=== PATIENT | male | born 1940 | race Caucasian/White ===

== ENCOUNTER 2017-10-27 19:10 | Inpatient (IN) ==
--- NOTE | 2017-10-27 19:26 | Emergency Department Note ---
Disposition Clinical Impression: Disc disorder of cervical region Disposition: Admitted As Inpatient Condition: Good Forms: ED Satisfaction Letter Time of Disposition: 20:21 General Adult HPI - General Chief complaint: ED Weakness Stated complaint: Weakness / Trouble Using Hands Time Seen by Provider: 10/27/17 19:16 Nursing Notes Reviewed: Yes Vital Signs Reviewed: Yes - History of Present Illness HPI Narrative: Several month history of productive cough. Recently had a bronchoscopy. No fevers. Complaining today of a weakness in his upper extremities earlier today. This is since resolved. Had a CT of his C-spine at the [facility] which showed some severe stenosis. No history of trauma. This relieved on its own with no medication. - Related Data Home Medications Medication Instructions Recorded Confirmed Acetaminophen [Tylenol] 650 mg PO BID 10/27/17 10/27/17 Albuterol Sulfate [Albuterol 2 puff IH Q4HR 10/27/17 10/27/17 Inhaler] Aspirin Enteric Coated [Aspirin EC] 81 mg PO DAILY 10/27/17 10/27/17 Atorvastatin [Lipitor] 40 mg PO HS 10/27/17 10/27/17 Cholecalciferol (D-3) [Vitamin D] 4,000 unit PO DAILY 10/27/17 10/27/17 DULoxetine [Cymbalta] 30 mg PO BID 10/27/17 10/27/17 Gabapentin [Neurontin] 600 mg PO TID 10/27/17 10/27/17 Lisinopril [Zestril] 5 mg PO DAILY 10/27/17 10/27/17 Loratadine [Allergy Relief] 10 mg PO DAILY 10/27/17 10/27/17 Multivitamin [One Daily Essential] 1 tab PO DAILY 10/27/17 10/27/17 Oxybutynin [Ditropan] 5 mg PO BID 10/27/17 10/27/17 Polyvinyl Alcohol [Artificial 1 drop OP QID PRN 10/27/17 10/27/17 Tears] Sildenafil Citrate [Viagra] 50 mg PO DAILY PRN 10/27/17 10/27/17 Tramadol HCl [Ultram] 50 mg PO BID PRN 10/27/17 10/27/17 glipiZIDE [Glucotrol] 5 mg PO BIDWM 10/27/17 10/27/17 Allergies Allergy/AdvReac Type Severity Reaction Status Date / Time Cyclobenzaprine Allergy See Verified 10/27/17 20:05 Comments methocarbamol Allergy See Verified 10/27/17 20:05 Comments All systems ED: reviewed and negative except as stated. Constitutional: Denies: fever, chills ENT ED: Denies: congestion Cardiovascular: Denies: chest pain, palpitations, syncope Respiratory: Reports: cough, dyspnea, hemoptysis (Since yesterday). Denies: wheezes Gastrointestinal: Denies: abdominal pain, nausea, vomiting, diarrhea, hematemesis, melena, hematochezia Genitourinary: Denies: urgency, dysuria, frequency Musculoskeletal: Denies: back pain, neck pain Neurological: Reports: weakness (Upper extremities bilaterally. Not at this time. Worse in the morning). Denies: headache Past Medical History - Past Medical History Attestation: Yes The following information was validated with the patient. Source: patient Physical Exam - General Limitations: no limitations General appearance: alert, in no apparent distress - Head Head exam: atraumatic, normocephalic, normal inspection - Eye Eye exam: Present: normal appearance, PERRL, EOMI - ENT ENT exam: normal exam, normal oropharynx, mucous membranes moist - Neck Neck exam: Present: normal inspection, full ROM, trachea midline - Chest Chest inspection: Present: normal inspection, symmetric chest wall rise. Absent : tenderness - Respiratory Respiratory exam: Present: respiratory distress (Patient is coughing frequently. ), other (Diminished lower lobes bilaterally) - Cardiovascular Cardiovascular exam: Present: regular rate, normal rhythm, normal heart sounds - Abdominal Exam Abdominal exam: Present: soft, Non-Tender. Absent: tenderness, distention, rigidity, organomegaly - Extremities Exam Extremities exam: Present: normal inspection, full ROM, normal capillary refill. Absent: tenderness, pedal edema, calf tenderness - Back Exam Back exam: Present: normal inspection, full ROM. Absent: tenderness - Neurological Exam Neurological exam: Present: alert, oriented X3, other (Patient has good shift production associate strengths bilaterally. Strong radial pulses bilaterally. 5 out of 5 strength in upper extremities at all joints. He is mentating appropriately.) - Psychiatric Psychiatric exam: Present: normal affect, normal mood - Skin Skin exam: Present: warm, dry, intact, normal color. Absent: rash, cyanosis, diaphoresis Course Course Narrative: Male patient presenting to the emergency department after being transferred from the [facility]. He had a workup there that was inclusive of a CT of his neck. This showed foraminal is stenosis. He is complaining of generalized weakness in both of his upper extremities. States it is worse in the morning. Denies any trauma. States that this is resolved at this time. 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 He is neurologically intact at this time. Denies any numbness or tingling in his extremities. He does report occasional shortness of breath. He states that he has been having shortness of breath for greater than 2 months. Does have a productive sputum for this time as well. Did try outpatient doxycycline with no relief of this. Possibly yesterday at the [facility] in [place]. He is had hemoptysis times. Not major. Just occasional. Denies any chest pain at this time. Does not wear oxygen at home and requiring 2 L of oxygen to maintain an oxygen saturation in the mid 90s. He drops to 86% on room air. His of overt edema to his extremities. Lung sounds are decreased in the bases. Abdomen is soft and nontender. Patient was given 10 mg of Decadron as well as albuterol treatment. He does have a productive cough while here. He is having a COPD exacerbation at this time. He also has a bumped troponin I 0.05. We will provide him with aspirin while here and admitted to the hospital for further evaluation of his spinal stenosis, elevated troponin and COPD. - Consultations Consultation #1: Dr Torres accepted Pt in stable condition. Time: 19:42 Vital Signs Temperature 98.2 F 10/27/17 19:18 Pulse Rate 87 10/27/17 19:18 Respiratory Rate 16 10/27/17 19:18 Blood Pressure 139/108 10/27/17 19:18 O2 Sat by Pulse Oximetry 96 10/27/17 19:18 Temperature 98.2 F 10/27/17 19:18 Pulse Rate 87 10/27/17 19:18 Respiratory Rate 16 10/27/17 19:18 Blood Pressure 139/108 10/27/17 19:18 O2 Sat by Pulse Oximetry 96 10/27/17 19:18 Oxygen Delivery Oxygen Delivery Room Air Medical Decision Making - Medical Records Medical records reviewed: Yes I reviewed the patient's medical records. - Lab Data Lab results reviewed: Yes I reviewed the patient's lab results. - Radiology Data Radiology results reviewed: Yes I reviewed the patient's radiology results.
[2017-10-27] MEDS ORDERED: Levofloxacin 750 MG/150 ML 750 MG/150 ML BAG IVPB ONE (19:41)
[2017-10-27] MEDS ORDERED: Aspirin 81 MG TAB.CHEW PO ONE (20:14)
--- NOTE | 2017-10-27 20:33 | Emergency Department Note ---
Disposition Clinical Impression: Disc disorder of cervical region Disposition: Admitted As Inpatient Condition: Good General Adult HPI - General Chief complaint: ED Neck Pain/Injury Stated complaint: Weakness / Trouble Using Hands Time Seen by Provider: 10/27/17 19:16 Source: EMS Limitations: no limitations - History of Present Illness Pain Scale: 4 - Related Data Home Medications Medication Instructions Recorded Confirmed Acetaminophen [Tylenol] 650 mg PO BID 10/27/17 10/27/17 Albuterol Sulfate [Albuterol 2 puff IH Q4HR 10/27/17 10/27/17 Inhaler] Aspirin Enteric Coated [Aspirin EC] 81 mg PO DAILY 10/27/17 10/27/17 Atorvastatin [Lipitor] 40 mg PO HS 10/27/17 10/27/17 Cholecalciferol (D-3) [Vitamin D] 4,000 unit PO DAILY 10/27/17 10/27/17 DULoxetine [Cymbalta] 30 mg PO BID 10/27/17 10/27/17 Gabapentin [Neurontin] 600 mg PO TID 10/27/17 10/27/17 Lisinopril [Zestril] 5 mg PO DAILY 10/27/17 10/27/17 Loratadine [Allergy Relief] 10 mg PO DAILY 10/27/17 10/27/17 Multivitamin [One Daily Essential] 1 tab PO DAILY 10/27/17 10/27/17 Oxybutynin [Ditropan] 5 mg PO BID 10/27/17 10/27/17 Polyvinyl Alcohol [Artificial 1 drop OP QID PRN 10/27/17 10/27/17 Tears] Sildenafil Citrate [Viagra] 50 mg PO DAILY PRN 10/27/17 10/27/17 Tramadol HCl [Ultram] 50 mg PO BID PRN 10/27/17 10/27/17 glipiZIDE [Glucotrol] 5 mg PO BIDWM 10/27/17 10/27/17 Allergies Allergy/AdvReac Type Severity Reaction Status Date / Time Cyclobenzaprine Allergy See Verified 10/27/17 20:05 Comments methocarbamol Allergy See Verified 10/27/17 20:05 Comments Constitutional: Denies: fever, chills ENT ED: Denies: congestion Cardiovascular: Denies: chest pain, palpitations, syncope Respiratory: Reports: cough, dyspnea, hemoptysis (Since yesterday). Denies: wheezes Gastrointestinal: Denies: abdominal pain, nausea, vomiting, diarrhea, hematemesis, melena, hematochezia Genitourinary: Denies: urgency, dysuria, frequency Musculoskeletal: Denies: back pain, neck pain Neurological: Reports: weakness (Upper extremities bilaterally. Not at this time. Worse in the morning). Denies: headache Past Medical History - Past Medical History Medical history: Reports: diabetes, hyperlipidemia, hypertension Psychiatric history: Reports: no psych history - Social History Smoking Status: Never smoker Smokeless Tobacco Status: No Alcohol use: Reports: none Drug use: Reports: none Physical Exam - General Limitations: no limitations General appearance: alert, in no apparent distress Course Vital Signs Temperature 98.2 F 10/27/17 19:18 Pulse Rate 87 10/27/17 19:18 Respiratory Rate 16 10/27/17 19:18 Blood Pressure 139/108 10/27/17 19:18 O2 Sat by Pulse Oximetry 96 10/27/17 19:18 Temperature 98.2 F 10/27/17 19:18 Pulse Rate 95 10/27/17 20:17 Respiratory Rate 18 10/27/17 20:17 Blood Pressure 150/85 10/27/17 20:17 O2 Sat by Pulse Oximetry 94 10/27/17 20:17 Oxygen Delivery Oxygen Delivery Nasal Cannula Attestation Statement - Attestation Attestation: I examined this patient and my medical decision-making was reviewed with the BANKING OFFICER/PA/Advanced Practice Nurse/Resident Physician. I agree with the documented findings, disposition and treatment plan as described except to the extent set forth below. Patient was sent from the [facility] for admission because of neck pain and the patient does have a CT showing significant changes however the patient also has several other problems including altered consciousness which has been occurring since he had a bronchoscopy yesterday and hypoxemia. He is supposed to be using oxygen at home but does not. His room air oxygen saturation was 86%. The patient does know the day of the week, month and year and they were the hospital. He is here with his who helps with the history. The patient will be admitted for further evaluation. 2032 Patient did use one Ultram this morning but no other pain medicine since that time. He did have a head CT at the [facility] which was negative. No head trauma. 2035
[2017-10-27] MEDS ORDERED: traMADol 50 MG TABLET PO PRN (21:03)
[2017-10-27] MEDS ORDERED: Ipratropium/Albuterol Neb 3 ML IH PRN (21:04)
[2017-10-27] MEDS ORDERED: Naloxone 0.4 MG/ML INJ IVP PRN (21:06)
[2017-10-27] MEDS ORDERED: D5% in Water 1,000 ML IVC PRN (21:09)
[2017-10-27] MEDS ORDERED: Dextrose Gel 15 GM/37.5 ML TUBE PO PRN ×2 (21:09)
[2017-10-27] MEDS ORDERED: *HR* Dextrose 50 % in Water (Syg) 50 ML SYRINGE IVP PRN (21:09)
--- NOTE | 2017-10-27 21:12 | Internal Med History&Physical ---
Date of Encounter: 10/27/17 Time of Encounter: 21:10 Internal Medicine - H&P: HPI Chief complaint: muscle weakness, productive cough for several months History of present illness: Mr. Carter is a 77 year old male with a history of diabetes, chronic pain, CKD, COPD, spinal stenosis who presents from the [facility] for chief complaint of bilateral upper extremity weakness and bilateral lower extremity proximal weakness since bronchoscopy yesterday. At baseline patient usually uses a crutch to ambulate due to balance issue and has been relying on crutches for the last 5 years. He also has a neurogenic bladder and straight catheters himself since 2012. He is a previous smoker and quit in 1996 - please smoking a couple packs a day for many years. He uses no oxygen baseline. He also has a history of spinal stenosis status post 3 back surgeries along his lumbar spine in 2002, 2010 and 2011. [facility] and [facility]. During procedure his neck was placed at an uncomfortable position. He was uncomfortable throughout procedure but did not voice this to his doctor. He was subsequently discharged home. On returning home he noted bilateral proximal lower extremity weakness and was unable to get out of the car without help. Associated with this lower extremity weakness, he also exhibited bilateral upper extremity weakness that made it difficult for him to raise both arms above the level of the elbows without mild tremor. Given these symptoms he was advised by the [facility] [facility] [place]. After a summary evaluation at [facility], he was referred to [facility] for admission. On review of symptoms with patience and , it appears that his bilateral upper extremity weakness has been slowly improving with time since the procedure. In the ER patient was found to desaturate on room air to 86%. On review he has noted productive cough for the last several months and failed outpatient doxycycline and prednisone 2 weeks ago. His oxygenation improved on 2 L nasal cannula. He is previous smoker and is no longer smoking. He uses no oxygen at baseline. Review of systems noted nonspecific occipital headache. CT [facility] CT comprising of head CT and C- spine CT which demonstrated no acute cranial findings but noted significant spinal stenosis on C-spine imaging. Past Med Surg Social Fam HX - Past Medical History Medical history: diabetes, hyperlipidemia, hypertension Psychiatric history: no psych history - Social History Smoking Status: Never smoker Smokeless Tobacco Status: No Alcohol use: none Drug use: none Internal Medicine - H&P: Meds Acetaminophen [Tylenol] 650 mg PO BID 10/27/17 [History] Albuterol Sulfate [Albuterol Inhaler] 2 puff IH Q4HR 10/27/17 [History] Aspirin Enteric Coated [Aspirin EC] 81 mg PO DAILY 10/27/17 [History] Atorvastatin [Lipitor] 40 mg PO HS 10/27/17 [History] Cholecalciferol (D-3) [Vitamin D] 4,000 unit PO DAILY 10/27/17 [History] DULoxetine [Cymbalta] 30 mg PO BID 10/27/17 [History] Gabapentin [Neurontin] 600 mg PO TID 10/27/17 [History] Lisinopril [Zestril] 5 mg PO DAILY 10/27/17 [History] Loratadine [Allergy Relief] 10 mg PO DAILY 10/27/17 [History] Multivitamin [One Daily Essential] 1 tab PO DAILY 10/27/17 [History] Oxybutynin [Ditropan] 5 mg PO BID 10/27/17 [History] Polyvinyl Alcohol [Artificial Tears] 1 drop OP QID PRN 10/27/17 [History] Sildenafil Citrate [Viagra] 50 mg PO DAILY PRN 10/27/17 [History] Tramadol HCl [Ultram] 50 mg PO BID PRN 10/27/17 [History] glipiZIDE [Glucotrol] 5 mg PO BIDWM 10/27/17 [History] 3 Allergy/AdvReac Type Severity Reaction Status Date / Time Cyclobenzaprine Allergy See Verified 10/27/17 20:05 Comments methocarbamol Allergy See Verified 10/27/17 20:05 Comments All Systems PM: A 10-system review of systems was performed and is negative for pertinent findings except as documented above in the HPI. Review of systems: ROS 14 point review of systems reviewed as best as possible given presentation. Pertinent positive or negative as per HPI or otherwise reviewed as negative - Constitutional Vitals: Temp Pulse Resp BP Pulse Ox 98.2 F 95 18 150/85 94 10/27/17 19:18 10/27/17 20:17 10/27/17 20:17 10/27/17 20:17 10/27/17 20:17 Exam: General - AAO x 3 Psych - Appropriate affect/speech. No agitation Eyes - MARQUISE. Eye lids intact. No scleral icterus Neuro - bilateral upper extremity weakness 4 minus out of 5, unable to lift both arms of both shoulders with notable weakness appreciated. No overt sensory deficits. Gait not tested but power measured as 4+ out of 5 bilateral lower extremity. Otherwise no central neuro deficits on inspection Heart - Sinus. RRR. S1 and S2 present. No added HS/murmurs appreciated. No elevated JVD appreciated. Lung - Adequate air entry b/l, No crackles, scant wheezes appreciated GI - Soft, non-tender. No hepatosplenomegaly/ascites. BS+ - No CVA/suprapubic tenderness or palpable bladder distension Skin - Intact. No rash/petechiae/ecchymosis. Warm extremities MSK - Joints with normal ROM. 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 This is likely related to position while undergoing bronchoscopy procedure now symptoms are slowly improving will consult PT/OT for further therapy and monitor closely for improvement (2) Acute bronchitis Current Visit: Yes Status: Acute Assessment and plan: IV steroids, IV azithro, duonebs - if improve a.m, would wean off send RVP Qualifiers: Bronchitis organism: unspecified organism Qualified Code(s): J20.9 - Acute bronchitis, unspecified (3) DMII (diabetes mellitus, type 2) Current Visit: Yes Status: Acute Assessment and plan: hold oral med ISS while inpatient Qualifiers: Chronic kidney disease stage: stage 3 (moderate) Qualified Code(s): E11.22 - Type 2 diabetes mellitus with diabetic chronic kidney disease; N18.3 - Chronic kidney disease, stage 3 (moderate) (4) CKD (chronic kidney disease) Current Visit: Yes Status: Acute Assessment and plan: CKD renal diet Qualifiers: Chronic kidney disease stage: stage 3 (moderate) Qualified Code(s): N18.3 - Chronic kidney disease, stage 3 (moderate) (5) Hyperkalemia Current Visit: Yes Status: Acute Assessment and plan: Mild hyperK - 5.0 from labs performed at the [place] repeat BMP in a.m renal diet hold home Lisinopril (6) Neurogenic bladder Current Visit: Yes Status: Acute Assessment and plan: straight caths intermittently - chronic - Time Spent With Patient Total time spent is greater than 50% in coordination of care (as documented) at patient's floor/unit and/or counseling patient:
[2017-10-27] MEDS ORDERED: Insulin LISPRO 300 UNITS/3 ML VIAL SQ SCH ×2 (21:15→21:45)
[2017-10-27] MEDS ORDERED: Dexamethasone 10 MG/ML VIAL IVP SCH (21:45)
[2017-10-27] MEDS: Insulin LISPRO 300 UNITS/3 ML VIAL SQ SCH (21:55)
[2017-10-27] MEDS: Ipratropium/Albuterol Neb 3 ML IH SCH (22:08)
[2017-10-27] MEDS: Acetaminophen 325 MG TABLET PO SCH (22:13)
[2017-10-28] MEDS: Ipratropium/Albuterol Neb 3 ML IH SCH ×3 (04:15→15:39)
[2017-10-28] MEDS ORDERED: *HR* Heparin 5,000 UNIT/ML VIAL SQ SCH (06:00)
[2017-10-28 06:06] LABS: Basophils % 0.4 %; Hematocrit 35.3 % (37.5-50.1); Hemoglobin 11.1 g/dL (12.9-16.9); Immature Granulocytes % 0.4 % (0-4); Lymphocytes # 0.7 K/mcL (0.6-4.6); Lymphocytes % 13.2 %; Mean Corpuscular HGB Conc 31.4 g/dL (31.6-35.5); Mean Corpuscular Hemoglobin 30.9 pg (28.0-33.3); Mean Corpuscular Volume 98.3 fL (83.0-100.0); Monocytes # 0.3 K/mcL (0.0-1.3); Monocytes % 5.5 %; Neutrophils # 4.5 K/mcL (1.6-8.9); Platelet Count 117 K/mcL (140-400); Red Blood Count 3.59 M/mcL (4.19-5.50); Red Cell Distribution Width 12.8 % (11.5-14.5); Segmented Neutrophils % 80.5 %
[2017-10-28 06:22] LABS: Calcium 8.5 mg/dL (8.6-10.3); Magnesium 2.1 mg/dL (1.6-2.6); Potassium 5.7 mEq/L (3.5-5.1)
[2017-10-28] MEDS ORDERED: Insulin LISPRO 300 UNITS/3 ML VIAL SQ SCH (07:30)
[2017-10-28 08:38] LABS: Adenovirus Not Detected (Not Detect); Bordetella Pertussis Not Detected (Not Detect); Coronavirus 229E Not Detected (Not Detect); Coronavirus HKU1 Not Detected (Not Detect); Coronavirus NL63 Not Detected (Not Detect); Coronavirus OC43 Not Detected (Not Detect); Human Metapneumovirus Not Detected (Not Detect); Human Rhinovirus/Enterovirus Not Detected (Not Detect); Influenza A Subtype 2009 H1 Not Detected (Not Detect); Influenza A Untypeable Not Detected (Not Detect); Influenza B Not Detected (Not Detect); Parainfluenza Virus 1 Not Detected (Not Detect); Parainfluenza Virus 2 Not Detected (Not Detect); Parainfluenza Virus 3 Not Detected (Not Detect); Parainfluenza Virus 4 Not Detected (Not Detect); Respiratory Syncytial Virus Not Detected (Not Detect)
[2017-10-28 08:39] LABS: Chlamydophila pneumoniae Not Detected (Not Detect); Mycoplasma pneumoniae Not Detected (Not Detect)
[2017-10-28] MEDS: Insulin LISPRO 300 UNITS/3 ML VIAL SQ SCH ×2 (08:41→12:08)
[2017-10-28] MEDS ORDERED: Gabapentin 300 MG CAPSULE PO SCH (09:00)
[2017-10-28] MEDS ORDERED: Azithromycin 500 MG in D5% in Water 250 ML IVPB SCH (09:00)
[2017-10-28] MEDS ORDERED: MethylPREDNISolone 40 MG/ML VIAL IVP SCH (09:00)
[2017-10-28] MEDS ORDERED: Cholecalciferol (D-3) 1,000 UNIT TABLET PO SCH (09:00)
[2017-10-28] MEDS ORDERED: Aspirin Enteric Coated 81 MG Tablet PO SCH (09:00)
[2017-10-28] MEDS: Acetaminophen 325 MG TABLET PO SCH (09:21)
[2017-10-28] MEDS ORDERED: 0.9 % Sodium Chloride 1,000 ML IVC ONE (10:39)
--- NOTE | 2017-10-28 15:07 | Discharge Summary ---
Orders not resulted at time of discharge: Pending orders 10/28/17 14:37 BMP [Basic Metabolic Panel] Stat Date of Encounter: 10/28/17 Time of Encounter: 15:04 - Discharge Diagnosis (1) Disc disorder of cervical region Priority: Primary Status: Acute (2) DMII (diabetes mellitus, type 2) Priority: Primary Status: Acute Qualifiers: Chronic kidney disease stage: stage 3 (moderate) Qualified Code(s): E11.22 - Type 2 diabetes mellitus with diabetic chronic kidney disease; N18.3 - Chronic kidney disease, stage 3 (moderate) (3) Acute bronchitis Priority: Primary Status: Acute Qualifiers: Bronchitis organism: unspecified organism Qualified Code(s): J20.9 - Acute bronchitis, unspecified (4) CKD (chronic kidney disease) Priority: Primary Status: Acute Qualifiers: Chronic kidney disease stage: stage 3 (moderate) Qualified Code(s): N18.3 - Chronic kidney disease, stage 3 (moderate) (5) Hyperkalemia Priority: Primary Status: Acute (6) Neurogenic bladder Priority: Primary Status: Acute Hospital course: Mr. Carter is a 77 year old male Mr. Carter is a 77 year old male with a history of diabetes, chronic pain, CKD, COPD, spinal stenosis who presented to [facility] of bilateral upper extremity weakness and bilateral lower extremity proximal weakness since bronchoscopy at [facility] the day prior. He was admitted for further workup and treatment. Bilateral upper and lower extreme weakness resolved without intervention; patient thinks this is secondary to residual anesthesia. He does have known cervical stenosis however denies radiculopathy, no pain. He was found to be hyperkalemic with K of 5.7. Home lisinopril stopped and he received IV fluids with improvement in potassium to 4.9. He was started on low-dose amlodipine for blood pressure. He is also found to have COPD exacerbation and was discharged home on Z-Galen, steroid burst. Regarding his cervical stenosis he is asymptomatic and follows with neurosurgery and [place]. He does not wish to pursue treatment for this at this time. 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 Acute symptoms resolved and requested discharge home. He was advised to continue holding lisinopril, encourage adequate hydration. Advised to establish care with PCP at the [facility]. patient and verbalize understanding. Discharge discussed with: patient - Time Spent with Patient Total time spent providing and/or coordinating discharge services: - Discharge Medications Prescriptions: amLODIPine [Norvasc] 5 mg PO DAILY #30 tablet Azithromycin [Azithromycin 6-Tab Pack] 250 mg PO PER PKG DI #6 tab predniSONE [PredniSONE] 40 mg PO DAILY 5 Days #10 tablet Home Medications: Acetaminophen [Tylenol] 650 mg PO BID 10/27/17 [History] Albuterol Sulfate [Albuterol Inhaler] 2 puff IH Q4HR 10/27/17 [History] Aspirin Enteric Coated [Aspirin EC] 81 mg PO DAILY 10/27/17 [History] Atorvastatin [Lipitor] 40 mg PO HS 10/27/17 [History] Cholecalciferol (D-3) [Vitamin D] 4,000 unit PO DAILY 10/27/17 [History] DULoxetine [Cymbalta] 30 mg PO BID 10/27/17 [History] Gabapentin [Neurontin] 600 mg PO TID 10/27/17 [History] Loratadine [Allergy Relief] 10 mg PO DAILY 10/27/17 [History] Multivitamin [One Daily Essential] 1 tab PO DAILY 10/27/17 [History] Oxybutynin [Ditropan] 5 mg PO BID 10/27/17 [History] Polyvinyl Alcohol [Artificial Tears] 1 drop OP QID PRN 10/27/17 [History] Sildenafil Citrate [Viagra] 50 mg PO DAILY PRN 10/27/17 [History] Tramadol HCl [Ultram] 50 mg PO BID PRN 10/27/17 [History] glipiZIDE [Glucotrol] 5 mg PO BIDWM 10/27/17 [History] Azithromycin [Azithromycin 6-Tab Pack] 250 mg PO PER PKG DI #6 tab 10/28/17 [Rx] amLODIPine [Norvasc] 5 mg PO DAILY #30 tablet 10/28/17 [Rx] predniSONE [PredniSONE] 40 mg PO DAILY 5 Days #10 tablet 10/28/17 [Rx] Allergies/Adverse Reactions: 3 Allergy/AdvReac Type Severity Reaction Status Date / Time Cyclobenzaprine Allergy See Verified 10/27/17 20:05 Comments methocarbamol Allergy See Verified 10/27/17 20:05 Comments Date of admission: 10/27/17 19:57 Primary care physician: PCP NONE Consults: 10/27/17 21:08 Consult to Physical Therapy [CONS] Routine Comment: Evaluate, develop and implement POC Reason for Consult: ambulate assess for placement need Does patient have active BEDREST order?: Yes Is patient medically & hemodynamically stable?: Yes Patient assessed for mobility or mobilized this visit?: Yes Discharging clinician: Ana Rosa Almazan Anticipated date of discharge: 10/28/17 - Constitutional Vitals: Temp Pulse Resp BP Pulse Ox 97.8 F 76 16 141/71 90 10/28/17 11:15 10/28/17 11:15 10/28/17 11:15 10/28/17 14:31 10/28/17 11:15 General appearance: Present: A&O X 3, no acute distress - Head Head exam: Present: atraumatic, normocephalic - Eye Eye exam: Present: PERRL, conjuntiva pink, sclera anicteric Pupils: Present: PERRL - Neck Neck exam general surgery: Present: supple, trachea midline. Absent: lymphadenopathy - Respiratory Respiratory exam: Present: CTAB. Absent: accessory muscle use, rales, rhonchi, wheezes - Cardiovascular Cardiovascular exam: Present: RRR, +S1, +S2. Absent: diastolic murmur, gallop, rubs, systolic murmur - GI/Abdominal GI/Abdominal exam: Present: normal bowel sounds, soft, no peritoneal signs. Absent: distended, tenderness - Extremities Exam Extremities exam: Present: warm, radial pulses palpable and symmetrical. Absent : calf tenderness, cyanotic, pedal edema - Neurological Exam Neurological exam: Present: CN II-XII intact, oriented X3, no focal deficits. Absent: pronater drift, facial droop, speech deficit - Skin Skin exam: Present: dry, intact - Patient Status Disposition: Home, Self-Care Condition: Good Functional capacity at discharge: uses cane/walker Overall status at discharge: patient is back to baseline - Discharge Instructions Instructions: Azithromycin (By mouth), Prednisone (By mouth), Amlodipine (By mouth), Hyperkalemia (DC) Follow Up With: Kwadwo Trejo [Family Provider] - NONE,PCP [Primary Care Provider] - (Please establish care with a primary care physician through the [facility]. It is recommended that you have a repeat basic metabolic panel within one week) - Diet and Activity Activity: increase activity as tolerated Diet: advance to your usual diet, other
[2017-10-28 15:09] VITALS: BP 147/71
[2017-10-28 15:20] LABS: Calcium 8.5 mg/dL (8.6-10.3); Potassium 4.9 mEq/L (3.5-5.1)
== END 2017-10-28 16:50 | disposition home or self-care (01) | DRG 202 ==
LOC: EMEROO 19:10 → 3BNU 19:57
PROVIDERS: ADMIT Nurse Practitioner Family; ATTEND Nurse Practitioner Family

== ENCOUNTER 2018-06-17 14:34 | Inpatient (IN) ==
[2018-06-17] MEDS ORDERED: Isovue-370 500 ML BOTTLE IVP ONE (15:29)
--- NOTE | 2018-06-17 15:39 | Emergency Department Note ---
Disposition Clinical Impression: TEE (acute kidney injury) Community acquired pneumonia Qualifiers: Laterality: unspecified laterality Qualified Code(s): J18.9 - Pneumonia, unspecified organism Lung cancer Qualifiers: Laterality: unspecified laterality Lung location: unspecified part of lung Qualified Code(s): C34.90 - Malignant neoplasm of unspecified part of uns pecified bronchus or lung UTI (urinary tract infection) Qualifiers: Urinary tract infection type: site unspecified Hematuria presence: without hematuria Qualified Code(s): N39.0 - Urinary tract infection, site not specified Disposition: Admitted As Inpatient [facility]Primary Care Provider[facility] - Forms: ED Satisfaction Letter Time of Disposition: 18:07 General Adult HPI - General Chief complaint: ED Shortness of Breath/Dyspnea Stated complaint: DANIEL Time Seen by Provider: 06/17/18 14:48 Source: patient, family Limitations: no limitations - History of Present Illness HPI Narrative: Patient is 78-year-old male with history of squamous cell lung carcinoma, diabetes who presents to the ED due to 1 week of shortness of breath, cough, elevated blood glucose levels over 400. Patient had cough and shortness of breath that has been constant. nothing to make it better. Patient also admits to having fevers and chills. Patient says he has increased urinary incontinence over the past week. He has increased fatigue, weakness, decreased appetite over the past. Patient has lost 8 pounds in the past month. Patient also has some bowel incontinence however this is not new in the past week. Patient denies dysuria, denies chest pain. Patient has a port. Pain Scale: 0 - Related Data Home Medications Medication Instructions Recorded Confirmed Acetaminophen [Tylenol] 650 mg PO BID 10/27/17 06/09/18 Aspirin Enteric Coated [Aspirin EC] 81 mg PO DAILY 10/27/17 06/09/18 Atorvastatin [Lipitor] 40 mg PO HS 10/27/17 06/09/18 Cholecalciferol (D-3) [Vitamin D] 4,000 unit PO DAILY 10/27/17 06/09/18 DULoxetine [Cymbalta] 30 mg PO BID 10/27/17 06/09/18 Gabapentin [Neurontin] 600 mg PO QID 10/27/17 06/09/18 Multivitamin [One Daily Essential] 1 tab PO DAILY 10/27/17 06/09/18 Tramadol HCl [Ultram] 50 mg PO BID PRN 10/27/17 06/09/18 glipiZIDE [Glucotrol] 10 mg PO QPM 10/27/17 06/09/18 Cyanocobalamin (Vitamin B-12) 1,000 mcg PO QTUTHSA 12/21/17 06/09/18 [Vitamin B-12] amLODIPine [Norvasc] 5 mg PO DAILY PRN 04/14/18 06/09/18 Previous Rx's Medication Instructions Recorded Lidocaine/Prilocaine [Emla] 1 appl TP DAILY #30 gm 01/02/18 Promethazine [Phenergan] 25 mg PO Q6HR PRN #30 tablet 01/02/18 OxyCODONE Oral Soln [OxyCODONE 5 mg PO Q4-6H PRN 7 Days #210 mls 02/13/18 ORAL SOLN] Magic Mouthwash [Magic Mouthwash 5 ml PO Q2H PRN #480 ml 03/17/18 BLM] Bisacodyl [Dulcolax] 5 mg PO DAILY PRN #30 tablet 04/28/18 GuaiFENesin/Dextromethorphan 5 ml PO Q6HR PRN #240 ml 04/28/18 [Robitussin/Dm] Sucralfate [Carafate] 1 gm PO QIDAC #1 oral.susp 04/28/18 Budesonide/Formoterol 160/4.5 2 puff IH BID #1 hfa.aer.ad 06/09/18 [Symbicort 160/4.5] Cetirizine HCl [Zyrtec] 10 mg PO DAILY #90 capsule 06/09/18 Allergies Allergy/AdvReac Type Severity Reaction Status Date / Time Cyclobenzaprine Allergy See Verified 06/09/18 14:16 Comments methocarbamol Allergy See Verified 06/09/18 14:16 Comments Review of Systems: Patient is pleasant Constitutional: Reports: as per HPI Eyes: Denies: vision change ENT ED: Reports: as per HPI Cardiovascular: Reports: as per HPI Respiratory: Reports: as per HPI Gastrointestinal: Denies: abdominal pain, nausea, vomiting, diarrhea Genitourinary: Reports: as per HPI Musculoskeletal: Denies: arthralgia, myalgia Integumentary: Denies: rash Neurological: Reports: headache. Denies: weakness Endocrine: Reports: as per HPI Hematological/Lymphatic: Denies: lymphadenopathy Past Medical History - Past Medical History Medical history: Reports: cancer, diabetes, hyperlipidemia, hypertension Psychiatric history: Reports: no psych history - Social History Smoking Status: Former smoker Smokeless Tobacco Status: No Alcohol use: Reports: none Drug use: Reports: none Physical Exam - General Limitations: no limitations General appearance: alert, in no apparent distress - Head Head exam: atraumatic, normocephalic, normal inspection - Eye Eye exam: Present: normal appearance, PERRL, EOMI - Neck Neck exam: Present: normal inspection, full ROM, trachea midline - Chest Chest inspection: Present: normal inspection, symmetric chest wall rise, other (Patient has a port right chest. No warmth or erythema Over port) - Respiratory Respiratory exam: Present: other (Babasilar crackles) - Cardiovascular Cardiovascular exam: Present: regular rate, normal rhythm, normal heart sounds, +S1, +S2. Absent: bradycardia, tachycardia, systolic murmur, diastolic murmur - Abdominal Exam Abdominal exam: Present: soft, Non-Tender - Extremities Exam Extremities exam: Present: normal inspection, full ROM. Absent: tenderness, pedal edema, calf tenderness - Psychiatric Psychiatric exam: Present: normal affect, normal mood - Skin Skin exam: Present: warm, dry, intact Course Vital Signs Temperature 98.5 F 06/17/18 14:37 Pulse Rate 92 06/17/18 14:37 Respiratory Rate 24 06/17/18 14:37 Blood Pressure 149/67 06/17/18 14:37 O2 Sat by Pulse Oximetry 81 06/17/18 14:37 Temperature 98.5 F 06/17/18 14:37 Pulse Rate 95 06/17/18 17:06 Respiratory Rate 22 06/17/18 17:06 Blood Pressure 160/80 06/17/18 17:06 O2 Sat by Pulse Oximetry 92 06/17/18 17:06 Oxygen Delivery Oxygen Delivery Nasal Cannula Medical Decision Making - [facility] Narrative Medical decision making narrative: Patient is tachycardic. 81 pulse ox on room air when he came to the ED. Improved to 95% on 1 L nasal cannula. Concern for infection with recent chemotherapy. CTA because of History of lung cancer. UA ordered. Labs lactic acid blood cultures also sent off. elevated white count. Patient also has UTI per urinalysis. CT chest is still pending. UA is elevated. Patient also has TEE have elevated creatinine and decreased GFR. PAtient has a multifocal pneumonia. Start broad spectrum antibiotics. Dr. Henderson accepts - Lab Data Result diagrams: 06/17/18 16:00 06/17/18 16:00 Lab Results 06/17/18 06/17/18 06/17/18 Range/Units 15:52 16:00 16:00 WBC 14.7 H (4.3-11.1) K/mcL RBC 3.41 L (4.19-5.50) M/mcL Hgb 10.7 L (12.9-16.9) g/dL Hct 33.3 L (37.5-50.1) % MCV 97.7 (83.0-100.0) fL MCH 31.4 (28.0-33.3) pg MCHC 32.1 (31.6-35.5) g/dL RDW 12.4 (11.5-14.5) % Plt Count 193 (140-400) K/mcL MPV 9.6 (9.4-12.4) fL Immature Gran % 0.7 (0-4) % Seg Neutrophils % 89.5 % Lymphocytes % 4.0 % Monocytes % 5.6 % Eosinophils % 0.1 % Basophils % 0.1 % Neutrophils # 13.2 H (1.6-8.9) K/mcL Lymphocytes # 0.6 (0.6-4.6) K/mcL Monocytes # 0.8 (0.0-1.3) K/mcL Eosinophils # 0.0 (0.0-0.6) K/mcL Basophils # 0.0 (0.0-0.2) K/mcL Sodium (136-145) mEq/L Potassium (3.5-5.1) mEq/L Chloride (98-107) mEq/L Carbon Dioxide (23-29) mEq/L BUN (8-23) mg/dL Creatinine (0.70-1.30) mg/dL Est GFR ( Amer) (> 60) Est GFR (Non-Af Amer) (> 60) BUN/Creatinine Ratio (6-26) Glucose (70-105) mg/dL Calculated Osmolality (280-300) Lactic Acid 1.1 (0.5-2.2) mmol/L Calcium (8.6-10.3) mg/dL B-Natriuretic Peptide (Less than 100) pg/mL Urine Color Yellow (Yellow) Urine Clarity Turbid A (Clear) Urine pH 5.0 (5.0-8.0) pH Units Ur Specific [place] 1.022 (1.010-1.025) Urine Protein 100 H (Neg-Trace) mg/dL Urine Glucose (UA) 250 H (Normal) mg/dL Urine Ketones Negative (Negative) mg/dL Urine Blood Moderate H (Negative) Urine Nitrite Negative (Negative) Urine Bilirubin Negative (Negative) Urine Urobilinogen Normal (Normal) mg/dL Ur Leukocyte Esterase Large H (Negative) Urine Microscopic RBC 0-3 (0-3) per hpf Urine Microscopic WBC TNTC H (0-3) per hpf Ur Squamous Epith Cells Many H (None-Few) per lpf Urine Bacteria Many H (None-Few) per hpf Hyaline Casts None Seen (None-Few) per lpf Ur Culture Indicated? NO. A (NO) 06/17/18 06/17/18 Range/Units 16:00 16:00 WBC (4.3-11.1) K/mcL RBC (4.19-5.50) M/mcL Hgb (12.9-16.9) g/dL Hct (37.5-50.1) % MCV (83.0-100.0) fL MCH (28.0-33.3) pg MCHC (31.6-35.5) g/dL RDW (11.5-14.5) % Plt Count (140-400) K/mcL MPV (9.4-12.4) fL Immature Gran % (0-4) % Seg Neutrophils % % Lymphocytes % % Monocytes % % Eosinophils % % Basophils % % Neutrophils # (1.6-8.9) K/mcL Lymphocytes # (0.6-4.6) K/mcL Monocytes # (0.0-1.3) K/mcL Eosinophils # (0.0-0.6) K/mcL Basophils # (0.0-0.2) K/mcL Sodium 132 L (136-145) mEq/L Potassium 4.8 (3.5-5.1) mEq/L Chloride 96 L (98-107) mEq/L Carbon Dioxide 25 (23-29) mEq/L BUN 48 H (8-23) mg/dL Creatinine 2.10 H (0.70-1.30) mg/dL Est GFR ( Amer) 37 L (> 60) Est GFR (Non-Af Amer) 31 L (> 60) BUN/Creatinine Ratio 23 (6-26) Glucose 376 H (70-105) mg/dL Calculated Osmolality 302 H (280-300) Lactic Acid (0.5-2.2) mmol/L Calcium 8.8 (8.6-10.3) mg/dL B-Natriuretic Peptide 223 H (Less than 100) pg/mL Urine Color (Yellow) Urine Clarity (Clear) Urine pH (5.0-8.0) pH Units Ur Specific [place] (1.010-1.025) Urine Protein (Neg-Trace) mg/dL Urine Glucose (UA) (Normal) mg/dL Urine Ketones (Negative) mg/dL Urine Blood (Negative) Urine Nitrite (Negative) Urine Bilirubin (Negative) Urine Urobilinogen (Normal) mg/dL Ur Leukocyte Esterase (Negative) Urine Microscopic RBC (0-3) per hpf Urine Microscopic WBC (0-3) per hpf Ur Squamous Epith Cells (None-Few) per lpf Urine Bacteria (None-Few) per hpf Hyaline Casts (None-Few) per lpf Ur Culture Indicated? (NO)
[2018-06-17 16:12] LABS: Basophils % 0.1 %; Eosinophils % 0.1 %; Hematocrit 33.3 % (37.5-50.1); Hemoglobin 10.7 g/dL (12.9-16.9); Immature Granulocytes % 0.7 % (0-4); Lymphocytes # 0.6 K/mcL (0.6-4.6); Mean Corpuscular HGB Conc 32.1 g/dL (31.6-35.5); Mean Corpuscular Hemoglobin 31.4 pg (28.0-33.3); Mean Corpuscular Volume 97.7 fL (83.0-100.0); Mean Platelet Volume 9.6 fL (9.4-12.4); Monocytes # 0.8 K/mcL (0.0-1.3); Monocytes % 5.6 %; Neutrophils # 13.2 K/mcL (1.6-8.9); Platelet Count 193 K/mcL (140-400); Red Blood Count 3.41 M/mcL (4.19-5.50); Red Cell Distribution Width 12.4 % (11.5-14.5); Segmented Neutrophils % 89.5 %
[2018-06-17 16:20] LABS: Bilirubin,Urine Negative (Negative); Blood,Urine Moderate (Negative); Clarity,Urine Turbid (Clear); Color,Urine Yellow (Yellow); Glucose,Urine (UA) 250 mg/dL (Normal); Ketones,Urine Negative (Negative); Leukocyte Esterase,Urine Large (Negative); Nitrite,Urine Negative (Negative); Protein,Urine 100 mg/dL (Neg-Trace); Specific Gravity,Urine 1.022 (1.010-1.025); Urobilinogen,Urine Normal (Normal)
[2018-06-17 16:22] LABS: Bacteria,Urine Many per hpf (None-Few); RBC,Urine 0-3 per hpf (0-3); Squamous Epithelial Cell,Urine Many per lpf (None-Few); WBC,Urine TNTC per hpf (0-3)
[2018-06-17 16:29] LABS: Calcium 8.8 mg/dL (8.6-10.3); Potassium 4.8 mEq/L (3.5-5.1)
[2018-06-17 16:57] LABS: Hyaline Casts,Urine None Seen per lpf (None-Few)
[2018-06-17] MEDS ORDERED: 0.9 % Sodium Chloride 500 ML IVC ONE (17:09)
[2018-06-17] MEDS ORDERED: Ipratropium/Albuterol Neb 3 ML IH ONE (18:09)
[2018-06-17] MEDS ORDERED: methylPREDNISolone 125 MG/2 ML VIAL IVP ONE (18:09)
--- NOTE | 2018-06-17 18:13 | Emergency Department Note ---
Disposition Clinical Impression: TEE (acute kidney injury) Community acquired pneumonia Qualifiers: Laterality: unspecified laterality Qualified Code(s): J18.9 - Pneumonia, unspecified organism Lung cancer Qualifiers: Laterality: unspecified laterality Lung location: unspecified part of lung Qualified Code(s): C34.90 - Malignant neoplasm of unspecified part of uns pecified bronchus or lung UTI (urinary tract infection) Qualifiers: Urinary tract infection type: site unspecified Hematuria presence: without hematuria Qualified Code(s): N39.0 - Urinary tract infection, site not specified Disposition: Admitted As Inpatient General Adult HPI - General Chief complaint: ED Shortness of Breath/Dyspnea Stated complaint: JADYN Time Seen by Provider: 06/17/18 14:48 Source: patient, family Limitations: no limitations - History of Present Illness Pain Scale: 0 - Related Data Home Medications Medication Instructions Recorded Confirmed Acetaminophen [Tylenol] 650 mg PO BID 10/27/17 06/09/18 Aspirin Enteric Coated [Aspirin EC] 81 mg PO DAILY 10/27/17 06/09/18 Atorvastatin [Lipitor] 40 mg PO HS 10/27/17 06/09/18 Cholecalciferol (D-3) [Vitamin D] 4,000 unit PO DAILY 10/27/17 06/09/18 DULoxetine [Cymbalta] 30 mg PO BID 10/27/17 06/09/18 Gabapentin [Neurontin] 600 mg PO QID 10/27/17 06/09/18 Multivitamin [One Daily Essential] 1 tab PO DAILY 10/27/17 06/09/18 Tramadol HCl [Ultram] 50 mg PO BID PRN 10/27/17 06/09/18 glipiZIDE [Glucotrol] 10 mg PO QPM 10/27/17 06/09/18 Cyanocobalamin (Vitamin B-12) 1,000 mcg PO QTUTHSA 12/21/17 06/09/18 [Vitamin B-12] amLODIPine [Norvasc] 5 mg PO DAILY PRN 04/14/18 06/09/18 Previous Rx's Medication Instructions Recorded Lidocaine/Prilocaine [Emla] 1 appl TP DAILY #30 gm 01/02/18 Promethazine [Phenergan] 25 mg PO Q6HR PRN #30 tablet 01/02/18 OxyCODONE Oral Soln [OxyCODONE 5 mg PO Q4-6H PRN 7 Days #210 mls 02/13/18 ORAL SOLN] Magic Mouthwash [Magic Mouthwash 5 ml PO Q2H PRN #480 ml 03/17/18 BLM] Bisacodyl [Dulcolax] 5 mg PO DAILY PRN #30 tablet 04/28/18 GuaiFENesin/Dextromethorphan 5 ml PO Q6HR PRN #240 ml 04/28/18 [Robitussin/Dm] Sucralfate [Carafate] 1 gm PO QIDAC #1 oral.susp 04/28/18 Budesonide/Formoterol 160/4.5 2 puff IH BID #1 hfa.aer.ad 06/09/18 [Symbicort 160/4.5] Cetirizine HCl [Zyrtec] 10 mg PO DAILY #90 capsule 06/09/18 Allergies Allergy/AdvReac Type Severity Reaction Status Date / Time Cyclobenzaprine Allergy See Verified 06/09/18 14:16 Comments methocarbamol Allergy See Verified 06/09/18 14:16 Comments Constitutional: Reports: as per HPI Eyes: Denies: vision change ENT ED: Reports: as per HPI Cardiovascular: Reports: as per HPI Respiratory: Reports: as per HPI Gastrointestinal: Denies: abdominal pain, nausea, vomiting, diarrhea Genitourinary: Reports: as per HPI Musculoskeletal: Denies: arthralgia, myalgia Integumentary: Denies: rash Neurological: Reports: headache. Denies: weakness Endocrine: Reports: as per HPI Hematological/Lymphatic: Denies: lymphadenopathy Past Medical History - Past Medical History Medical history: Reports: cancer, diabetes, hyperlipidemia, hypertension Psychiatric history: Reports: no psych history - Social History Smoking Status: Former smoker Smokeless Tobacco Status: No Alcohol use: Reports: none Drug use: Reports: none Physical Exam - General Limitations: no limitations General appearance: alert, in no apparent distress Course Vital Signs Temperature 98.5 F 06/17/18 14:37 Pulse Rate 92 06/17/18 14:37 Respiratory Rate 24 06/17/18 14:37 Blood Pressure 149/67 06/17/18 14:37 O2 Sat by Pulse Oximetry 81 06/17/18 14:37 Temperature 98.5 F 06/17/18 14:37 Pulse Rate 95 06/17/18 17:06 Respiratory Rate 22 06/17/18 17:06 Blood Pressure 160/80 06/17/18 17:06 O2 Sat by Pulse Oximetry 92 06/17/18 17:06 Oxygen Delivery Oxygen Delivery Nasal Cannula Medical Decision Making - Lab Data Result diagrams: 06/17/18 16:00 06/17/18 16:00 Lab Results 06/17/18 06/17/18 06/17/18 Range/Units 15:52 16:00 16:00 WBC 14.7 H (4.3-11.1) K/mcL RBC 3.41 L (4.19-5.50) M/mcL Hgb 10.7 L (12.9-16.9) g/dL Hct 33.3 L (37.5-50.1) % MCV 97.7 (83.0-100.0) fL MCH 31.4 (28.0-33.3) pg MCHC 32.1 (31.6-35.5) g/dL RDW 12.4 (11.5-14.5) % Plt Count 193 (140-400) K/mcL MPV 9.6 (9.4-12.4) fL Immature Gran % 0.7 (0-4) % Seg Neutrophils % 89.5 % Lymphocytes % 4.0 % Monocytes % 5.6 % Eosinophils % 0.1 % Basophils % 0.1 % Neutrophils # 13.2 H (1.6-8.9) K/mcL Lymphocytes # 0.6 (0.6-4.6) K/mcL Monocytes # 0.8 (0.0-1.3) K/mcL Eosinophils # 0.0 (0.0-0.6) K/mcL Basophils # 0.0 (0.0-0.2) K/mcL Sodium (136-145) mEq/L Potassium (3.5-5.1) mEq/L Chloride (98-107) mEq/L Carbon Dioxide (23-29) mEq/L BUN (8-23) mg/dL Creatinine (0.70-1.30) mg/dL Est GFR ( Amer) (> 60) Est GFR (Non-Af Amer) (> 60) BUN/Creatinine Ratio (6-26) Glucose (70-105) mg/dL Calculated Osmolality (280-300) Lactic Acid 1.1 (0.5-2.2) mmol/L Calcium (8.6-10.3) mg/dL B-Natriuretic Peptide (Less than 100) pg/mL Urine Color Yellow (Yellow) Urine Clarity Turbid A (Clear) Urine pH 5.0 (5.0-8.0) pH Units Ur Specific [place] 1.022 (1.010-1.025) Urine Protein 100 H (Neg-Trace) mg/dL Urine Glucose (UA) 250 H (Normal) mg/dL Urine Ketones Negative (Negative) mg/dL Urine Blood Moderate H (Negative) Urine Nitrite Negative (Negative) Urine Bilirubin Negative (Negative) Urine Urobilinogen Normal (Normal) mg/dL Ur Leukocyte Esterase Large H (Negative) Urine Microscopic RBC 0-3 (0-3) per hpf Urine Microscopic WBC TNTC H (0-3) per hpf Ur Squamous Epith Cells Many H (None-Few) per lpf Urine Bacteria Many H (None-Few) per hpf Hyaline Casts None Seen (None-Few) per lpf Ur Culture Indicated? NO. A (NO) 06/17/18 06/17/18 Range/Units 16:00 16:00 WBC (4.3-11.1) K/mcL RBC (4.19-5.50) M/mcL Hgb (12.9-16.9) g/dL Hct (37.5-50.1) % MCV (83.0-100.0) fL MCH (28.0-33.3) pg MCHC (31.6-35.5) g/dL RDW (11.5-14.5) % Plt Count (140-400) K/mcL MPV (9.4-12.4) fL Immature Gran % (0-4) % Seg Neutrophils % % Lymphocytes % % Monocytes % % Eosinophils % % Basophils % % Neutrophils # (1.6-8.9) K/mcL Lymphocytes # (0.6-4.6) K/mcL Monocytes # (0.0-1.3) K/mcL Eosinophils # (0.0-0.6) K/mcL Basophils # (0.0-0.2) K/mcL Sodium 132 L (136-145) mEq/L Potassium 4.8 (3.5-5.1) mEq/L Chloride 96 L (98-107) mEq/L Carbon Dioxide 25 (23-29) mEq/L BUN 48 H (8-23) mg/dL Creatinine 2.10 H (0.70-1.30) mg/dL Est GFR ( Amer) 37 L (> 60) Est GFR (Non-Af Amer) 31 L (> 60) BUN/Creatinine Ratio 23 (6-26) Glucose 376 H (70-105) mg/dL Calculated Osmolality 302 H (280-300) Lactic Acid (0.5-2.2) mmol/L Calcium 8.8 (8.6-10.3) mg/dL B-Natriuretic Peptide 223 H (Less than 100) pg/mL Urine Color (Yellow) Urine Clarity (Clear) Urine pH (5.0-8.0) pH Units Ur Specific [place] (1.010-1.025) Urine Protein (Neg-Trace) mg/dL Urine Glucose (UA) (Normal) mg/dL Urine Ketones (Negative) mg/dL Urine Blood (Negative) Urine Nitrite (Negative) Urine Bilirubin (Negative) Urine Urobilinogen (Normal) mg/dL Ur Leukocyte Esterase (Negative) Urine Microscopic RBC (0-3) per hpf Urine Microscopic WBC (0-3) per hpf Ur Squamous Epith Cells (None-Few) per lpf Urine Bacteria (None-Few) per hpf Hyaline Casts (None-Few) per lpf Ur Culture Indicated? (NO) Attestation Statement - Attestation Attestation: I examined this patient and my medical decision-making was reviewed with the Resident Physician. I agree with the documented findings, disposition and keren atment plan as described except to the extent set forth below. 78 year old male presents to the ED with complaints of cough and Jadyn and initial hypoxia of 81% on RA and does not use supplemental oxygen therapy. Patinet states appaers to have mulifocal pnuemonia and UTI. He has a history of lung cancer and no longer is tachycardiac. There may be a consideration for PE, howveer he cannot recieve a CTA chest and unlikely that this is a massive or submassive PE. We will recommedn VQ scan once admited to medicine for further evlaution and continued management.
--- NOTE | 2018-06-17 18:15 | Internal Med History&Physical ---
Date of Encounter: 06/17/18 Time of Encounter: 18:10 Internal Medicine - H&P: HPI Chief complaint: SOB Admitted From: Home Plans for Post Hospital Care: Home History of present illness: Mr. Carter is a 78 year old male who has history of COPD, lung cancer, hypertension hyperlipidemia, ,DM 2, diabetic neuropathy presenting emergency room for shortness of breath and the productive cough for 1 wk. 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 Her last chemotherapy 1 week ago. He started to feel shortness of breath a week ago, progressively gotten worse, and he also has productive cough with yellow isputum, he had a fever chills over last 2 days. He denies chest pain nausea vomiting. No diarrhea or constipation. In the emergency room, WBC 14.7, he had CT angio which showed bilateral multifocal pneumonia, patient is going to be admitted for pneumonia, last admission was 03/2018 for pneumonia. Past Med Surg Social Fam HX - Past Medical History Medical history: cancer, diabetes, hyperlipidemia, hypertension Additional medical history: lung CA Psychiatric history: no psych history - Past Surgical History Additional surgical history: back sx - Social History Smoking Status: Former smoker Smokeless Tobacco Status: No Alcohol use: none Drug use: none - Family History Mother Hx Family Neuromuscular Disorders: Yes (Parkinsons) Internal Medicine - H&P: Meds Acetaminophen [Tylenol] 650 mg PO BID 10/27/17 [History] Aspirin Enteric Coated [Aspirin EC] 81 mg PO DAILY 10/27/17 [History] Atorvastatin [Lipitor] 40 mg PO HS 10/27/17 [History] Cholecalciferol (D-3) [Vitamin D] 4,000 unit PO DAILY 10/27/17 [History] DULoxetine [Cymbalta] 30 mg PO BID 10/27/17 [History] Gabapentin [Neurontin] 600 mg PO QID 10/27/17 [History] Multivitamin [One Daily Essential] 1 tab PO DAILY 10/27/17 [History] Tramadol HCl [Ultram] 50 mg PO BID PRN 10/27/17 [History] glipiZIDE [Glucotrol] 10 mg PO QPM 10/27/17 [History] Cyanocobalamin (Vitamin B-12) [Vitamin B-12] 1,000 mcg PO QTUTHSA 12/21/17 [History] Lidocaine/Prilocaine [Emla] 1 appl TP DAILY #30 gm 01/02/18 [Rx] Promethazine [Phenergan] 25 mg PO Q6HR PRN #30 tablet 01/02/18 [Rx] OxyCODONE Oral Soln [OxyCODONE ORAL SOLN] 5 mg PO Q4-6H PRN 7 Days #210 mls 02/13/18 [Rx] Magic Mouthwash [Magic Mouthwash BLM] 5 ml PO Q2H PRN #480 ml 03/17/18 [Rx] amLODIPine [Norvasc] 5 mg PO DAILY PRN 04/14/18 [History] Bisacodyl [Dulcolax] 5 mg PO DAILY PRN #30 tablet 04/28/18 [Rx] GuaiFENesin/Dextromethorphan [Robitussin/Dm] 5 ml PO Q6HR PRN #240 ml 04/28/18 [Rx] Sucralfate [Carafate] 1 gm PO QIDAC #1 oral.susp 04/28/18 [Rx] Budesonide/Formoterol 160/4.5 [Symbicort 160/4.5] 2 puff IH BID #1 hfa.aer.ad 06/09/18 [Rx] Cetirizine HCl [Zyrtec] 10 mg PO DAILY #90 capsule 06/09/18 [Rx] Allergy/AdvReac Type Severity Reaction Status Date / Time Cyclobenzaprine Allergy See Verified 06/09/18 14:16 Comments methocarbamol Allergy See Verified 06/09/18 14:16 Comments All Systems PM: A 10-system review of systems was performed and is negative for pertinent findings except as documented above in the HPI. - Constitutional Vitals: Temp Pulse Resp BP Pulse Ox 98.5 F 95 22 160/80 92 06/17/18 14:37 06/17/18 17:06 06/17/18 17:06 06/17/18 17:06 06/17/18 17:06 General appearance: Present: A&O X 3, pleasant Exam: CONSTITUTIONAL: Patient appears as an age appropriate male well developed, in no acute distress. EYES Clear sclerae, bilateral pupils are equal, reactive to light and accommodation. Extraocular movements are intact RESPIRATORY: No accessory muscle use, bilateral reduced breath sounds, bilateral crackles/rales. CARDIOVASCULAR: Regular heart rate, normal S1 and S2, no murmurs GASTROINTESTINAL: bowel sounds present, soft, no tenderness. No hepatosplenomegaly. No bilateral CVA tenderness MUSCULOSKELETAL: Joints in normal range of motion, no clubbing, no edema, no cyanosis. Bilateral peripheral pulses 2+ LYMPHATIC no lymphadenopathy in neck, groin and axilla bilaterally, no thyromegaly. NEUROLOGIC: CN II to XII are grossly intact, no focal neurological deficit. Deep tendon reflexes 2+ bilaterally. Normal light touch sensation to upper and lower extremity PSYCHIATRIC: Oriented x3, with good insight, mood is euthymic. No hallucinations or delusions. SKIN: Skin warm and dry, no rashes, no open wound. Internal Med - H&P Results - Labs CBC & Chem 7: 06/17/18 16:00 06/17/18 16:00 Labs: Short CBC 06/17/18 Range/Units 16:00 WBC 14.7 H (4.3-11.1) K/mcL Hgb 10.7 L (12.9-16.9) g/dL Hct 33.3 L (37.5-50.1) % Plt Count 193 (140-400) K/mcL Neutrophils # 13.2 H (1.6-8.9) K/mcL BMP 06/17/18 16:00 Sodium 132 L Potassium 4.8 Chloride 96 L Carbon Dioxide 25 BUN 48 H Creatinine 2.10 H Glucose 376 H Calcium 8.8 Urine 06/17/18 Range/Units 16:00 Urine Color Yellow (Yellow) Urine Clarity Turbid A (Clear) Urine pH 5.0 (5.0-8.0) pH Units Ur Specific [place] 1.022 (1.010-1.025) Urine Protein 100 H (Neg-Trace) mg/dL Urine Glucose (UA) 250 H (Normal) mg/dL - Impressions ITS Impressions Chest CT 06/17/18 15:29 IMPRESSION: Multifocal heterogeneous and nodular infiltrate has developed as compared to the prior examination, greatest within the right lower lobe. Findings likely reflect multifocal pneumonia. Neoplastic infiltrate is not excluded though is less favored given the short-term interval change. Small right pleural effusion has also developed. Follow-up to resolution is recommended. D/ / Thomas Mcgregor MD / Thomas Mcgregor MD Interpreting Provider: Thomas Mcgregor MD - Assessment and plan (1) Sepsis Current Visit: Yes Status: Acute Assessment and plan: with HR >100, WBC 14.7 from pneumonia (2) HCAP (healthcare-associated pneumonia) Current Visit: Yes Status: Acute Assessment and plan: Patient presented with shortness of breath productive cough fever, WBC was elevated, CT scan shows multifocal pneumonia, last admission was 03/2018. we will treat as healthcare associated pneumonia due to recent admission chemotherapy vancomycin and cefepime and add levofloxacin (3) COPD (chronic obstructive pulmonary disease) Current Visit: Yes Status: Acute Assessment and plan: COPD acute exacerbation from pneumonia, quitted smoking in 1995, not on home O2 will add steroids and Neb Qualifiers: COPD type: COPD with acute exacerbation Qualified Code(s): J44.1 - Chronic obstructive pulmonary disease with (acute) exacerbation (4) Acute respiratory failure with hypoxia Current Visit: Yes Status: Acute Assessment and plan: Possible gram-negative and MRSA bacterial pneumonia, O2 sat 81% on RA, RR 24 from pneumonia We will check a strep pneumo antigen, Legionella antigen, sputum culture Continue vancomycin cefepime and the levofloxacin (5) Lung cancer Current Visit: Yes Status: Acute Assessment and plan: Squamous cell lung cancer, stage III, ongoing chemotherapy, last chemo 1 week ago Qualifiers: Laterality: unspecified laterality Lung location: unspecified part of lung Qualified Code(s): C34.90 - Malignant neoplasm of unspecified part of unspecified bronchus or lung (6) UTI (urinary tract infection) Current Visit: Yes Status: Acute Assessment and plan: UTI covered by cefepime Qualifiers: Urinary tract infection type: site unspecified Hematuria presence: without hematuria Qualified Code(s): N39.0 - Urinary tract infection, site not specified (7) CKD (chronic kidney disease) Current Visit: Yes Status: Chronic Assessment and plan: CK D stages 3, creatinine is alittle bit higher from baseline Qualifiers: Chronic kidney disease stage: stage 3 (moderate) Qualified Code(s): N18.3 - Chronic kidney disease, stage 3 (moderate) (8) DMII (diabetes mellitus, type 2) Current Visit: Yes Status: Chronic Assessment and plan: DM type 2, not insulin-dependent. Currently glucose is not controlled, running 400 will start insulin sliding scale Qualifiers: Diabetes mellitus usp insulin use: without roasterman use Diabetes mellitus complication status: with kidney complications Chronic kidney disease stage: stage 3 (moderate) Qualified Code(s): E11.22 - Type 2 diabetes mellitus with diabetic chronic kidney disease; N18.3 - Chronic kidney disease, stage 3 (moderate) (9) Neurogenic bladder Current Visit: Yes Status: Chronic Assessment and plan: self cath at home - Time Spent With Patient Total time spent is greater than 50% in coordination of care (as documented) at patient's floor/unit and/or counseling patient: Greater than 35 minutes
[2018-06-17] MEDS ORDERED: Naloxone 0.4 MG/ML INJ IVP PRN (18:24)
[2018-06-17] MEDS ORDERED: *HR* Dextrose 50 % in Water (Syg) 50 ML SYRINGE IVP PRN (18:35)
[2018-06-17] MEDS ORDERED: D5% in Water 1,000 ML IVC PRN (18:35)
[2018-06-17] MEDS ORDERED: Dextrose Gel 15 GM/37.5 ML TUBE PO PRN ×2 (18:35)
[2018-06-17] MEDS ORDERED: *HR* OxyCODONE Oral Soln 5 MG/5 ML UD.LIQ PO PRN (18:36)
[2018-06-17] MEDS ORDERED: Vancomycin (wt based) 1,000 MG VIAL IVPB SCH (19:00)
[2018-06-17] MEDS: Ipratropium/Albuterol Neb 3 ML IH SCH ×2 (20:06→23:27)
[2018-06-17] MEDS: Budesonide/Formoterol 160/4.5 1 PUFF INH IH SCH (20:06)
[2018-06-17] MEDS: Insulin LISPRO 300 UNITS/3 ML VIAL SQ SCH ×2 (20:44→20:47)
[2018-06-17] MEDS: Insulin DETEMIR 100 UNIT/ML X5UNITS SQ SCH (20:47)
[2018-06-17] MEDS: Levofloxacin 750 MG/150 ML 750 MG/150 ML BAG IVPB SCH (20:59)
[2018-06-17] MEDS: Multivit/Ca/Min/Fe/FA 1 TAB TABLET PO SCH (21:00)
[2018-06-17] MEDS: Acetaminophen 325 MG TABLET PO SCH (21:02)
[2018-06-17] MEDS ORDERED: Vancomycin 500 MG in 0.9 % Sodium Chloride Mini Bag 100 ML IVPB ONE (21:21)
[2018-06-17] MEDS: Gabapentin 300 MG CAPSULE PO SCH (22:17)
[2018-06-18] MEDS: methylPREDNISolone 125 MG/2 ML VIAL IVP SCH ×3 (00:53→17:21)
[2018-06-18] MEDS: *HR* Heparin 5,000 UNIT/ML VIAL SQ SCH ×3 (00:53→17:22)
[2018-06-18] MEDS: Ipratropium/Albuterol Neb 3 ML IH SCH ×6 (03:18→23:34)
[2018-06-18 06:32] LABS: Basophils % 0.1 %; Hematocrit 33.3 % (37.5-50.1); Hemoglobin 10.4 g/dL (12.9-16.9); Immature Granulocytes % 0.5 % (0-4); Lymphocytes # 0.2 K/mcL (0.6-4.6); Mean Corpuscular HGB Conc 31.2 g/dL (31.6-35.5); Mean Corpuscular Volume 99.4 fL (83.0-100.0); Mean Platelet Volume 9.8 fL (9.4-12.4); Monocytes # 0.4 K/mcL (0.0-1.3); Monocytes % 1.7 %; Platelet Count 190 K/mcL (140-400); Red Blood Count 3.35 M/mcL (4.19-5.50); Red Cell Distribution Width 12.4 % (11.5-14.5); Segmented Neutrophils % 96.7 %
[2018-06-18 07:10] LABS: Platelet Estimate Slight Decrease (Normal)
[2018-06-18] MEDS: Budesonide/Formoterol 160/4.5 1 PUFF INH IH SCH ×2 (07:16→20:10)
[2018-06-18 07:34] LABS: Estimated Average Glucose 214 mg/dl; Hemoglobin A1C 9.1 %
[2018-06-18] MEDS ORDERED: Aminoglycoside Consult 1 EACH MC ONE (08:35)
[2018-06-18] MEDS: Acetaminophen 325 MG TABLET PO SCH ×2 (10:03→21:08)
[2018-06-18] MEDS: Aspirin Enteric Coated 81 MG Tablet PO SCH (10:03)
[2018-06-18] MEDS: Multivit/Ca/Min/Fe/FA 1 TAB TABLET PO SCH (10:03)
[2018-06-18] MEDS: Loratadine 10 MG TABLET PO SCH (10:03)
[2018-06-18] MEDS: Gabapentin 300 MG CAPSULE PO SCH ×4 (10:04→21:08)
[2018-06-18] MEDS: Insulin LISPRO 300 UNITS/3 ML VIAL SQ SCH ×4 (10:32→21:12)
--- NOTE | 2018-06-18 15:09 | Internal Med Progress Note ---
Hospitalist Progress Note - Encounter Date of Encounter: 06/18/18 Time of Encounter: 15:07 - Subjective Interval History: Mr. Carter is a 78 year old male who has history of COPD, lung cancer, hypertension hyperlipidemia, ,DM 2, diabetic neuropathy presenting emergency room for shortness of breath and the productive cough for 1 wk. 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 Her last chemotherapy 1 week ago. He started to feel shortness of breath a week ago, progressively gotten worse, and he also has productive cough with yellow isputum, he had a fever chills over last 2 days. He denies chest pain nausea vomiting. No diarrhea or constipation. In the emergency room, WBC 14.7, he had CT angio which showed bilateral multifocal pneumonia, patient is going to be admitted for pneumonia, last admission was 03/2018 for pneumonia. Patient is doing better, less wheezing. He still any shortness of breasts on mild exertion, on and off spasmatic cough. His MRSA swab was negative, vancomycin DC'd - Exam Vitals: Temp Pulse Resp BP Pulse Ox 97.9 F 93 16 138/76 93 06/18/18 11:51 06/18/18 11:51 06/18/18 11:51 06/18/18 11:51 06/18/18 11:51 Exam: CONSTITUTIONAL: Patient appears as an age appropriate male well developed, in no acute distress. EYES Clear sclerae, bilateral pupils are equal, reactive to light and accommodation. Extraocular movements are intact RESPIRATORY: No accessory muscle use, bilateral reduced breath sounds, bilateral crackles/rales. CARDIOVASCULAR: Regular heart rate, normal S1 and S2, no murmurs GASTROINTESTINAL: bowel sounds present, soft, no tenderness. No hepatosplenomegaly. No bilateral CVA tenderness MUSCULOSKELETAL: Joints in normal range of motion, no clubbing, no edema, no cyanosis. Bilateral peripheral pulses 2+ LYMPHATIC no lymphadenopathy in neck, groin and axilla bilaterally, no thyromegaly. NEUROLOGIC: CN II to XII are grossly intact, no focal neurological deficit. Deep tendon reflexes 2+ bilaterally. Normal light touch sensation to upper and lower extremity PSYCHIATRIC: Oriented x3, with good insight, mood is euthymic. No hallucinations or delusions. SKIN: Skin warm and dry, no rashes, no open wound. - Assessment and Plan (1) Sepsis Current Visit: Yes Status: Acute Assessment and Plan: from mmultifocal pneumonnia with HR >100, WBC 14.7 POA (2) HCAP (healthcare-associated pneumonia) Current Visit: Yes Status: Acute Assessment and Plan: possible gram negative bacterial pneumonia. Patient presented with shortness of breath productive cough fever, WBC was elevated, CT scan shows multifocal pneumonia, last admission was 03/2018. we will treat as healthcare associated pneumonia due to recent admission chemotherapy MRSA sceen is negaitve , vancomycin is d/carlos. continue cefepime and levoflo xacin (3) COPD (chronic obstructive pulmonary disease) Current Visit: Yes Status: Acute Assessment and Plan: COPD acute exacerbation from pneumonia, quitted smoking in 1995, not on home O2 will add steroids and Neb (4) Acute respiratory failure with hypoxia Current Visit: Yes Status: Acute Assessment and Plan: Possible gram-negative bacterial pneumonia, O2 sat 81% on RA, RR 24 from pneumonia We will check a strep pneumo antigen, Legionella antigen, sputum culture Continue cefepime and the levofloxacin (5) Lung cancer Current Visit: Yes Status: Acute Assessment and Plan: Squamous cell lung cancer, stage III, ongoing chemotherapy, last chemo 1 week ago (6) UTI (urinary tract infection) Current Visit: Yes Status: Acute Assessment and Plan: UTI covered by cefepime (7) CKD (chronic kidney disease) Current Visit: Yes Status: Chronic Assessment and Plan: CK D stages 3, creatinine is a little bit higher from baseline (8) DMII (diabetes mellitus, type 2) Current Visit: Yes Status: Chronic Assessment and Plan: DM type 2, not insulin-dependent. Uncontrolled, A1C 9.1%, will add meal insulin 8 unit TID (9) Neurogenic bladder Current Visit: Yes Status: Chronic Assessment and Plan: self cath - Time Spent with Patient Total time spent is greater than 50% in coordination of care (as documented) at patient's floor/unit and/or counseling patient: 25 - 35 minutes Internal Medicine: Result - Labs CBC & Chem 7: 06/18/18 06:16 06/17/18 16:00 Labs: Short CBC 06/17/18 06/18/18 Range/Units 16:00 06:16 WBC 14.7 H 22.7 H D (4.3-11.1) K/mcL Hgb 10.7 L 10.4 L (12.9-16.9) g/dL Hct 33.3 L 33.3 L (37.5-50.1) % Plt Count 193 190 (140-400) K/mcL Neutrophils # 13.2 H 22.0 H (1.6-8.9) K/mcL BMP 06/17/18 16:00 Sodium 132 L Potassium 4.8 Chloride 96 L Carbon Dioxide 25 BUN 48 H Creatinine 2.10 H Glucose 376 H Calcium 8.8 Urine 06/17/18 Range/Units 16:00 Urine Color Yellow (Yellow) Urine Clarity Turbid A (Clear) Urine pH 5.0 (5.0-8.0) pH Units Ur Specific [place] 1.022 (1.010-1.025) Urine Protein 100 H (Neg-Trace) mg/dL Urine Glucose (UA) 250 H (Normal) mg/dL - Impressions Impressions Chest CT 06/17/18 15:29 IMPRESSION: Multifocal heterogeneous and nodular infiltrate has developed as compared to the prior examination, greatest within the right lower lobe. Findings likely reflect multifocal pneumonia. Neoplastic infiltrate is not excluded though is less favored given the short-term interval change. Small right pleural effusion has also developed. Follow-up to resolution is recommended. D/ / Thomas Mcgregor MD / Thomas Mcgregor MD Interpreting Provider: Thomas Mcgregor MD Consult Discharge Plan - Plan Referrals: Parth Fan MD [Partnered Physician] - (3) COPD (chronic obstructive pulmonary disease) Qualifiers: COPD type: COPD with acute exacerbation Qualified Code(s): J44.1 - Chronic obstructive pulmonary disease with (acute) exacerbation (5) Lung cancer Qualifiers: Laterality: unspecified laterality Lung location: unspecified part of lung Qualified Code(s): C34.90 - Malignant neoplasm of unspecified part of unspecified bronchus or lung (6) UTI (urinary tract infection) Qualifiers: Urinary tract infection type: site unspecified Hematuria presence: without hematuria Qualified Code(s): N39.0 - Urinary tract infection, site not specified (7) CKD (chronic kidney disease) Qualifiers: Chronic kidney disease stage: stage 3 (moderate) Qualified Code(s): N18.3 - Chronic kidney disease, stage 3 (moderate) (8) DMII (diabetes mellitus, type 2) Qualifiers: Diabetes mellitus correction insulin use: without correction use Diabetes mellitus complication status: with kidney complications Chronic kidney disease stage: stage 3 (moderate) Qualified Code(s): E11.22 - Type 2 diabetes mellitus with diabetic chronic kidney disease; N18.3 - Chronic kidney disease, stage 3 (moderate)
[2018-06-18] MEDS ORDERED: Insulin LISPRO 300 UNITS/3 ML VIAL SQ SCH (16:30)
[2018-06-18] MEDS: Magic Mouthwash 10 ML UD Cup PO PRN (17:22)
[2018-06-18] MEDS: Cefepime HCl 2,000 MG in 0.9 % Sodium Chloride Mini Bag 100 ML IVPB SCH (17:22)
[2018-06-18] MEDS: Insulin DETEMIR 100 UNIT/ML X5UNITS SQ SCH (21:11)
[2018-06-19] MEDS: *HR* Heparin 5,000 UNIT/ML VIAL SQ SCH ×3 (01:04→17:03)
[2018-06-19] MEDS: methylPREDNISolone 125 MG/2 ML VIAL IVP SCH ×3 (01:04→17:04)
[2018-06-19] MEDS: Ipratropium/Albuterol Neb 3 ML IH SCH ×6 (03:16→23:28)
[2018-06-19] MEDS: Cefepime HCl 2,000 MG in 0.9 % Sodium Chloride Mini Bag 100 ML IVPB SCH ×2 (05:37→17:46)
[2018-06-19 05:38] LABS: Basophils % 0.1 %; Hemoglobin 9.7 g/dL (12.9-16.9); Immature Granulocytes % 0.6 % (0-4); Lymphocytes # 0.2 K/mcL (0.6-4.6); Lymphocytes % 1.2 %; Mean Corpuscular HGB Conc 31.3 g/dL (31.6-35.5); Mean Corpuscular Hemoglobin 31.2 pg (28.0-33.3); Mean Corpuscular Volume 99.7 fL (83.0-100.0); Mean Platelet Volume 9.8 fL (9.4-12.4); Monocytes # 0.2 K/mcL (0.0-1.3); Monocytes % 1.2 %; Neutrophils # 16.3 K/mcL (1.6-8.9); Platelet Count 192 K/mcL (140-400); Red Blood Count 3.11 M/mcL (4.19-5.50); Red Cell Distribution Width 12.6 % (11.5-14.5); Segmented Neutrophils % 96.9 %
[2018-06-19 05:59] LABS: Potassium 4.5 mEq/L (3.5-5.1)
[2018-06-19] MEDS: Budesonide/Formoterol 160/4.5 1 PUFF INH IH SCH ×2 (07:32→20:08)
[2018-06-19] MEDS: Multivit/Ca/Min/Fe/FA 1 TAB TABLET PO SCH (08:44)
[2018-06-19] MEDS: Acetaminophen 325 MG TABLET PO SCH ×2 (08:44→20:45)
[2018-06-19] MEDS: Aspirin Enteric Coated 81 MG Tablet PO SCH (08:44)
[2018-06-19] MEDS: Loratadine 10 MG TABLET PO SCH (08:44)
[2018-06-19] MEDS: Gabapentin 300 MG CAPSULE PO SCH ×4 (08:45→20:45)
[2018-06-19] MEDS: Insulin LISPRO 300 UNITS/3 ML VIAL SQ SCH ×7 (08:45→20:54)
--- NOTE | 2018-06-19 13:34 | Internal Med Progress Note ---
Hospitalist Progress Note - Encounter Date of Encounter: 06/19/18 Time of Encounter: 13:34 - Subjective Interval History: Pt reports SOB but improved since admission. He denies chest pain. He denies fever or chills. He denies N/V or diarrhea. - Exam Vitals: Temp Pulse Resp BP Pulse Ox 97.8 F 94 16 123/72 97 06/19/18 11:33 06/19/18 11:33 06/19/18 11:33 06/19/18 11:33 06/19/18 11:33 Exam: CONSTITUTIONAL: Patient appears as an age appropriate male well developed, in no acute distress. EYES Clear sclerae, bilateral pupils are equal, reactive to light and accom modation. Extraocular movements are intact RESPIRATORY: No accessory muscle use, bilateral reduced breath sounds, bilateral crackles/rales. CARDIOVASCULAR: Regular heart rate, normal S1 and S2, no murmurs GASTROINTESTINAL: bowel sounds present, soft, no tenderness. No hepatosplenomegaly. No bilateral CVA tenderness MUSCULOSKELETAL: Joints in normal range of motion, no clubbing, no edema, no cyanosis. Bilateral peripheral pulses 2+ LYMPHATIC no lymphadenopathy in neck, groin and axilla bilaterally, no thyromegaly. NEUROLOGIC: CN II to XII are grossly intact, no focal neurological deficit. Deep tendon reflexes 2+ bilaterally. Normal light touch sensation to upper and lower extremity PSYCHIATRIC: Oriented x3, with good insight, mood is euthymic. No hallucinations or delusions. SKIN: Skin warm and dry, no rashes, no open wound. - Assessment and Plan (1) Sepsis Current Visit: Yes Status: Acute Assessment and Plan: Pt met due to HR > 100 and WBC 14.7 on admission. He was initially placed on Vancomycin, Levaquin, and Cefepime. Vancomycin discontinued due to neg MRSA nasal swab. Will plan to transition to PO antibiotic at discharge. (2) HCAP (healthcare-associated pneumonia) Current Visit: Yes Status: Acute Assessment and Plan: As above. Strep urine and legionella negative. Will check Mycoplasma IgG and IgM (3) Acute respiratory failure with hypoxia Current Visit: Yes Status: Acute Assessment and Plan: Possible gram-negative bacterial pneumonia. On admission, O2 sat 81% on RA, RR 24 from pneumonia Strep pneumonia antigen and Legionella antigen negtaive. Sputum culture ordered but sample not yet collected. Continue cefepime and the levofloxacin (4) COPD (chronic obstructive pulmonary disease) Current Visit: Yes Status: Acute Assessment and Plan: COPD acute exacerbation from pneumonia. Former smoker, quit smoking in 1995. Pt states he is not on home O2 Will continue on scheduled and PRN nebs and steroids. Also on Budesonide (5) Lung cancer Current Visit: Yes Status: Acute Assessment and Plan: Squamous cell lung cancer stage III. Ongoing chemotherapy, last chemo approx 1 week ago. (6) Chronic kidney disease, stage 3 Current Visit: Yes Status: Acute Assessment and Plan: CK D stages 3, creatinine is a little bit higher from baseline. (7) Neurogenic bladder Current Visit: Yes Status: Chronic Assessment and Plan: self caths (8) UTI (urinary tract infection) Current Visit: Yes Status: Acute Assessment and Plan: on Cefepime. DVT Prophylaxis: Heparin - Summary of Assessment and Plan Summary of Assessment and Plan: History of present illness: Dr. Smith Mr. Carter is a 78 year old male who has history of COPD, lung cancer, hypertension hyperlipidemia, ,DM 2, diabetic neuropathy presenting emergency room for shortness of breath and the productive cough for 1 wk. 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 Her last chemotherapy 1 week ago. He started to feel shortness of breath a week ago, progressively gotten worse, and he also has productive cough with yellow isputum, he had a fever chills over last 2 days. He denies chest pain nausea vomiting. No diarrhea or constipation. In the emergency room, WBC 14.7, he had CT angio which showed bilateral multifocal pneumonia, patient is going to be admitted for pneumonia, last admission was 03/2018 for pneumonia. - Time Spent with Patient Total time spent is greater than 50% in coordination of care (as documented) at patient's floor/unit and/or counseling patient: less than 15 minutes Plan of Care Discussed with: patient Internal Medicine: Result - Labs CBC & Chem 7: 06/19/18 05:17 06/19/18 05:17 Labs: Short CBC 06/19/18 Range/Units 05:17 WBC 16.8 H (4.3-11.1) K/mcL Hgb 9.7 L (12.9-16.9) g/dL Hct 31.0 L (37.5-50.1) % Plt Count 192 (140-400) K/mcL Neutrophils # 16.3 H (1.6-8.9) K/mcL BMP 06/19/18 05:17 Sodium 133 L Potassium 4.5 Chloride 100 Carbon Dioxide 24 BUN 60 H Creatinine 2.23 H Glucose 399 H Calcium 9.0 Consult Discharge Plan - Plan Referrals: Jose Manuel Mc MD [Partnered Physician] - 06/23/18 1:00 pm (Please follow up as schedule...) (1) Sepsis Qualifiers: Sepsis type: sepsis due to unspecified organism Qualified Code(s): A41.9 - Sepsis, unspecified organism (4) COPD (chronic obstructive pulmonary disease) Qualifiers: COPD type: COPD with acute exacerbation Qualified Code(s): J44.1 - Chronic obstructive pulmonary disease with (acute) exacerbation (5) Lung cancer Qualifiers: Laterality: unspecified laterality Lung location: unspecified part of lung Qualified Code(s): C34.90 - Malignant neoplasm of unspecified part of unspecified bronchus or lung (8) UTI (urinary tract infection) Qualifiers: Urinary tract infection type: site unspecified Hematuria presence: without hematuria Qualified Code(s): N39.0 - Urinary tract infection, site not specified
[2018-06-19] MEDS: Levofloxacin 750 MG/150 ML 750 MG/150 ML BAG IVPB SCH (20:35)
[2018-06-19] MEDS: Insulin DETEMIR 100 UNIT/ML X5UNITS SQ SCH (20:54)
[2018-06-19] MEDS ORDERED: Insulin DETEMIR 100 UNIT/ML X5UNITS SQ SCH (21:00)
[2018-06-20] MEDS: *HR* Heparin 5,000 UNIT/ML VIAL SQ SCH ×3 (00:38→16:23)
[2018-06-20] MEDS: methylPREDNISolone 125 MG/2 ML VIAL IVP SCH ×2 (00:39→08:07)
[2018-06-20] MEDS: Ipratropium/Albuterol Neb 3 ML IH SCH ×6 (04:19→23:32)
[2018-06-20] MEDS: Cefepime HCl 2,000 MG in 0.9 % Sodium Chloride Mini Bag 100 ML IVPB SCH ×2 (06:18→17:35)
[2018-06-20] MEDS: Budesonide/Formoterol 160/4.5 1 PUFF INH IH SCH ×2 (07:18→19:51)
[2018-06-20] MEDS: Acetaminophen 325 MG TABLET PO SCH ×2 (08:06→20:51)
[2018-06-20] MEDS: Gabapentin 300 MG CAPSULE PO SCH ×4 (08:06→21:15)
[2018-06-20] MEDS: Loratadine 10 MG TABLET PO SCH (08:07)
[2018-06-20] MEDS: Multivit/Ca/Min/Fe/FA 1 TAB TABLET PO SCH (08:07)
[2018-06-20] MEDS: Aspirin Enteric Coated 81 MG Tablet PO SCH (08:07)
[2018-06-20] MEDS: Insulin LISPRO 300 UNITS/3 ML VIAL SQ SCH ×7 (08:08→21:17)
[2018-06-20] MEDS: Insulin DETEMIR 100 UNIT/ML X5UNITS SQ SCH ×2 (10:40→21:02)
--- NOTE | 2018-06-20 15:42 | Internal Med Progress Note ---
Hospitalist Progress Note - Encounter Date of Encounter: 06/20/18 Time of Encounter: 15:30 - Subjective Interval History: Pt reports SOB continues to improve since admission. He denies chest pain. He denies fever or chills. He denies N/V, constipation, or diarrhea. - Exam Vitals: Temp Pulse Resp BP Pulse Ox 98.3 F 107 18 126/62 94 06/20/18 10:29 06/20/18 10:29 06/20/18 10:06/20/18 10:06/20/18 10:53 Exam: CONSTITUTIONAL: Patient appears as an age appropriate male well developed, in no acute distress. EYES Clear sclerae, bilateral pupils are equal, reactive to light and accommodation. Extraocular movements are intact RESPIRATORY: No accessory muscle use, bilateral reduced breath sounds, bilateral crackles/rales. CARDIOVASCULAR: Regular heart rate, normal S1 and S2, no murmurs GASTROINTESTINAL: bowel sounds present, soft, no tenderness. No hepatos plenomegaly. No bilateral CVA tenderness MUSCULOSKELETAL: Joints in normal range of motion, no clubbing, no edema, no cyanosis. Bilateral peripheral pulses 2+ LYMPHATIC no lymphadenopathy in neck, groin and axilla bilaterally, no thyromegaly. NEUROLOGIC: CN II to XII are grossly intact, no focal neurological deficit. Deep tendon reflexes 2+ bilaterally. Normal light touch sensation to upper and lower extremity PSYCHIATRIC: Oriented x3, with good insight, mood is euthymic. No hallucinations or delusions. SKIN: Skin warm and dry, no rashes, no open wound. - Assessment and Plan (1) Sepsis Current Visit: Yes Status: Acute Assessment and Plan: Pt met due to HR > 100 and WBC 14.7 on admission. He was initially placed on Vancomycin, Levaquin, and Cefepime. Vancomycin discontinued due to neg MRSA nasal swab. Will plan to transition to PO antibiotic at discharge. (2) HCAP (healthcare-associated pneumonia) Current Visit: Yes Status: Acute Assessment and Plan: As above. checking Mycoplasma IgG and IgM (3) Acute respiratory failure with hypoxia Current Visit: Yes Status: Acute Assessment and Plan: Possible gram-negative bacterial pneumonia. On admission, O2 sat 81% on RA, RR 24 from pneumonia Strep pneumonia antigen and Legionella antigen negtaive. Sputum culture ordered but sample not yet collected. Continue cefepime and the levofloxacin. Will check home oxygen evaluation at discharge. (4) COPD (chronic obstructive pulmonary disease) Current Visit: Yes Status: Acute Assessment and Plan: COPD acute exacerbation from pneumonia. Former smoker, quit smoking in 1995. Pt states he is not on home O2 Will continue on scheduled and PRN nebs and steroids. Also on Budesonide (5) Lung cancer Current Visit: Yes Status: Acute Assessment and Plan: Squamous cell lung cancer stage III. Ongoing chemotherapy, last chemo approx 1 week ago. Follow ip out pt with oncologist. (6) Chronic kidney disease, stage 3 Current Visit: Yes Status: Acute Assessment and Plan: CK D stages 3, creatinine is a little bit higher from baseline. (7) Neurogenic bladder Current Visit: Yes Status: Chronic Assessment and Plan: self caths (8) UTI (urinary tract infection) Current Visit: Yes Status: Acute Assessment and Plan: on Cefepime. DVT Prophylaxis: Heparin - Summary of Assessment and Plan Summary of Assessment and Plan: History of present illness: Dr. Smith Mr. Carter is a 78 year old male who has history of COPD, lung cancer, hypertension hyperlipidemia, ,DM 2, diabetic neuropathy presenting emergency room for shortness of breath and the productive cough for 1 wk. 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 Her last chemotherapy 1 week ago. He started to feel shortness of breath a week ago, progressively gotten worse, and he also has productive cough with yellow isputum, he had a fever chills over last 2 days. He denies chest pain nausea vomiting. No diarrhea or constipation. In the emergency room, WBC 14.7, he had CT angio which showed bilateral multifocal pneumonia, patient is going to be admitted for pneumonia, last admission was 03/2018 for pneumonia. - Time Spent with Patient Total time spent is greater than 50% in coordination of care (as documented) at patient's floor/unit and/or counseling patient: less than 15 minutes Plan of Care Discussed with: patient Internal Medicine: Result - Labs CBC & Chem 7: 06/19/18 05:17 06/19/18 05:17 - Impressions Impressions Chest X-Ray 06/19/18 13:35 IMPRESSION: Moderate perihilar and right basilar airspace opacification that is new from prior exam. Pattern may represent asymmetric edema or underlying pneumonitis. D/ / Salvador Zapien MD / Salvador Zapien MD Interpreting Provider: Salvador Zapien MD Consult Discharge Plan - Plan Referrals: Jose Manuel Mc MD [Partnered Physician] - 06/23/18 1:00 pm (Please follow up as schedule...) (1) Sepsis Qualifiers: Sepsis type: sepsis due to unspecified organism Qualified Code(s): A41.9 - Sepsis, unspecified organism (4) COPD (chronic obstructive pulmonary disease) Qualifiers: COPD type: COPD with acute exacerbation Qualified Code(s): J44.1 - Chronic obstructive pulmonary disease with (acute) exacerbation (5) Lung cancer Qualifiers: Laterality: unspecified laterality Lung location: unspecified part of lung Qualified Code(s): C34.90 - Malignant neoplasm of unspecified part of unspecified bronchus or lung (8) UTI (urinary tract infection) Qualifiers: Urinary tract infection type: site unspecified Hematuria presence: without hematuria Qualified Code(s): N39.0 - Urinary tract infection, site not specified
[2018-06-20] MEDS: MethylPREDNISolone 40 MG/ML VIAL IVP SCH (16:23)
[2018-06-20 16:26] LABS: Basophils % 0.1 %; Hematocrit 28.6 % (37.5-50.1); Hemoglobin 9.1 g/dL (12.9-16.9); Immature Granulocytes % 0.6 % (0-4); Lymphocytes # 0.2 K/mcL (0.6-4.6); Lymphocytes % 1.8 %; Mean Corpuscular HGB Conc 31.8 g/dL (31.6-35.5); Mean Corpuscular Hemoglobin 31.2 pg (28.0-33.3); Mean Corpuscular Volume 97.9 fL (83.0-100.0); Monocytes # 0.4 K/mcL (0.0-1.3); Monocytes % 3.5 %; Neutrophils # 11.3 K/mcL (1.6-8.9); Platelet Count 183 K/mcL (140-400); Red Blood Count 2.92 M/mcL (4.19-5.50); Red Cell Distribution Width 12.5 % (11.5-14.5)
[2018-06-20 16:43] LABS: Calcium 8.5 mg/dL (8.6-10.3); Potassium 4.4 mEq/L (3.5-5.1)
[2018-06-20] MEDS: Magic Mouthwash 10 ML UD Cup PO PRN (17:36)
--- NOTE | 2018-06-20 22:28 | Electrocardiograph Report ---
[place] [id number] Test Date: 2018-06-17 Pat Name: Bo Carter Department: [id number] Room: 2A26 Gender: M [employer]room [employer] Optician: : 1940 Requested By: Daniel Barclay Order Number: [id number] Reading MD: Venkat Valdez Measurements Intervals [place] Rate: 98 P: 67 CA: 188 QRS: -63 QRSD: 109 T: 85 QT: 336 QTc: 429 Interpretive Statements Sinus tachycardia with PACs Nonspecific IVCD with LAD Inferior infarct, old Anterior infarct, old Electronically Signed On 06-20-2018 22:26:36 EST by Venkat Valdez
[2018-06-21] MEDS: *HR* Heparin 5,000 UNIT/ML VIAL SQ SCH ×2 (00:21→08:21)
[2018-06-21] MEDS: MethylPREDNISolone 40 MG/ML VIAL IVP SCH ×4 (00:22→17:23)
[2018-06-21] MEDS: Ipratropium/Albuterol Neb 3 ML IH SCH ×6 (03:55→23:40)
[2018-06-21 04:21] LABS: Hematocrit 30.1 % (37.5-50.1); Hemoglobin 9.6 g/dL (12.9-16.9); Immature Granulocytes % 0.9 % (0-4); Lymphocytes # 0.2 K/mcL (0.6-4.6); Mean Corpuscular HGB Conc 31.9 g/dL (31.6-35.5); Mean Corpuscular Hemoglobin 31.3 pg (28.0-33.3); Mean Platelet Volume 10.1 fL (9.4-12.4); Monocytes # 0.4 K/mcL (0.0-1.3); Nucleated Red Blood Cells 0.2 /100 WBC (0); Platelet Count 187 K/mcL (140-400); Red Blood Count 3.07 M/mcL (4.19-5.50); Red Cell Distribution Width 12.5 % (11.5-14.5); Segmented Neutrophils % 94.1 %
[2018-06-21 04:37] LABS: Calcium 8.8 mg/dL (8.6-10.3); Potassium 4.7 mEq/L (3.5-5.1)
[2018-06-21] MEDS: Cefepime HCl 2,000 MG in 0.9 % Sodium Chloride Mini Bag 100 ML IVPB SCH ×2 (04:45→17:24)
[2018-06-21] MEDS: Budesonide/Formoterol 160/4.5 1 PUFF INH IH SCH ×2 (07:35→19:45)
[2018-06-21] MEDS: Acetaminophen 325 MG TABLET PO SCH ×2 (08:21→20:55)
[2018-06-21] MEDS: Gabapentin 300 MG CAPSULE PO SCH ×4 (08:21→20:55)
[2018-06-21] MEDS: Loratadine 10 MG TABLET PO SCH (08:21)
[2018-06-21] MEDS: Magic Mouthwash 10 ML UD Cup PO PRN (08:22)
[2018-06-21] MEDS: Aspirin Enteric Coated 81 MG Tablet PO SCH (08:22)
[2018-06-21] MEDS: Multivit/Ca/Min/Fe/FA 1 TAB TABLET PO SCH (08:22)
[2018-06-21] MEDS: Insulin LISPRO 300 UNITS/3 ML VIAL SQ SCH ×7 (08:23→21:08)
[2018-06-21] MEDS: Insulin DETEMIR 100 UNIT/ML X5UNITS SQ SCH ×2 (08:24→21:09)
[2018-06-21 10:37] LABS: Bilirubin,Urine Negative (Negative); Blood,Urine Large (Negative); Clarity,Urine Clear (Clear); Color,Urine Dark Yellow (Yellow); Glucose,Urine (UA) 250 mg/dL (Normal); Ketones,Urine Negative (Negative); Leukocyte Esterase,Urine Small (Negative); Nitrite,Urine Negative (Negative); Protein,Urine >=1000 mg/dL (Neg-Trace); Specific Gravity,Urine 1.023 (1.010-1.025); Urobilinogen,Urine Normal (Normal)
[2018-06-21 10:55] LABS: RBC,Urine TNTC per hpf (0-3)
--- NOTE | 2018-06-21 11:12 | Urology - Consult Note ---
<Christina Damon N - Last Filed: 06/21/18 11:33> Date of Encounter: 06/21/18 Time of Encounter: 11:10 - Assessment and Plan (1) Gross hematuria Current Visit: Yes Status: Acute Assessment and plan: Patient is a 78-year-old male who presents the history of gross hematuria. Patient's urine has been sent for culture. Patient is receiving IV cefepime and Levaquin. Heparin has been held. Creatinine elevated at 2.49, and hemoglobin is stabilized. 22-Kyrgyz three-way catheter was placed with minimal difficulty. Immediate return of 1200 mL of clear urine. Hand irrigated with 120 mL of sterile water without any clot evacuation. Patient tolerated well without any complications. Urology CN:[facility] Consult date: 06/21/18 Reason for consult Urology: Gross Hematuria History of present illness: Patient is a 78-year-old male who presents with a history of gross hematuria. Patient states he is performs self intermittent catheterization due to urinary retention and incomplete bladder emptying for the last 20 years. Patient reports performing SIC 6-7 times daily and only noticed blood after most recent catheterization. Patient was admitted via the emergency department on 06/17/2017 for pneumonia, and patient has a significant past medical history for stage III pulmonary squamous cell carcinoma. Patient denies any past medical history of renal stones, prostate cancer, or other malignancy. Patient denies any known family history of prostate cancer or malignancy. Currently, patient is sitting upright in bed resting comfortably in no apparent distress. Patient reports some feeling of urgency, hesitancy and dysuria. Patient's nurse collected most recent urine sample and submitted it for urine culture. Past Med Surg Social Fam HX - Past Medical History Medical history: cancer, diabetes, hyperlipidemia, hypertension Additional medical history: lung CA Psychiatric history: no psych history - Past Surgical History Additional surgical history: back sx - Social History Smoking Status: Former smoker Smokeless Tobacco Status: No Alcohol use: none Drug use: none - Family History Mother Hx Family Neuromuscular Disorders: Yes (Parkinsons) Medications and Allergies RX: Acetaminophen [Tylenol] 650 mg PO BID 10/27/17 [History] RX: Aspirin Enteric Coated [Aspirin EC] 81 mg PO DAILY 10/27/17 [History] RX: Atorvastatin [Lipitor] 40 mg PO HS 10/27/17 [History] RX: Cholecalciferol (D-3) [Vitamin D] 4,000 unit PO DAILY 10/27/17 [History] RX: DULoxetine [Cymbalta] 30 mg PO BID 10/27/17 [History] RX: Gabapentin [Neurontin] 600 mg PO TID 10/27/17 [History] RX: Multivitamin [One Daily Essential] 1 tab PO DAILY 10/27/17 [History] RX: Tramadol HCl [Ultram] 50 mg PO BID PRN 10/27/17 [History] RX: glipiZIDE [Glucotrol] 5 mg PO BID 10/27/17 [History] Cyanocobalamin (Vitamin B-12) [Vitamin B-12] 1,000 mcg PO Q72H 12/21/17 [History] Lidocaine/Prilocaine [Emla] 1 appl TP DAILY #30 gm 01/02/18 [Rx] Promethazine [Phenergan] 25 mg PO Q6HR PRN #30 tablet 01/02/18 [Rx] RX: Magic Mouthwash [Magic Mouthwash BLM] 5 ml PO Q2H PRN #480 ml 03/17/18 [Rx] RX: Bisacodyl [Dulcolax] 5 mg PO DAILY PRN #30 tablet 04/28/18 [Rx] RX: GuaiFENesin/Dextromethorphan [Robitussin/Dm] 5 ml PO Q6HR PRN #240 ml 04/28/18 [Rx] Budesonide/Formoterol 160/4.5 [Symbicort 160/4.5] 2 puff IH BID #1 hfa.aer.ad 06/09/18 [Rx] RX: Cetirizine HCl [Zyrtec] 10 mg PO DAILY #90 capsule 06/09/18 [Rx] Pantoprazole Sodium [Protonix] 40 mg PO DAILY 06/19/18 [History] Allergy/AdvReac Type Severity Reaction Status Date / Time Cyclobenzaprine Allergy See Verified 06/09/18 14:16 Comments methocarbamol Allergy See Verified 06/09/18 14:16 Comments doxazosin AdvReac See Verified 06/19/18 23:58 Comments Review of Systems - Constitutional no chills, no fatigue, no fever(s) - EENT Nose, mouth and throat: no dizziness, no headache(s) - Cardiovascular dyspnea, no chest pain, no diaphoresis - Respiratory cough, dyspnea - Gastrointestinal no abdominal pain, no nausea, no vomiting - Genitourinary difficulty urinating, dysuria, hematuria, urinary frequency, urinary hesitancy, urinary urgency, no change in urinary stream, no flank pain, no urinary incontinence - Musculoskeletal no back pain, no muscle weakness - Integumentary no erythema, no rash - Neurological no confusion, no syncope - Psychiatric no anxiety, no confusion - Hematologic/Lymphatic no easy bleeding, no easy bruising - Allergic/Immunologic no throat swelling, no wheezing Exam Initial Vital Signs Temp Pulse Resp BP Pulse Ox 98.5 F 92 24 149/67 81 06/17/18 14:37 06/17/18 14:37 06/17/18 14:37 06/17/18 14:37 06/17/18 14:37 - General physical appearance Present: well developed, no distress, no pain - Eyes Present: PERRL, normal ocular movement - ENT Present: normal nares, no hearing loss, no congestion - Neck Present: no masses - Respiratory Present: normal respiratory effort - Abdomen Abdomen: Present: soft, non tender - Genitourinary normal penis with no external lesions Penis: Present: retractable foreskin, other (dark red clot at meatus ) Urethral meatis: Present: patent - Integumentary Present: no rash, no abnormal pigmentation - Neurologic Present: normal coordination Urology Results - Labs 06/21/18 04:00 06/21/18 04:00 Abnormal lab results WBC 11.7 K/mcL (4.3-11.1) H 06/21/18 04:00 RBC 3.07 M/mcL (4.19-5.50) L 06/21/18 04:00 Hgb 9.6 g/dL (12.9-16.9) L 06/21/18 04:00 Hct 30.1 % (37.5-50.1) L 06/21/18 04:00 Neutrophils # 11.0 K/mcL (1.6-8.9) H 06/21/18 04:00 Lymphocytes # 0.2 K/mcL (0.6-4.6) L 06/21/18 04:00 Nucleated RBCs/100 WBC 0.2 /100 WBC (0) H 06/21/18 04:00 Platelet Estimate Slight Decrease (Normal) L 06/18/18 06:16 Sodium 134 mEq/L (136-145) L 06/21/18 04:00 BUN 76 mg/dL (8-23) H 06/21/18 04:00 Creatinine 2.49 mg/dL (0.70-1.30) H 06/21/18 04:00 Est GFR ( Amer) 31 (> 60) L 06/21/18 04:00 Est GFR (Non-Af Amer) 25 (> 60) L 06/21/18 04:00 BUN/Creatinine Ratio 31 (6-26) H 06/21/18 04:00 Glucose 296 mg/dL (70-105) H 06/21/18 04:00 POC Glucose 115 mg/dL (70-99) H 06/20/18 20:43 Hemoglobin A1c 9.1 % (-5.6) H 06/17/18 15:52 Calculated Osmolality 312 (280-300) H 06/21/18 04:00 B-Natriuretic Peptide 313 pg/mL (Less than 100) H 06/18/18 06:16 Ur Specimen Adequacy See below A 06/21/18 09:50 Urine Protein >=1000 mg/dL (Neg-Trace) H 06/21/18 09:50 Urine Glucose (UA) 250 mg/dL (Normal) H 06/21/18 09:50 Urine Blood Large (Negative) H 06/21/18 09:50 Ur Leukocyte Esterase Small (Negative) H 06/21/18 09:50 Urine Microscopic RBC TNTC per hpf (0-3) H 06/21/18 09:50 Ur Squamous Epith Cells Many per lpf (None-Few) H 06/17/18 16:00 Urine Bacteria Many per hpf (None-Few) H 06/17/18 16:00 Ur Culture Indicated? YES (NO) A 06/21/18 09:50 Diabetes panel 06/20/18 06/21/18 Range/Units 16:15 04:00 Sodium 135 L 134 L (136-145) mEq/L Potassium 4.4 4.7 (3.5-5.1) mEq/L Chloride 102 103 (98-107) mEq/L Carbon Dioxide 26 25 (23-29) mEq/L BUN 75 H 76 H (8-23) mg/dL Creatinine 2.30 H 2.49 H (0.70-1.30) mg/dL Glucose 183 H 296 H (70-105) mg/dL Calcium 8.5 L 8.8 (8.6-10.3) mg/dL Calcium panel 06/20/18 06/21/18 Range/Units 16:15 04:00 Calcium 8.5 L 8.8 (8.6-10.3) mg/dL Pituitary panel 06/20/18 06/21/18 Range/Units 16:15 04:00 Sodium 135 L 134 L (136-145) mEq/L Potassium 4.4 4.7 (3.5-5.1) mEq/L Chloride 102 103 (98-107) mEq/L Carbon Dioxide 26 25 (23-29) mEq/L BUN 75 H 76 H (8-23) mg/dL Creatinine 2.30 H 2.49 H (0.70-1.30) mg/dL Glucose 183 H 296 H (70-105) mg/dL Calcium 8.5 L 8.8 (8.6-10.3) mg/dL Adrenal panel 06/20/18 06/21/18 Range/Units 16:15 04:00 Sodium 135 L 134 L (136-145) mEq/L Potassium 4.4 4.7 (3.5-5.1) mEq/L Chloride 102 103 (98-107) mEq/L Carbon Dioxide 26 25 (23-29) mEq/L BUN 75 H 76 H (8-23) mg/dL Creatinine 2.30 H 2.49 H (0.70-1.30) mg/dL Glucose 183 H 296 H (70-105) mg/dL Calcium 8.5 L 8.8 (8.6-10.3) mg/dL All other labs normal. Procedures:Urology - Bladder Irrigation/Clot Evacuation Consent obtained: verbal consent Irrigation: other (sterile water) Patient tolerated procedure: well Continuous Bladder Irrigation: No Complications: none - Catheter Insertion (Urinary) Estimated amount of urin (mLs): 1,200 Preparation: Povidone-Iodine, Urojet, Lidocaine Jelly Type of catheter inserted: 3 way, silastic Catheter Kyrgyz Size: 22 Topical anesthesia used: Yes (lidocaine jelly) Results: successfully catheterized-immediate flow Urine Appearance: Clear Patient tolerated procedure: well, no complications Complications: none Consult Discharge Plan - Plan Referrals: Jose Manuel Mc MD [Partnered Physician] - 06/23/18 1:00 pm (Please follow up as schedule...) <Rony Aguilar - Last Filed: 06/21/18 17:02> Date of Encounter: 06/21/18 - Assessment and Plan (1) Gross hematuria Current Visit: Yes Status: Acute Assessment and plan: pt seen and examined. I agree with physician promotions assistant sales marketing assessment. I suspect the patient developed a false passage and was unable to place his intermittent catheter. Combined with the anticoagulation caused the significant hematuria. Urine is clear at this time. I recommend leaving the catheter in place until Tuesday. Patient was instructed how to remove the catheter at home and then can resume intermittent catheterization. We will follow the patient and call to schedule appointment. Exam Initial Vital Signs Temp Pulse Resp BP Pulse Ox 98.5 F 92 24 149/67 81 06/17/18 14:37 06/17/18 14:37 06/17/18 14:37 06/17/18 14:37 06/17/18 14:37 Urology Results - Labs 06/21/18 04:00 06/21/18 04:00 Abnormal lab results WBC 11.7 K/mcL (4.3-11.1) H 06/21/18 04:00 RBC 3.07 M/mcL (4.19-5.50) L 06/21/18 04:00 Hgb 9.6 g/dL (12.9-16.9) L 06/21/18 04:00 Hct 30.1 % (37.5-50.1) L 06/21/18 04:00 Neutrophils # 11.0 K/mcL (1.6-8.9) H 06/21/18 04:00 Lymphocytes # 0.2 K/mcL (0.6-4.6) L 06/21/18 04:00 Nucleated RBCs/100 WBC 0.2 /100 WBC (0) H 06/21/18 04:00 Platelet Estimate Slight Decrease (Normal) L 06/18/18 06:16 Sodium 134 mEq/L (136-145) L 06/21/18 04:00 BUN 76 mg/dL (8-23) H 06/21/18 04:00 Creatinine 2.49 mg/dL (0.70-1.30) H 06/21/18 04:00 Est GFR ( Amer) 31 (> 60) L 06/21/18 04:00 Est GFR (Non-Af Amer) 25 (> 60) L 06/21/18 04:00 BUN/Creatinine Ratio 31 (6-26) H 06/21/18 04:00 Glucose 296 mg/dL (70-105) H 06/21/18 04:00 POC Glucose 115 mg/dL (70-99) H 06/20/18 20:43 Hemoglobin A1c 9.1 % (-5.6) H 06/17/18 15:52 Calculated Osmolality 312 (280-300) H 06/21/18 04:00 B-Natriuretic Peptide 313 pg/mL (Less than 100) H 06/18/18 06:16 Ur Specimen Adequacy See below A 06/21/18 09:50 Urine Protein >=1000 mg/dL (Neg-Trace) H 06/21/18 09:50 Urine Glucose (UA) 250 mg/dL (Normal) H 06/21/18 09:50 Urine Blood Large (Negative) H 06/21/18 09:50 Ur Leukocyte Esterase Small (Negative) H 06/21/18 09:50 Urine Microscopic RBC TNTC per hpf (0-3) H 06/21/18 09:50 Ur Squamous Epith Cells Many per lpf (None-Few) H 06/17/18 16:00 Urine Bacteria Many per hpf (None-Few) H 06/17/18 16:00 Ur Culture Indicated? YES (NO) A 06/21/18 09:50 Diabetes panel 06/21/18 Range/Units 04:00 Sodium 134 L (136-145) mEq/L Potassium 4.7 (3.5-5.1) mEq/L Chloride 103 (98-107) mEq/L Carbon Dioxide 25 (23-29) mEq/L BUN 76 H (8-23) mg/dL Creatinine 2.49 H (0.70-1.30) mg/dL Glucose 296 H (70-105) mg/dL Calcium 8.8 (8.6-10.3) mg/dL Calcium panel 06/21/18 Range/Units 04:00 Calcium 8.8 (8.6-10.3) mg/dL Pituitary panel 06/21/18 Range/Units 04:00 Sodium 134 L (136-145) mEq/L Potassium 4.7 (3.5-5.1) mEq/L Chloride 103 (98-107) mEq/L Carbon Dioxide 25 (23-29) mEq/L BUN 76 H (8-23) mg/dL Creatinine 2.49 H (0.70-1.30) mg/dL Glucose 296 H (70-105) mg/dL Calcium 8.8 (8.6-10.3) mg/dL Adrenal panel 06/21/18 Range/Units 04:00 Sodium 134 L (136-145) mEq/L Potassium 4.7 (3.5-5.1) mEq/L Chloride 103 (98-107) mEq/L Carbon Dioxide 25 (23-29) mEq/L BUN 76 H (8-23) mg/dL Creatinine 2.49 H (0.70-1.30) mg/dL Glucose 296 H (70-105) mg/dL Calcium 8.8 (8.6-10.3) mg/dL All other labs normal.
--- NOTE | 2018-06-21 12:28 | Internal Med Progress Note ---
Hospitalist Progress Note - Encounter Date of Encounter: 06/21/18 Time of Encounter: 12:26 - Subjective Interval History: Pt states breathing improved today. He is tolerating nasal canula. SOB continues to improve since admission. He denies chest pain. He denies fever or chills. He denies N/V, constipation, or diarrhea. He did report alona blood after self cath this am. He denies dysuria, urinary frequency or urgency. - Exam Vitals: Temp Pulse Resp BP Pulse Ox 98.7 F 91 16 141/83 96 06/21/18 11:36 06/21/18 11:36 06/21/18 11:36 06/21/18 11:36 06/21/18 11:36 Exam: CONSTITUTIONAL: Patient appears as an age appropriate male well developed, in no acute distress. EYES Clear sclerae, bilateral pupils are equal, reactive to light and accommodation. Extraocular movements are intact RESPIRATORY: No accessory muscle use, bilateral reduced breath sounds, bilateral crackles/rales. CARDIOVASCULAR: Regular heart rate, normal S1 and S2, no murmurs GASTROINTESTINAL: bowel sounds present, soft, no tenderness. No hepatosplenomegaly. No bilateral CVA tenderness MUSCULOSKELETAL: Joints in normal range of motion, no clubbing, no edema, no cyanosis. Bilateral peripheral pulses 2+ LYMPHATIC no lymphadenopathy in neck, groin and axilla bilaterally, no thyromegaly. NEUROLOGIC: CN II to XII are grossly intact, no focal neurological deficit. Deep tendon reflexes 2+ bilaterally. Normal light touch sensation to upper and lower extremity PSYCHIATRIC: Oriented x3, with good insight, mood is euthymic. No hallucinations or delusions. SKIN: Skin warm and dry, no rashes, no open wound. - Assessment and Plan (1) Sepsis Current Visit: Yes Status: Acute Assessment and Plan: Pt met due to HR > 100 and WBC 14.7 on admission. He was initially placed on Vancomycin, Levaquin, and Cefepime. Vancomycin discontinued due to neg MRSA nasal swab. Will plan to transition to PO antibiotic at discharge. (2) HCAP (healthcare-associated pneumonia) Current Visit: Yes Status: Acute Assessment and Plan: As above. Checking Mycoplasma IgG and IgM. Sent and received and awaiting final results. (3) Acute respiratory failure with hypoxia Current Visit: Yes Status: Acute Assessment and Plan: Possible gram-negative bacterial pneumonia. On admission, O2 sat 81% on RA, RR 24 from pneumonia Strep pneumonia antigen and Legionella antigen negative. Sputum culture ordered, collected, and sent. Continue cefepime and the levofloxacin. Pt qualified for home oxygen at discharge. (4) COPD (chronic obstructive pulmonary disease) Current Visit: Yes Status: Acute Assessment and Plan: COPD acute exacerbation from pneumonia. Former smoker, quit smoking in 1995. Pt states he is not on home O2 Will continue on scheduled and PRN nebs and steroids. Also on Budesonide. Pt qualified fro home oxygen (5) Lung cancer Current Visit: Yes Status: Acute Assessment and Plan: Squamous cell lung cancer stage III. Ongoing chemotherapy, last chemo approx 1 week ago from time of admission. Follow up out pt with oncologist. (6) Chronic kidney disease, stage 3 Current Visit: Yes Status: Acute Assessment and Plan: CK D stages 3. creatinine trending up. Will give some fluid and check Cr in am. If continues to trend up, will consider nephrology consult. (7) Neurogenic bladder Current Visit: Yes Status: Chronic Assessment and Plan: self caths. Pt had some hematuria this morning. Consulting Urology to see. (8) UTI (urinary tract infection) Current Visit: Yes Status: Acute Assessment and Plan: on Cefepime. (9) Hematuria Current Visit: Yes Status: Acute Assessment and Plan: Consulting urology. Holding heparin. DVT Prophylaxis: Heparin - Summary of Assessment and Plan Summary of Assessment and Plan: History of present illness: Dr. Smith Mr. Carter is a 78 year old male who has history of COPD, lung cancer, hypertension hyperlipidemia, ,DM 2, diabetic neuropathy presenting emergency room for shortness of breath and the productive cough for 1 wk. 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 Her last chemotherapy 1 week ago. He started to feel shortness of breath a week ago, progressively gotten worse, and he also has productive cough with yellow isputum, he had a fever chills over last 2 days. He denies chest pain nausea vomiting. No diarrhea or consti pation. In the emergency room, WBC 14.7, he had CT angio which showed bilateral multifocal pneumonia, patient is going to be admitted for pneumonia, last admission was 03/2018 for pneumonia. - Time Spent with Patient Total time spent is greater than 50% in coordination of care (as documented) at patient's floor/unit and/or counseling patient: less than 15 minutes Plan of Care Discussed with: patient Internal Medicine: Result - Labs CBC & Chem 7: 06/21/18 04:00 06/21/18 04:00 Labs: Short CBC 06/20/18 06/21/18 Range/Units 16:15 04:00 WBC 12.0 H 11.7 H (4.3-11.1) K/mcL Hgb 9.1 L 9.6 L (12.9-16.9) g/dL Hct 28.6 L 30.1 L (37.5-50.1) % Plt Count 183 187 (140-400) K/mcL Neutrophils # 11.3 H 11.0 H (1.6-8.9) K/mcL BMP 06/20/18 06/21/18 16:15 04:00 Sodium 135 L 134 L Potassium 4.4 4.7 Chloride 102 103 Carbon Dioxide 26 25 BUN 75 H 76 H Creatinine 2.30 H 2.49 H Glucose 183 H 296 H Calcium 8.5 L 8.8 Urine 06/21/18 Range/Units 09:50 Urine Color Dark Yellow (Yellow) Urine Clarity Clear (Clear) Urine pH 7.0 (5.0-8.0) pH Units Ur Specific [place] 1.023 (1.010-1.025) Urine Protein >=1000 H (Neg-Trace) mg/dL Urine Glucose (UA) 250 H (Normal) mg/dL Consult Discharge Plan - Plan Referrals: Jose Manuel Mc MD [Partnered Physician] - 06/23/18 1:00 pm (Please follow up as schedule...) ____ (1) Sepsis Qualifiers: Sepsis type: sepsis due to unspecified organism Qualified Code(s): A41.9 - Sepsis, unspecified organism (4) COPD (chronic obstructive pulmonary disease) Qualifiers: COPD type: COPD with acute exacerbation Qualified Code(s): J44.1 - Chronic obstructive pulmonary disease with (acute) exacerbation (5) Lung cancer Qualifiers: Laterality: unspecified laterality Lung location: unspecified part of lung Qualified Code(s): C34.90 - Malignant neoplasm of unspecified part of unspecified bronchus or lung (8) UTI (urinary tract infection) Qualifiers: Urinary tract infection type: site unspecified Hematuria presence: without hematuria Qualified Code(s): N39.0 - Urinary tract infection, site not specified
[2018-06-21] MEDS: 0.9 % Sodium Chloride 1,000 ML IVC SCH (13:34)
[2018-06-21] MEDS: Levofloxacin 750 MG/150 ML 750 MG/150 ML BAG IVPB SCH (20:55)
[2018-06-22] MEDS: 0.9 % Sodium Chloride 1,000 ML IVC SCH (01:26)
[2018-06-22] MEDS: Ipratropium/Albuterol Neb 3 ML IH SCH ×3 (03:46→11:16)
[2018-06-22] MEDS: Cefepime HCl 2,000 MG in 0.9 % Sodium Chloride Mini Bag 100 ML IVPB SCH (04:18)
[2018-06-22] MEDS: MethylPREDNISolone 40 MG/ML VIAL IVP SCH (04:18)
[2018-06-22 04:51] LABS: Basophils % 0.1 %; Hemoglobin 9.9 g/dL (12.9-16.9); Lymphocytes # 0.6 K/mcL (0.6-4.6); Lymphocytes % 5.1 %; Mean Corpuscular HGB Conc 31.9 g/dL (31.6-35.5); Mean Corpuscular Hemoglobin 31.4 pg (28.0-33.3); Mean Corpuscular Volume 98.4 fL (83.0-100.0); Monocytes # 0.8 K/mcL (0.0-1.3); Monocytes % 6.8 %; Neutrophils # 9.6 K/mcL (1.6-8.9); Platelet Count 187 K/mcL (140-400); Red Blood Count 3.15 M/mcL (4.19-5.50); Red Cell Distribution Width 12.4 % (11.5-14.5)
[2018-06-22 05:06] LABS: Calcium 8.3 mg/dL (8.6-10.3); Potassium 4.6 mEq/L (3.5-5.1)
[2018-06-22] MEDS: Insulin LISPRO 300 UNITS/3 ML VIAL SQ SCH ×2 (07:40→07:43)
[2018-06-22] MEDS: Budesonide/Formoterol 160/4.5 1 PUFF INH IH SCH (07:43)
[2018-06-22] MEDS: Insulin DETEMIR 100 UNIT/ML X5UNITS SQ SCH (07:44)
[2018-06-22] MEDS: Loratadine 10 MG TABLET PO SCH (08:36)
[2018-06-22] MEDS: Gabapentin 300 MG CAPSULE PO SCH (08:36)
[2018-06-22] MEDS: Aspirin Enteric Coated 81 MG Tablet PO SCH (08:36)
[2018-06-22] MEDS: Multivit/Ca/Min/Fe/FA 1 TAB TABLET PO SCH (08:37)
[2018-06-22] MEDS: Acetaminophen 325 MG TABLET PO SCH (08:37)
[2018-06-22] MEDS ORDERED: Insulin DETEMIR 100 UNIT/ML X5UNITS SQ SCH ×2 (09:00→10:45)
--- NOTE | 2018-06-22 09:02 | Urology Progress Note ---
<Christina Damon N - Last Filed: 06/22/18 09:00> Date of Encounter: 06/22/18 Time of Encounter: 08:45 - Assessment and Plan (1) Gross hematuria Status: Acute Assessment and plan: Patient is a 78-year-old male who presents with a history of gross hematuria and urinary retention. Patient likely created a false passage with self-catheterization. Current Chacon catheter is indwelling and sufficiently draining clear urine. Hematuria is resolved. Patient understands he will continue with indwelling Chacon for 1 week and present as an outpatient for a voiding trial in our office. Progress Note Subjective: no new complaints, feels better Narrative: Patient seen and examined sitting upright in bed eating breakfast in no apparent distress. Patient denies any catheter discomfort or feeling of obstruction. Chacon catheter is indwelling and draining clear urine into bedside bag, with no clots or sediment observed. Objective Initial Vital Signs Temp Pulse Resp BP Pulse Ox 98.5 F 92 24 149/67 81 06/17/18 14:37 06/17/18 14:37 06/17/18 14:37 06/17/18 14:37 06/17/18 14:37 - General physical appearance Present: well developed, no distress, no pain - Respiratory Present: normal expansion, normal respiratory effort - Abdomen Present: soft, non tender - Genitourinary Urine Appearance: Present: Clear. Absent: Sediment, Hematuria - Integumentary Present: no rash, no abnormal pigmentation - Musculoskeletal Present: normal posture - Psychiatric Present: oriented to time, oriented to person, oriented to place, speech is normal, memory intact - Labs 06/22/18 04:20 06/22/18 04:20 Diabetes panel 06/22/18 Range/Units 04:20 Sodium 142 (136-145) mEq/L Potassium 4.6 (3.5-5.1) mEq/L Chloride 109 H (98-107) mEq/L Carbon Dioxide 27 (23-29) mEq/L BUN 64 H (8-23) mg/dL Creatinine 2.10 H (0.70-1.30) mg/dL Glucose 99 (70-105) mg/dL Calcium 8.3 L (8.6-10.3) mg/dL Calcium panel 06/22/18 Range/Units 04:20 Calcium 8.3 L (8.6-10.3) mg/dL Pituitary panel 06/22/18 Range/Units 04:20 Sodium 142 (136-145) mEq/L Potassium 4.6 (3.5-5.1) mEq/L Chloride 109 H (98-107) mEq/L Carbon Dioxide 27 (23-29) mEq/L BUN 64 H (8-23) mg/dL Creatinine 2.10 H (0.70-1.30) mg/dL Glucose 99 (70-105) mg/dL Calcium 8.3 L (8.6-10.3) mg/dL Adrenal panel 06/22/18 Range/Units 04:20 Sodium 142 (136-145) mEq/L Potassium 4.6 (3.5-5.1) mEq/L Chloride 109 H (98-107) mEq/L Carbon Dioxide 27 (23-29) mEq/L BUN 64 H (8-23) mg/dL Creatinine 2.10 H (0.70-1.30) mg/dL Glucose 99 (70-105) mg/dL Calcium 8.3 L (8.6-10.3) mg/dL Consult Discharge Plan - Plan Referrals: Jose Manuel Mc MD [Partnered Physician] - 06/23/18 1:00 pm (Please follow up as schedule...) Prescriptions: RX: OxyCODONE Oral Soln [OxyCODONE ORAL SOLN] 5 mg PO Q4H PRN 5 Days #15 [id number] PRN Reason: Pain RX: Tramadol HCl [Ultram] 50 mg PO BID PRN 5 Days #10 tablet PRN Reason: Pain <Rony Aguilar - Last Filed: 06/24/18 07:14> Date of Encounter: 06/24/18 - Assessment and Plan (1) Gross hematuria Status: Acute Assessment and plan: pt seen and examined in conjunction with PA. agree with assessment and plan except revised plan to have pt remove stent at home with followup in a few weeks or PRN sooner Objective Initial Vital Signs Temp Pulse Resp BP Pulse Ox 98.5 F 92 24 149/67 81 06/17/18 14:37 06/17/18 14:37 06/17/18 14:37 06/17/18 14:37 06/17/18 14:37 - Labs 06/22/18 04:20 06/22/18 04:20
--- NOTE | 2018-06-22 10:54 | Discharge Summary ---
- NOTES TO OUTPATIENT PROVIDER Notes to Outpatient Provider: PCP in 5 to 7 days. Urology out pt Orders not resulted at time of discharge: Pending orders 06/17/18 15:58 Culture,Blood [BC] Stat 06/19/18 13:43 Mycoplasma pneumoniae IgG IgM Routine 06/21/18 09:50 Culture,Urine [RM] Routine 06/23/18 04:00 BMP [Basic Metabolic Panel] AM 0400 CBC [Complete Blood Count] [HEME] AM 0400 Date of Encounter: 06/22/18 Time of Encounter: 10:51 - Discharge Diagnosis (1) Sepsis Priority: Primary Status: Acute Assessment and Plan: Pt met due to HR > 100 and WBC 14.7 on admission. He was initially placed on Vancomycin, Levaquin, and Cefepime. Vancomycin discontinued due to neg MRSA nasal swab. Will plan to transition to PO antibiotic at discharge with few more days of Levaquin for total of 10 days. Qualifiers: Sepsis type: sepsis due to unspecified organism Qualified Code(s): A41.9 - Sepsis, unspecified organism (2) HCAP (healthcare-associated pneumonia) Priority: Primary Status: Acute Assessment and Plan: As above. Slowly improving. Checking Mycoplasma IgG and IgM. Sent and received and awaiting final results. Pt states he is feeling better. He denies fever, chills, N/V or diarrhea. He denies chest pain and SOB improving. (3) Acute respiratory failure with hypoxia Priority: Primary Status: Acute Assessment and Plan: Possible gram-negative bacterial pneumonia. On admission, O2 sat 81% on RA, RR 24 from pneumonia Strep pneumonia antigen and Legionella antigen negative. Sputum culture ordered, collected, and sent. Continue cefepime and the levofloxacin. Pt qualified for home oxygen at discharge. (4) COPD (chronic obstructive pulmonary disease) Priority: Secondary Status: Acute Assessment and Plan: COPD acute exacerbation from pneumonia. Former smoker, quit smoking in 1995. Pt states he is not on home O2 Will continue on scheduled and PRN nebs and steroids. Also on Budesonide. Pt qualified fro home oxygen Qualifiers: COPD type: COPD with acute exacerbation Qualified Code(s): J44.1 - Chronic obstructive pulmonary disease with (acute) exacerbation (5) Lung cancer Priority: Secondary Status: Acute Assessment and Plan: Squamous cell lung cancer stage III. Ongoing chemotherapy, last chemo approx 1 week ago from time of admission. Follow up out pt with oncologist. Qualifiers: Laterality: unspecified laterality Lung location: unspecified part of lung Qualified Code(s): C34.90 - Malignant neoplasm of unspecified part of unspecified bronchus or lung (6) Chronic kidney disease, stage 3 Priority: Secondary Status: Acute Assessment and Plan: CK D stages 3. creatinine trending up. Gave fluid and Cr down from 2.49 to 2.10. follow up out pt with nephrology for further monitoring and management. (7) Neurogenic bladder Priority: Secondary Status: Chronic Assessment and Plan: Self caths. Pt had some hematuria 06/21/18. Consulted Urology and catheter placed. 1200 cc out. Urology recommends leave in [place] till 06/26/18 and follow up out pt . (8) UTI (urinary tract infection) Priority: Secondary Status: Acute Assessment and Plan: on Cefepime. and completed Qualifiers: Urinary tract infection type: site unspecified Hematuria presence: without hematuria Qualified Code(s): N39.0 - Urinary tract infection, site not specified (9) Hematuria Priority: Secondary Status: Acute Assessment and Plan: Held heparin. Self caths. Pt had some hematuria 06/21/18. Consulted Urology and catheter placed. 1200 cc out. Urology recommends leave in [place] till 06/26/18 and follow up out pt . Qualifiers: Qualified Code(s): R31.9 - Hematuria, unspecified (10) DMII (diabetes mellitus, type 2) Priority: Secondary Status: Chronic Assessment and Plan: HgbA1C 9.1. Pt's glucose worsened by steroid therapy. Pt was on levemir here and SSI but his glucose dropped. Weaning off steroids. Will increase glipizide from 5 mg BID to 10 mg BID and have him follow up out pt with PCP. Qualifiers: Diabetes mellitus snf insulin use: without longwall foreman use Diabetes mellitus complication status: with kidney complications Chronic kidney disease stage: stage 3 (moderate) Qualified Code(s): E11.22 - Type 2 diabetes mellitus with diabetic chronic kidney disease; N18.3 - Chronic kidney disease, stage 3 (moderate) Hospital course: History of present illness: Dr. Smith Mr. Carter is a 78 year old male who has history of COPD, lung cancer, hypertension hyperlipidemia, ,DM 2, diabetic neuropathy presenting emergency room for shortness of breath and the productive cough for 1 wk. 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 Her last chemotherapy 1 week ago. He started to feel shortness of breath a week ago, progressively gotten worse, and he also has productive cough with yellow isputum, he had a fever chills over last 2 days. He denies chest pain nausea vomiting. No diarrhea or constipation. In the emergency room, WBC 14.7, he had CT angio which showed bilateral multifocal pneumonia, patient is going to be admitted for pneumonia, last admission was 03/[address] Trinidad See A/P for hospital course. Discharge discussed with: patient - Time Spent with Patient Total time spent providing and/or coordinating discharge services: Greater than 30 minutes - Discharge Medications Home Medications: Acetaminophen [Tylenol] 650 mg PO BID 10/27/17 [History] Aspirin Enteric Coated [Aspirin EC] 81 mg PO DAILY 10/27/17 [History] Atorvastatin [Lipitor] 40 mg PO HS 10/27/17 [History] Cholecalciferol (D-3) [Vitamin D] 4,000 unit PO DAILY 10/27/17 [History] DULoxetine [Cymbalta] 30 mg PO BID 10/27/17 [History] Gabapentin [Neurontin] 600 mg PO TID 10/27/17 [History] Multivitamin [One Daily Essential] 1 tab PO DAILY 10/27/17 [History] Tramadol HCl [Ultram] 50 mg PO BID PRN 10/27/17 [History] Cyanocobalamin (Vitamin B-12) [Vitamin B-12] 1,000 mcg PO Q72H 12/21/17 [History] Lidocaine/Prilocaine [Emla] 1 appl TP DAILY #30 gm 01/02/18 [Rx] Promethazine [Phenergan] 25 mg PO Q6HR PRN #30 tablet 01/02/18 [Rx] Magic Mouthwash [Magic Mouthwash BLM] 5 ml PO Q2H PRN #480 ml 03/17/18 [Rx] Bisacodyl [Dulcolax] 5 mg PO DAILY PRN #30 tablet 04/28/18 [Rx] GuaiFENesin/Dextromethorphan [Robitussin/Dm] 5 ml PO Q6HR PRN #240 ml 04/28/18 [Rx] Budesonide/Formoterol 160/4.5 [Symbicort 160/4.5] 2 puff IH BID #1 hfa.aer.ad 06/09/18 [Rx] Cetirizine HCl [Zyrtec] 10 mg PO DAILY #90 capsule 06/09/18 [Rx] Pantoprazole Sodium [Protonix] 40 mg PO DAILY 06/19/18 [History] glipiZIDE [Glucotrol] 10 mg PO BID #0 06/22/18 [Rx] levoFLOXacin [Levaquin] 750 mg PO Q48H tablet 06/22/18 [Rx] Allergies/Adverse Reactions: Allergy/AdvReac Type Severity Reaction Status Date / Time Cyclobenzaprine Allergy See Verified 06/09/18 14:16 Comments methocarbamol Allergy See Verified 06/09/18 14:16 Comments doxazosin AdvReac See Verified 06/19/18 23:58 Comments Date of admission: 06/17/18 18:24 Primary care physician: PCP CT Consults: 06/17/18 18:28 Consult to Nurse Navigator [CONS] Routine Comment: 06/19/18 10:35 Consult to Occupational Therapy [CONS] Routine Comment: Evaluate, develop and implement POC Reason for Consult: eval for CT home health to be setup Does patient have active BEDREST order?: No Is patient medically & hemodynamically stable?: Yes Consult to Physical Therapy [CONS] Stat Comment: Evaluate, develop and implement POC Reason for Consult: eval for CT home health to be setup Does patient have active BEDREST order?: No Is patient medically & hemodynamically stable?: Yes 06/20/18 12:46 Consult to Directory Operator [CONS] Routine Reason for SW Consult: pt needs ecf 06/21/18 11:05 Consult to Urology [CONS] Stat Consulting Provider: Urology Kaila Reason for Consult: bleeding with catheterization Call Completed: No Discharging clinician: Laura Trinidad Anticipated date of discharge: 06/22/18 - Constitutional Vitals: Temp Pulse Resp BP Pulse Ox 97.8 F 92 18 129/83 90 06/22/18 06:36 06/22/18 06:36 06/22/18 06:36 06/22/18 06:36 06/22/18 06:36 General appearance: Present: A&O X 3, pleasant Exam: CONSTITUTIONAL: Patient appears as an age appropriate male well developed, in no acute distress. EYES Clear sclerae, bilateral pupils are equal, reactive to light and accommodation. Extraocular movements are intact RESPIRATORY: No accessory muscle use, bilateral reduced breath sounds, bilateral crackles/rales (chronic). CARDIOVASCULAR: Regular heart rate, normal S1 and S2, no murmurs GASTROINTESTINAL: bowel sounds present, soft, no tenderness. No hepatosplenomegaly. No bilateral CVA tenderness MUSCULOSKELETAL: Joints in normal range of motion, no clubbing, no edema, no cy anosis. Bilateral peripheral pulses 2+ LYMPHATIC no lymphadenopathy in neck, groin and axilla bilaterally, no thyromegaly. NEUROLOGIC: CN II to XII are grossly intact, no focal neurological deficit. Deep tendon reflexes 2+ bilaterally. Normal light touch sensation to upper and lower extremity PSYCHIATRIC: Oriented x3, with good insight, mood is euthymic. No hallucinations or delusions. SKIN: Skin warm and dry, no rashes, no open wound. - Patient Status Disposition: Transfer SNF Condition: Fair Overall status at discharge: patient is progressing back to baseline - Discharge Instructions Follow Up With: Jose Manuel Mc MD [Partnered Physician] - 06/23/18 1:00 pm (Please follow up as schedule...) - Diet and Activity Activity: as per physical therapy, increase activity as tolerated Diet: advance to your usual diet, diabetic diet
[2018-06-22 11:01] VITALS: BP 133/70
--- NOTE | 2018-06-22 11:16 | Physician Discharge Referral ---
[facility] Referral Info Provider in Charge after Transfer: PCP Institutional Level of Care: Skilled - Diagnosis (1) Sepsis Status: Acute (2) HCAP (healthcare-associated pneumonia) Status: Acute (3) Acute respiratory failure with hypoxia Status: Acute (4) COPD (chronic obstructive pulmonary disease) Status: Acute (5) Lung cancer Status: Acute (6) Chronic kidney disease, stage 3 Status: Acute (7) Neurogenic bladder Status: Chronic (8) UTI (urinary tract infection) Status: Acute (9) Hematuria Status: Acute (10) DMII (diabetes mellitus, type 2) Status: Chronic - Transfer Medications Home Medications: Acetaminophen [Tylenol] 650 mg PO BID 10/27/17 [History] Aspirin Enteric Coated [Aspirin EC] 81 mg PO DAILY 10/27/17 [History] Atorvastatin [Lipitor] 40 mg PO HS 10/27/17 [History] Cholecalciferol (D-3) [Vitamin D] 4,000 unit PO DAILY 10/27/17 [History] DULoxetine [Cymbalta] 30 mg PO BID 10/27/17 [History] Gabapentin [Neurontin] 600 mg PO TID 10/27/17 [History] Multivitamin [One Daily Essential] 1 tab PO DAILY 10/27/17 [History] Tramadol HCl [Ultram] 50 mg PO BID PRN 10/27/17 [History] Cyanocobalamin (Vitamin B-12) [Vitamin B-12] 1,000 mcg PO Q72H 12/21/17 [History] Lidocaine/Prilocaine [Emla] 1 appl TP DAILY #30 gm 01/02/18 [Rx] Promethazine [Phenergan] 25 mg PO Q6HR PRN #30 tablet 01/02/18 [Rx] Magic Mouthwash [Magic Mouthwash BLM] 5 ml PO Q2H PRN #480 ml 03/17/18 [Rx] Bisacodyl [Dulcolax] 5 mg PO DAILY PRN #30 tablet 04/28/18 [Rx] GuaiFENesin/Dextromethorphan [Robitussin/Dm] 5 ml PO Q6HR PRN #240 ml 04/28/18 [Rx] Budesonide/Formoterol 160/4.5 [Symbicort 160/4.5] 2 puff IH BID #1 hfa.aer.ad 06/09/18 [Rx] Cetirizine HCl [Zyrtec] 10 mg PO DAILY #90 capsule 06/09/18 [Rx] Pantoprazole Sodium [Protonix] 40 mg PO DAILY 06/19/18 [History] glipiZIDE [Glucotrol] 10 mg PO BID #0 06/22/18 [Rx] levoFLOXacin [Levaquin] 750 mg PO Q48H tablet 06/22/18 [Rx] Allergies/Adverse Reactions: Allergy/AdvReac Type Severity Reaction Status Date / Time Cyclobenzaprine Allergy See Verified 06/09/18 14:16 Comments methocarbamol Allergy See Verified 06/09/18 14:16 Comments doxazosin AdvReac See Verified 06/19/18 23:58 Comments - Respiratory Orders Smoking Cessation: Smoking cessation has been advised. For more information, call the [place] Tobacco Quit Line at 5-943-FYGV-NOW. - Advance Directives Code Status: Full Code CERTIFICATION: I certify that the transfer of the above named patient to an Extended Care Facility is necessary for the continuing treatment of the diagnosis listed. The above information is true and accurate reflection of patient's current condition. Confidential - Redisclosure prohibited without a patient's written consent.
[2018-06-22] MEDS ORDERED: Cefepime HCl 2,000 MG in Water for inj. (sterile) 20 ML 20 ML IVP SCH (18:00)
[2018-06-23] MEDS ORDERED: levoFLOXacin 750 MG TABLET PO SCH (09:00)
[2018-06-23 10:22] LABS: Mycoplasma pneumoniae IgG 0.46 U/L (<=0.09)
== END 2018-06-22 13:12 | DRG 871 ==
LOC: 2ANU 14:34 → EMEROOARM 14:34 → 2ANU 18:49
PROVIDERS: ADMIT Student in an Organized Health Care Education/Training Program; ATTEND Student in an Organized Health Care Education/Training Program

== ENCOUNTER 2018-09-30 01:25 | Inpatient (IN) ==
[2018-09-30] MEDS ORDERED: Naloxone 0.4 MG/ML INJ IVP PRN (06:03)
[2018-09-30] MEDS ORDERED: *HR* Dextrose 50 % in Water (Syg) 50 ML SYRINGE IVP PRN (06:06)
[2018-09-30] MEDS ORDERED: D5% in Water 1,000 ML IVC PRN (06:06)
[2018-09-30] MEDS ORDERED: Dextrose Gel 15 GM/37.5 ML TUBE PO PRN ×2 (06:06)
[2018-09-30] MEDS ORDERED: Ondansetron ODT 4 MG TAB.RAPDIS PO PRN (06:07)
[2018-09-30] MEDS ORDERED: Levofloxacin 750 MG/150 ML 750 MG/150 ML BAG IVPB ONE (06:14)
[2018-09-30] MEDS: 0.9 % Sodium Chloride 1,000 ML IVC SCH ×2 (06:30→19:41)
[2018-09-30] MEDS: *HR* Heparin 5,000 UNIT/ML VIAL SQ SCH ×3 (06:30→21:15)
--- NOTE | 2018-09-30 06:36 | Internal Med History&Physical ---
<Marie King E - Last Filed: 09/30/18 06:27> Date of Encounter: 09/30/18 Time of Encounter: 06:00 Internal Medicine - H&P: HPI Chief complaint: Chills and shortness of breath Admitted From: Home Plans for Post Hospital Care: Home History of present illness: Mr. 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 Presented to [facility] ED with complaints of shortness of breath and chills. Patient had had increased cough and sputum production over the last few weeks. Patient had recently been intubated due to pneumonitis caused by his chemotherapy. Treated for HCAP June at [place]. Patient does admit to shortness of breath worse on exertion, fevers, chills. He denies any nausea, vomiting, diarrhea, chest pain. He does state that he has constipation issues but this is normal for him. He has been using a straight catheter due to neurogenic bladder from failed back surgeries. At [facility] he had a fever 101.5 tachycardia of 105, respiratory rate of 16 and was requiring 4 L of oxygen by nasal cannula Labs included white blood cell 10.3, hemoglobin of 10.5, hematocrit of 34.4, BUN of 31, creatinine 1.95, GFR of 40,'s CRP of greater than 18 BNP of 2097, pH of 7.42, lactic acid of 1 UA showed urine protein 100, glucose 500, small amount of hemoglobin, trace l eukocyte esterase, bacteremia and urine culture was indicated. EKG concerning for A. fib RVR with rate of 105 He was given 1 dose of vancomycin and 1 dose of Zosyn is low as well as 125 mg of methyl prednisolone at [facility] Social history: Patient denies tobacco use, alcohol use, illicit drugs including marijuana Family history: Father heart disease, mother no adverse family history Past Med Surg Social Fam HX - Past Medical History Medical history: arthritis, cancer, diabetes, hyperlipidemia, hypertension Additional medical history: lung CA, possible neurogentic bladder? Psychiatric history: depression - Past Surgical History Additional surgical history: back sx x 3. - Social History Smoking Status: Former smoker Smokeless Tobacco Status: No Alcohol use: none Drug use: none - Family History Mother Hx Family Neuromuscular Disorders: Yes (Parkinsons) Internal Medicine - H&P: Meds Acetaminophen [Tylenol] 500 mg PO BID 10/27/17 [History] Aspirin Enteric Coated [Aspirin EC] 81 mg PO DAILY 10/27/17 [History] Atorvastatin [Lipitor] 40 mg PO HS 10/27/17 [History] Cholecalciferol (D-3) [Vitamin D] 4,000 unit PO DAILY 10/27/17 [History] DULoxetine [Cymbalta] 30 mg PO BID 10/27/17 [History] Gabapentin [Neurontin] 500 mg PO TID 10/27/17 [History] Multivitamin [One Daily Essential] 1 tab PO DAILY 10/27/17 [History] Cyanocobalamin (Vitamin B-12) [Vitamin B-12] 1,000 mcg PO Q72H 12/21/17 [History] Lidocaine/Prilocaine [Emla] 1 appl TP DAILY #30 gm 01/02/18 [Rx] Magic Mouthwash [Magic Mouthwash BLM] 5 ml PO Q2H PRN #480 ml 03/17/18 [Rx] Bisacodyl [Dulcolax] 5 mg PO DAILY PRN #30 tablet 04/28/18 [Rx] GuaiFENesin/Dextromethorphan [Robitussin/Dm] 5 ml PO Q6HR PRN #240 ml 04/28/18 [Rx] Budesonide/Formoterol 160/4.5 [Symbicort 160/4.5] 2 puff IH BID #1 hfa.aer.ad 06/09/18 [Rx] Pantoprazole Sodium [Protonix] 40 mg PO DAILY 06/19/18 [History] Miconazole 2% cream [Jorge Antifungal] 1 appl TP BID 06/27/18 [History] Miconazole Nitrate [Miconazorb AF] 1 appl TP BID 06/27/18 [History] Ondansetron HCl [Zofran] 4 mg PO TID PRN 06/27/18 [History] Tramadol HCl [Ultram] 50 mg PO BID 06/27/18 [History] Benzonatate [Tessalon] 200 mg PO BID PRN #30 capsule 08/23/18 [Rx] Insulin ASPART [Novolog Flexpen] 100 unit SQ TIDAC 09/25/18 [History] Insulin Glargine,Hum.rec.anlog [Lantus Solostar] 14 unit SQ HS 09/25/18 [History] Montelukast [Singulair] 10 mg PO DAILY 09/25/18 [History] Tiotropium [Spiriva] 2 puff IH DAILY 09/25/18 [History] Allergy/AdvReac Type Severity Reaction Status Date / Time Cyclobenzaprine Allergy See Verified 09/25/18 13:37 Comments methocarbamol Allergy See Verified 09/25/18 13:37 Comments doxazosin AdvReac See Verified 09/25/18 13:37 Comments All Systems PM: A 10-system review of systems was performed and is negative for pertinent findings except as documented above in the HPI. - Constitutional Constitutional: chills, fatigue, fever(s), weakness - EENT Eyes: no change in vision Nose, mouth and throat: sore throat, no dry mouth, no nasal congestion, no nasal discharge, no sinus pressure - Cardiovascular Cardiovascular ROS IM: irregular heart rhythm (Patient states he has times where his heart "just does not beat right"), no chest pain, no palpitations - Respiratory Respiratory: cough, wheezing, chest congestion, excessive phlegm production, change in phlegm color (He states from pillar can be anywhere from white to greenish yellow) - Gastrointestinal Gastrointestinal: constipation, no abdominal pain, no diarrhea - Genitourinary Genitourinary ROS male: no urinary frequency, no urinary hesitancy, no urinary urgency - Musculoskeletal Musculoskeletal ROS IM: no myalgias - Integumentary Integumentary IM: no erythema, no pruritus, no rash - Constitutional Vitals: Temp Pulse Resp BP Pulse Ox 99.0 F 105 20 131/70 92 09/30/18 04:47 09/30/18 04:47 09/30/18 04:47 09/30/18 04:47 09/30/18 04:47 Exam: General: AAO 3, mild distress, answers questions appropriately Head: normocephalic, atraumatic Eyes: CHATO, no icterus Mouth: Mucous membranes moist Neck: Trachea midline no lymphadenopathy Cardio: RRR, no mumurs, rubs, or gallops Respiratory: Wheezing throughout all lung jasso, crackles noted throughout, reveals bilateral lower lobes, patient is abdominal breathing Abd: normal bowel sounds, no gaurding or rigidity Extremties: 1+ pitting edema to the knee pulses equal bilaterally, warm Skin: warm, dry, intact - Assessment and Plan (1) Sepsis Current Visit: No Status: Acute Assessment and plan: Met SIRS criteria on ED arrival to [facility] attempt 11.5 tachycardia of 105 and potential infection source of pneumonia Likely secondary to age For COPD exacerbation first UTI Patient was given fluid bolus at [facility] Started on vancomycin and Zosyn Blood cultures, urine cultures, sputum culture have been ordered Regional and strep pneumonia antigens have been ordered Portal chest x-ray has been ordered Continue to monitor patient's clinical progress Qualifiers: Sepsis type: sepsis due to unspecified organism Qualified Code(s): A41.9 - Sepsis, unspecified organism (2) Acute and chronic respiratory failure Current Visit: Yes Status: Acute Assessment and plan: Patient has increased need for oxygen at this time Patient on 2 L of oxygen at home Patient currently requiring 4 L to saturate in the lower 90s Likely secondary to COPD exacerbation versus HCAP Continue supplemental oxygen DuoNeb's Qualifiers: Respiratory failure complication: hypoxia Qualified Code(s): J96.21 - Acute and chronic respiratory failure with hypoxia (3) HCAP (healthcare-associated pneumonia) Current Visit: No Status: Acute Assessment and plan: Patient has been treated for HCAP this past June Patient also had been recently intubated due to pneumonitis from his chemotherapy Blood cultures drawn Sputum culture Continue vancomycin, Zosyn and Levaquin for atypical coverage De-escalate as culture indicates Continue supplemental oxygen Chest x-ray has been ordered (4) COPD exacerbation Current Visit: Yes Status: Acute Assessment and plan: Patient has COPD on 2 L of oxygen at home Requiring increased oxygen demand 4 L by nasal cannula Patient has wheezing on exam Patient was given 125 of methyl prednisolone at [facility] Begin 40 every 6 Solu-Medrol DuoNeb's Treatment for HCAP As above (5) Atrial fibrillation with RVR Current Visit: Yes Status: Acute Assessment and plan: EKG at [facility] red A. fib RVR with rate of 105 EKG done on arrival showed A. fib RVR rate of 101 Patient has known history of "my heart does not quite eat quite right" We will consider heparin anticoagulation for A. fib due to patient's high risk of clot formation (6) UTI (urinary tract infection) Current Visit: No Status: Acute Assessment and plan: Patient's UA at [facility] showed protein 100, glucose of 500, small hemoglobin, trace Lucite esterase, bacteremia urine culture and UA reordered here at [place] Patient is currently being treated with vancomycin, Zosyn, Levaquin for age And COPD exacerbation Kaila medications to culture Qualifiers: Urinary tract infection type: site unspecified Hematuria presence: without hematuria Qualified Code(s): N39.0 - Urinary tract infection, site not s pecified (7) DMII (diabetes mellitus, type 2) Current Visit: No Status: Chronic Assessment and plan: Patient has history of insulin-dependent type 2 diabetes We will have him on a sliding scale insulin Accu-aWhere Diabetic diet Monitor patient's glucose and change sliding scale insulin as needed Qualifiers: Diabetes mellitus halfway insulin use: without supervisor ski production use Diabetes mellitus complication status: with kidney complications Chronic kidney disease stage: stage 3 (moderate) Qualified Code(s): E11.22 - Type 2 diabetes mellitus with diabetic chronic kidney disease; N18.3 - Chronic kidney disease, stage 3 (moderate) (8) Neurogenic bladder Current Visit: No Status: Chronic Assessment and plan: Patient has history of neurogenic bladder Patient straight Home Currently Patient Has Indwelling [place] Catheter (9) DVT prophylaxis Current Visit: Yes Status: Acute Assessment and plan: Heparin subcutaneous - Time Spent With Patient Total time spent is greater than 50% in coordination of care (as documented) at patient's floor/unit and/or counseling patient: <Clifton Cedeño A - Last Filed: 09/30/18 07:14> Date of Encounter: 09/30/18 Internal Medicine - H&P: HPI History of present illness: Mr. Carter is a 78 year old male All Systems PM: A 10-system review of systems was performed and is negative for pertinent findings except as documented above in the HPI. - Constitutional Vitals: Temp Pulse Resp BP Pulse Ox 99.0 F 105 20 131/70 92 09/30/18 04:47 09/30/18 04:47 09/30/18 04:47 09/30/18 04:47 09/30/18 04:47 Internal Med - H&P Results - Impressions ITS Impressions Chest X-Ray 09/30/18 06:13 IMPRESSION: Stable chest. Postoperative changes in the right lungs. Airspace opacity in the right mid to lower lung field, may be related to atelectasis versus pneumonia, stable. [id number] right-sided pleural effusion, stable. D/ / Devendra Machado MD / Devendra Machado MD Interpreting Provider: Devendra Machado MD - Time Spent With Patient Total time spent is greater than 50% in coordination of care (as documented) at patient's floor/unit and/or counseling patient: - Attending Attestation I performed a history and physical examination of the patient and discussed his management with the resident. I reviewed the resident's note and agree with the assessment and plan of care. In short patient is a 78-year-old male with past medical history of diabetes, neurogenic bladder, squamous cell carcinoma the right lower lobe of the lung and COPD on 2 L home oxygen who presented with 2 day history of fever, shortness of breath and productive cough. Patient initially presented to [facility] with a fever of 101.5 mild tachycardia and WBC of 10.5. Coarse rhonchi on lung examination. Chest x-ray showed right lower lobe infiltrate concerning for pneumonia. Of note patient was admitted in June for HCAP as well. Will admit for healthcare associated pneumonia plus or minus COPD exacerbation as well as acute on chronic hypoxic respiratory failure. We will continue broad-spectrum antibiotics for healthcare associated pneumonia. We will treat for possible COPD exacerbation. Patient currently stable from a respiratory standpoint.
[2018-09-30 07:48] LABS: Basophils % 0.1 %; Hematocrit 31.3 % (37.5-50.1); Hemoglobin 9.7 g/dL (12.9-16.9); Lymphocytes # 0.2 K/mcL (0.6-4.6); Lymphocytes % 0.9 %; Mean Corpuscular Hemoglobin 29.8 pg (28.0-33.3); Mean Corpuscular Volume 96.3 fL (83.0-100.0); Mean Platelet Volume 9.3 fL (9.4-12.4); Monocytes # 0.5 K/mcL (0.0-1.3); Monocytes % 2.8 %; Platelet Count 226 K/mcL (140-400); Red Blood Count 3.25 M/mcL (4.19-5.50); Red Cell Distribution Width 14.2 % (11.5-14.5); Segmented Neutrophils % 95.2 %
[2018-09-30 07:51] LABS: Neutrophils # 16.5 K/mcL (1.6-8.9)
[2018-09-30 07:52] LABS: Platelet Estimate Normal (Normal)
[2018-09-30 08:05] LABS: Albumin 3.3 g/dL (3.5-5.7); Bilirubin,Total 0.4 mg/dL (0.3-1.0); Calcium 8.7 mg/dL (8.6-10.3); Globulin 3.2 g/dL (2.4-3.5); Total Protein 6.5 g/dL (6.4-8.9)
[2018-09-30] MEDS: Aspirin Enteric Coated 81 MG Tablet PO SCH (08:12)
[2018-09-30] MEDS: traMADol 50 MG TABLET PO SCH ×2 (08:12→21:15)
[2018-09-30] MEDS: Piperacillin/Tazobactam 3.375 GM in 0.9 % Sodium Chloride Mini Bag 100 ML IVPB SCH ×3 (08:12→23:58)
[2018-09-30] MEDS: Insulin LISPRO 300 UNITS/3 ML VIAL SQ SCH ×4 (08:13→16:41)
[2018-09-30] MEDS: Ipratropium/Albuterol Neb 3 ML IH SCH ×5 (08:51→23:54)
[2018-09-30 09:22] LABS: Troponin I 0.06 ng/mL (< 0.04)
[2018-09-30] MEDS ORDERED: MethylPREDNISolone 40 MG/ML VIAL IVP SCH (12:00)
[2018-09-30] MEDS: Gabapentin 300 MG CAPSULE PO SCH ×2 (12:27→21:15)
--- NOTE | 2018-09-30 13:31 | Event Note ---
Date of Encounter: 09/30/18 Time of Encounter: 13:29 H&P reviewed. patient hemodynamically stable. will continue with broad spectrum IV antibiotics IV steroids decreased to 40mg/IV BID continue bronchodilators IV fluids x2 bags total. Will recheck BMP tomorrow morning will continue to follow up.
[2018-09-30] MEDS: MethylPREDNISolone 40 MG/ML VIAL IVP SCH (16:41)
[2018-09-30] MEDS ORDERED: Insulin LISPRO 300 UNITS/3 ML VIAL SQ ONE ×2 (17:49→18:57)
[2018-09-30] MEDS: Insulin DETEMIR 100 UNIT/ML X5UNITS SQ SCH (21:15)
[2018-10-01] MEDS: Ipratropium/Albuterol Neb 3 ML IH SCH ×5 (04:12→20:26)
[2018-10-01] MEDS: *HR* Heparin 5,000 UNIT/ML VIAL SQ SCH ×3 (05:23→20:57)
[2018-10-01] MEDS: MethylPREDNISolone 40 MG/ML VIAL IVP SCH ×2 (05:24→17:01)
[2018-10-01 07:55] LABS: Basophils % 0.1 %; Hematocrit 29.8 % (37.5-50.1); Hemoglobin 9.1 g/dL (12.9-16.9); Immature Granulocytes % 0.6 % (0-4); Lymphocytes # 0.3 K/mcL (0.6-4.6); Lymphocytes % 1.5 %; Mean Corpuscular HGB Conc 30.5 g/dL (31.6-35.5); Mean Corpuscular Hemoglobin 29.2 pg (28.0-33.3); Mean Corpuscular Volume 95.5 fL (83.0-100.0); Mean Platelet Volume 9.5 fL (9.4-12.4); Monocytes # 0.6 K/mcL (0.0-1.3); Monocytes % 3.4 %; Neutrophils # 16.5 K/mcL (1.6-8.9); Platelet Count 238 K/mcL (140-400); Red Blood Count 3.12 M/mcL (4.19-5.50); Red Cell Distribution Width 13.9 % (11.5-14.5); Segmented Neutrophils % 94.4 %
[2018-10-01 08:05] LABS: Bilirubin,Urine Negative (Negative); Blood,Urine Moderate (Negative); Clarity,Urine Turbid (Clear); Color,Urine Yellow (Yellow); Glucose,Urine (UA) 250 mg/dL (Normal); Ketones,Urine Negative (Negative); Leukocyte Esterase,Urine Small (Negative); Nitrite,Urine Negative (Negative); Protein,Urine 100 mg/dL (Neg-Trace); Specific Gravity,Urine 1.024 (1.010-1.025); Urobilinogen,Urine Normal (Normal)
[2018-10-01 08:07] LABS: Bacteria,Urine None Seen per hpf (None-Few); Squamous Epithelial Cell,Urine Many per lpf (None-Few); WBC,Urine 30-50 per hpf (0-3)
[2018-10-01 08:17] LABS: Calcium 8.9 mg/dL (8.6-10.3); Magnesium 1.8 mg/dL (1.6-2.6); Phosphorous 4.8 mg/dL (2.7-4.5); Potassium 4.9 mEq/L (3.5-5.1)
[2018-10-01 08:23] LABS: Triple Phosphate Crystal,Urine Present
[2018-10-01] MEDS: Gabapentin 300 MG CAPSULE PO SCH ×2 (08:29→20:58)
[2018-10-01] MEDS: Insulin LISPRO 300 UNITS/3 ML VIAL SQ SCH ×6 (08:29→17:03)
[2018-10-01] MEDS: traMADol 50 MG TABLET PO SCH ×2 (08:29→20:57)
[2018-10-01] MEDS: Aspirin Enteric Coated 81 MG Tablet PO SCH (08:29)
[2018-10-01] MEDS: Piperacillin/Tazobactam 3.375 GM in 0.9 % Sodium Chloride Mini Bag 100 ML IVPB SCH ×2 (08:30→17:00)
[2018-10-01] MEDS: Insulin DETEMIR 100 UNIT/ML X5UNITS SQ SCH ×2 (08:32→20:56)
[2018-10-01] MEDS ORDERED: Aminoglycoside Consult 1 EACH MC ONE (09:16)
--- NOTE | 2018-10-01 11:50 | Internal Med Progress Note ---
Hospitalist Progress Note - Encounter Date of Encounter: 10/01/18 Time of Encounter: 11:48 - Subjective Interval History: I have seen and evaluated the patient at bedside. patient reports improvement in his shortness of breath. he denies chest pain, nausea or vomiting. denies chest pain. reports dryness of his airways. - Exam Vitals: Temp Pulse Resp BP Pulse Ox 97.9 F 118 18 134/73 91 10/01/18 06:45 10/01/18 06:45 10/01/18 07:35 10/01/18 06:45 10/01/18 07:35 Exam: Vitals: Reviewed General: Alert and oriented x4. In no distress Cardiovascular: Irregularly irregular, normal S1 & S2, no rubs, murmurs or gallops. Lungs: mild scattered b/l expiratory wheezes, no crackles. Abdomen: Soft, non-tender, no rigidity. Extremities: No deformity, no edema or tenderness, no joint swelling or clubbing. Neurological: Normal cognition and motor skills. Rest of the physical exam is non contributory - Assessment and Plan (1) HCAP (healthcare-associated pneumonia) Current Visit: No Status: Acute Assessment and Plan: Continue broad-spectrum IV antibiotics. Patient is on vancomycin per pharmacy protocol and Piperacillin/tazobactam 3.375mg/IV Q8HRs. sputum culture ordered, pending discontinue levofloxacin urine for atypical organism negative blood culture: no growth, pending final report (2) Acute and chronic respiratory failure Current Visit: Yes Status: Acute Assessment and Plan: patient reports feeling less short of breath. continue bronchodilators Q4RT. will resume symbicort and siungular. Home medications Continue methylprednisolone 40 mg IV twice a day. Continue oxygen by nasal cannula, titrate for O2 sat duration more than 88%. (3) Atrial fibrillation Current Visit: Yes Status: Chronic Assessment and Plan: patient denies Hx of A.fib in the past. will start patient on metoprolol 50mg/PO daily. on Aspirin 81mg/PO daily. [id number] score 3. 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 Serial trops ordered. (4) COPD exacerbation Current Visit: Yes Status: Acute Assessment and Plan: Plan of care as per problem #1. (5) Chronic kidney disease, stage 3 Current Visit: No Status: Chronic Assessment and Plan: Kidney function at baseline. Avoid nephrotoxic medication. (6) DMII (diabetes mellitus, type 2) Current Visit: No Status: Chronic Assessment and Plan: Blood sugars suboptimally controlled, likely secondary to high-dose IV steroids. Increase lispro to 6 units before meals, continue lispro low-dose sliding scale before meals. increase levemir to 15 units BID. carbs controlled diet. (7) HLD (hyperlipidemia) Current Visit: Yes Status: Chronic Assessment and Plan: We will resume atorvastatin 40 mg by mouth at bedtime, home dose. DVT Prophylaxis: On heparin subq - Summary of Assessment and Plan Summary of Assessment and Plan: patient to remain in the hospital due to pneumonia/HCAP on broad spectrum IV antibiotics - Time Spent with Patient Total time spent is greater than 50% in coordination of care (as documented) at patient's floor/unit and/or counseling patient: Greater than 35 minutes (40) Plan of Care Discussed with: patient (and the nurse) Internal Medicine: Result - Labs CBC & Chem 7: 10/01/18 07:45 10/01/18 07:45 Labs: Short CBC 10/01/18 Range/Units 07:45 WBC 17.4 H (4.3-11.1) K/mcL Hgb 9.1 L (12.9-16.9) g/dL Hct 29.8 L (37.5-50.1) % Plt Count 238 (140-400) K/mcL Neutrophils # 16.5 H (1.6-8.9) K/mcL BMP 10/01/18 07:45 Sodium 134 L Potassium 4.9 Chloride 100 Carbon Dioxide 23 BUN 47 H Creatinine 2.01 H Glucose 323 H Calcium 8.9 Urine 10/01/18 Range/Units 06:15 Urine Color Yellow (Yellow) Urine Clarity Turbid A (Clear) Urine pH 5.0 (5.0-8.0) pH Units Ur Specific [place] 1.024 (1.010-1.025) Urine Protein 100 H (Neg-Trace) mg/dL Urine Glucose (UA) 250 H (Normal) mg/dL Consult Discharge Plan - Plan [facility]errals: [facility] [Primary Care Provider] - (2) Acute and chronic respiratory failure Qualifiers: Respiratory failure complication: hypoxia Qualified Code(s): J96.21 - Acute and chronic respiratory failure with hypoxia (3) Atrial fibrillation Qualifiers: Atrial fibrillation type: chronic Qualified Code(s): I48.2 - Chronic atrial fibrillation (6) DMII (diabetes mellitus, type 2) Qualifiers: Diabetes mellitus alf insulin use: without alf use Diabetes m ellitus complication status: with kidney complications Chronic kidney disease stage: stage 3 (moderate) (7) HLD (hyperlipidemia) Qualifiers: Hyperlipidemia type: unspecified Qualified Code(s): E78.5 - Hyperlipidemia, unspecified
[2018-10-01 11:54] LABS: INR 1.1; Prothrombin Time 12.6 Seconds (9.4-12.1)
[2018-10-01 11:57] LABS: Activated Partial Thrombo Time 27.2 Seconds (26.0-36.0)
[2018-10-01] MEDS: Metoprolol XL (24 HR) Succ 50 MG TAB.ER.24H PO SCH (12:28)
[2018-10-01] MEDS ORDERED: Acetaminophen 325 MG TABLET PO PRN (15:08)
[2018-10-01] MEDS: GuaiFENesin/Dextromethorphan TABLET PO PRN (16:58)
[2018-10-01] MEDS: Budesonide/Formoterol 160/4.5 1 PUFF INH IH SCH (20:26)
[2018-10-02] MEDS: Piperacillin/Tazobactam 3.375 GM in 0.9 % Sodium Chloride Mini Bag 100 ML IVPB SCH ×3 (00:09→17:16)
[2018-10-02] MEDS: Ipratropium/Albuterol Neb 3 ML IH SCH ×6 (00:58→20:08)
[2018-10-02] MEDS: *HR* Heparin 5,000 UNIT/ML VIAL SQ SCH ×2 (05:52→21:24)
[2018-10-02] MEDS: MethylPREDNISolone 40 MG/ML VIAL IVP SCH (05:52)
[2018-10-02] MEDS: GuaiFENesin/Dextromethorphan TABLET PO PRN (05:52)
[2018-10-02 06:26] LABS: Basophils % 0.1 %; Hemoglobin 9.4 g/dL (12.9-16.9); Immature Granulocytes % 0.8 % (0-4); Lymphocytes # 0.3 K/mcL (0.6-4.6); Lymphocytes % 1.7 %; Mean Corpuscular HGB Conc 30.3 g/dL (31.6-35.5); Mean Corpuscular Hemoglobin 29.4 pg (28.0-33.3); Mean Corpuscular Volume 96.9 fL (83.0-100.0); Mean Platelet Volume 9.5 fL (9.4-12.4); Monocytes # 0.7 K/mcL (0.0-1.3); Monocytes % 3.8 %; Neutrophils # 16.7 K/mcL (1.6-8.9); Nucleated Red Blood Cells 0.1 /100 WBC (0); Platelet Count 277 K/mcL (140-400); Segmented Neutrophils % 93.6 %
[2018-10-02 06:45] LABS: Calcium 9.1 mg/dL (8.6-10.3); Phosphorous 4.9 mg/dL (2.7-4.5); Potassium 4.7 mEq/L (3.5-5.1)
[2018-10-02] MEDS: Budesonide/Formoterol 160/4.5 1 PUFF INH IH SCH ×2 (07:39→20:08)
[2018-10-02] MEDS: traMADol 50 MG TABLET PO SCH (08:25)
[2018-10-02] MEDS: Insulin DETEMIR 100 UNIT/ML X5UNITS SQ SCH ×2 (08:25→21:25)
[2018-10-02] MEDS: Aspirin Enteric Coated 81 MG Tablet PO SCH (08:25)
[2018-10-02] MEDS: Metoprolol XL (24 HR) Succ 50 MG TAB.ER.24H PO SCH (08:25)
[2018-10-02] MEDS: Gabapentin 300 MG CAPSULE PO SCH ×2 (08:25→21:25)
[2018-10-02] MEDS: Insulin LISPRO 300 UNITS/3 ML VIAL SQ SCH ×6 (08:26→17:17)
[2018-10-02] MEDS ORDERED: Acetaminophen 325 MG TABLET PO PRN (08:50)
[2018-10-02] MEDS ORDERED: Levofloxacin 750 MG/150 ML 750 MG/150 ML BAG IVPB SCH (09:00)
--- NOTE | 2018-10-02 09:57 | Electrocardiograph Report ---
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
--- NOTE | 2018-10-02 10:15 | Electrocardiograph Report ---
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
--- NOTE | 2018-10-02 10:53 | Internal Med Progress Note ---
Hospitalist Progress Note - Encounter Date of Encounter: 10/02/18 Time of Encounter: 10:51 - Subjective Interval History: I have seen and evaluated the patient at bedside. Patient reports his breathing continues to improve. denies shortness of breath. denies chest pain. denies abdominal pain or loose stool. - Exam Vitals: Temp Pulse Resp BP Pulse Ox 97.9 F 77 18 132/72 91 10/02/18 07:41 10/02/18 07:41 10/02/18 07:52 10/02/18 07:41 10/02/18 07:52 Exam: Vitals: Reviewed General: Alert and oriented x4. In no distress Cardiovascular: Irregularly irregular, normal S1 & S2, no rubs, murmurs or gallops. Lungs: No wheezes, or crackles. rales LL lobe Abdomen: Soft, non-tender, no rigidity. NABS in all 4 quadrants Extremities: 1+ pitting edema. Neurological: No focal neurological abnormality. Rest of the physical exam is non contributory - Assessment and Plan (1) HCAP (healthcare-associated pneumonia) Current Visit: No Status: Acute Assessment and Plan: Plan: Discontinue vancomycin Continue Piperacillin/tazobactam 3.375mg/IV Q8HRs. sputum culture ordered, pending urine for atypical organism negative blood culture: no growth, pending final report (2) Acute and chronic respiratory failure Current Visit: Yes Status: Resolved Assessment and Plan: Patient no respiratory distress. Saturating more than 95% on 2 L of oxygen by nasal cannula. No wheezing auscultation. Plan Discontinue IV steroids Started on prednisone 40 mg by mouth daily. Continue Symbicort and Singulair On bronchodilators every 4 hours as scheduled. Incentive spirometry. (3) COPD exacerbation Current Visit: Yes Status: Resolved Assessment and Plan: Plan of care as above. (4) Chronic kidney disease, stage 3 Current Visit: No Status: Chronic Assessment and Plan: Slightly worsening kidney function likely secondary to vancomycin, trough elevated. Vancomycin discontinue We will reassess kidney function tomorrow morning. Gentle IV hydration with LR @75ml/hr 500 ml x1 (5) DMII (diabetes mellitus, type 2) Current Visit: No Status: Chronic Assessment and Plan: Blood sugar suboptimally controlled. Increase Levemir to 20 units twice a day. And lispro 8 units before meals. Continue lispro low-dose sliding scale before meals. Carbs controlled diet. (6) HLD (hyperlipidemia) Current Visit: Yes Status: Chronic Assessment and Plan: Continue atorvastatin 40 mg daily at bedtime. (7) Hypertension Current Visit: Yes Status: Chronic Assessment and Plan: Blood pressure is well controlled. Continue metoprolol 50 mg by mouth daily. (8) Lung cancer Current Visit: No Status: Chronic Assessment and Plan: patient with recent chemotherapy infusion. chemotherapy port will be investigated today for concern of malfunctioning. DVT Prophylaxis: Continue heparin subcutaneous. - Summary of Assessment and Plan Summary of Assessment and Plan: Patient to remain in the hospital due to TEE on CKD. HCAP on broad spectrum IV antibiotics. - Time Spent with Patient Total time spent is greater than 50% in coordination of care (as documented) at patient's floor/unit and/or counseling patient: Greater than 35 minutes (40) Plan of Care Discussed with: patient (and the nurse.) Internal Medicine: Result - Labs CBC & Chem 7: 10/02/18 06:10 10/02/18 06:10 Labs: Short CBC 10/02/18 Range/Units 06:10 WBC 17.8 H (4.3-11.1) K/mcL Hgb 9.4 L (12.9-16.9) g/dL Hct 31.0 L (37.5-50.1) % Plt Count 277 (140-400) K/mcL Neutrophils # 16.7 H (1.6-8.9) K/mcL BMP 10/02/18 06:10 Sodium 136 Potassium 4.7 Chloride 102 Carbon Dioxide 24 BUN 60 H Creatinine 2.57 H Glucose 295 H Calcium 9.1 Cardiac Enzymes 10/01/18 Range/Units 11:07 Troponin I 0.06 H* (< 0.04) ng/mL - ABG Interpretation ABG results: PT/INR, D-dimer PT 12.6 Seconds (9.4-12.1) H 10/01/18 11:07 Consult Discharge Plan - Plan Referrals: [facility],PC[facility] [Primary Care Provider] - (2) Acute and chronic respiratory failure Qualifiers: Respiratory failure complication: hypoxia Qualified Code(s): J96.21 - Acute and chronic respiratory failure with hypoxia (5) DMII (diabetes mellitus, type 2) Qualifiers: Diabetes mellitus terminal carman insulin use: without terminal carman use Diabetes mellitus complication status: with kidney complications Chronic kidney disease stage: stage 3 (moderate) Qualified Code(s): E11.22 - Type 2 diabetes mellitus with diabetic chronic kidney disease; N18.3 - Chronic kidney disease, stage 3 (moderate) (6) HLD (hyperlipidemia) Qualifiers: Hyperlipidemia type: unspecified Qualified Code(s): E78.5 - Hyperlipidemia, unspecified (7) Hypertension Qualifiers: Hypertension type: unspecified Qualified Code(s): I10 - Essential (primary) hypertension (8) Lung cancer Qualifiers: Laterality: right Lung location: lower lobe of lung Qualified Code(s): C34.31 - Malignant neoplasm of lower lobe, right bronchus or lung
[2018-10-02] MEDS ORDERED: Ringers Solution, Lactated 500 ML IVC SCH (11:00)
[2018-10-02] MEDS ORDERED: Insulin LISPRO 300 UNITS/3 ML VIAL SQ SCH (12:00)
[2018-10-02] MEDS: predniSONE 20 MG TABLET PO SCH (12:22)
[2018-10-03] MEDS: Piperacillin/Tazobactam 3.375 GM in 0.9 % Sodium Chloride Mini Bag 100 ML IVPB SCH ×3 (00:48→17:55)
[2018-10-03] MEDS: Ipratropium/Albuterol Neb 3 ML IH SCH ×7 (03:34→23:40)
[2018-10-03] MEDS: *HR* Heparin 5,000 UNIT/ML VIAL SQ SCH ×2 (05:38→17:54)
[2018-10-03] MEDS: Insulin LISPRO 300 UNITS/3 ML VIAL SQ SCH ×7 (07:29→17:59)
[2018-10-03] MEDS: Budesonide/Formoterol 160/4.5 1 PUFF INH IH SCH ×2 (07:33→19:58)
[2018-10-03 08:37] LABS: Basophils % 0.2 %; Hematocrit 30.6 % (37.5-50.1); Hemoglobin 9.3 g/dL (12.9-16.9); Immature Granulocytes % 1.4 % (0-4); Lymphocytes # 0.6 K/mcL (0.6-4.6); Lymphocytes % 4.4 %; Mean Corpuscular HGB Conc 30.4 g/dL (31.6-35.5); Mean Corpuscular Hemoglobin 29.1 pg (28.0-33.3); Mean Corpuscular Volume 95.6 fL (83.0-100.0); Mean Platelet Volume 9.3 fL (9.4-12.4); Monocytes # 0.9 K/mcL (0.0-1.3); Monocytes % 7.2 %; Neutrophils # 11.3 K/mcL (1.6-8.9); Nucleated Red Blood Cells 0.2 /100 WBC (0); Platelet Count 270 K/mcL (140-400); Red Cell Distribution Width 14.1 % (11.5-14.5); Segmented Neutrophils % 86.8 %
[2018-10-03 08:55] LABS: Calcium 9.2 mg/dL (8.6-10.3); Phosphorous 3.7 mg/dL (2.7-4.5); Potassium 4.7 mEq/L (3.5-5.1)
[2018-10-03] MEDS: predniSONE 20 MG TABLET PO SCH (08:56)
[2018-10-03] MEDS: Gabapentin 300 MG CAPSULE PO SCH ×2 (08:56→21:16)
[2018-10-03] MEDS: Aspirin Enteric Coated 81 MG Tablet PO SCH (08:57)
[2018-10-03] MEDS: Insulin DETEMIR 100 UNIT/ML X5UNITS SQ SCH ×2 (08:57→21:17)
[2018-10-03] MEDS: Metoprolol XL (24 HR) Succ 50 MG TAB.ER.24H PO SCH (08:57)
[2018-10-03] MEDS ORDERED: Heparin 1,000 UNITS/500 mL 500 ML ONE (09:39)
--- NOTE | 2018-10-03 10:25 | IR Procedure Note ---
Date of procedure: 10/03/18 Consent Obtained: Written consent Timeout: Correct patient and procedure verified, Time out performed, Skin prep completed Local anesthetic: Lidocaine 1% Indications: Skin breakdown, exposed mediport Procedure Performed: mediport removal Was there an land surveyor assistant present: No Results/Findings: succesfful removal mediport Estimated blood loss (cc): 0 Complications: None; Tolerated procedure well Post Procedure Treatment Plan: monitor on floor Specimen: none
--- NOTE | 2018-10-03 11:26 | Internal Med Progress Note ---
Hospitalist Progress Note - Encounter Date of Encounter: 10/03/18 Time of Encounter: 11:17 - Subjective Interval History: I have seen and evaluated the patient following the port removal. patient awake, in no distress. reports improvement in this breathing. denies shortness of breath, denies nausea or vomiting. denies abdominal pain. - Exam Vitals: Temp Pulse Resp BP Pulse Ox 98.2 F 71 20 140/73 93 10/03/18 10:47 10/03/18 10:47 10/03/18 10:47 10/03/18 10:47 10/03/18 10:47 Exam: Vitals: Reviewed General: Alert and oriented x4. In no distress Cardiovascular: Irregularly irregular, normal S1 & S2, no rubs, murmurs or gallops. Lungs: No wheezes, or crackles. rales RL lobe Abdomen: Soft, non-tender, no rigidity. NABS in all 4 quadrants Extremities: 1+ pitting edema. Neurological: No focal neurological abnormality. Rest of the physical exam is non contributory - Assessment and Plan (1) HCAP (healthcare-associated pneumonia) Current Visit: No Status: Acute Assessment and Plan: organism unspecified Plan: Sputum culture: not collected. continue one more day of IV Piperacillin/tazobactam 3.375mg/IV Q8HRs. urine for atypical organism negative blood culture: no growth, pending final report (2) Acute and chronic respiratory failure Current Visit: Yes Status: Resolved Assessment and Plan: patient respiratory status improving. Treated for pneumonitis at the end of August beginning of September. Patient O2 requirements is back to his baseline. On prednisone 40mg/PO daily continue symbicort and singular On bronchodilators Q4RT scheduled. (3) COPD exacerbation Current Visit: Yes Status: Resolved Assessment and Plan: plan of care as above. (4) DMII (diabetes mellitus, type 2) Current Visit: No Status: Chronic Assessment and Plan: blood sugar sub-optimally controlled. increase levemir to 23 units BID, continue lispro 8 units and lispro low dose sliding scale ac. (5) HLD (hyperlipidemia) Current Visit: Yes Status: Chronic Assessment and Plan: On atorvastatin 40 mg daily at bedtime. (6) Hypertension Current Visit: Yes Status: Chronic Assessment and Plan: Blood pressure is well controlled. patient is on metoprolol 50mg/PO daily. 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 (PET/CT 12/28/2017 revealed resolution of the 2 pulmonary lesions. PET/CT findings also raise concern of possible esophageal lesion.) chemoradiotherapy with weekly Carboplatin/Paclitaxel completed 02/17/2018 Adjuvant durvalumab x 10 cycles 03/17/2018-08/21/2018. Stopped secondary to pneumonitis Hem&Onc consulted. patient chemotherapy port removed tip sent for culture. port removed from the anterior right upper chest. (8) [id number] kidney injury Current Visit: Yes Status: Acute Assessment and Plan: kidney function slightly improving. Off vancomycin. will continue to re-assess kidney function in the morning DVT Prophylaxis: On heparin subq - Summary of Assessment and Plan Summary of Assessment and Plan: patient to remain in the hospital for 24 more hours to continue monitoring kidney function. potential discharge tomorrow. - Time Spent with Patient Total time spent is greater than 50% in coordination of care (as documented) at patient's floor/unit and/or counseling patient: Greater than 35 minutes (40) Plan of Care Discussed with: patient (and the nurse.) Internal Medicine: Result - Labs CBC & Chem 7: 10/03/18 08:26 10/03/18 08:26 Labs: Short CBC 10/03/18 Range/Units 08:26 WBC 13.0 H (4.3-11.1) K/mcL Hgb 9.3 L (12.9-16.9) g/dL Hct 30.6 L (37.5-50.1) % Plt Count 270 (140-400) K/mcL Neutrophils # 11.3 H (1.6-8.9) K/mcL BMP 10/03/18 08:26 Sodium 137 Potassium 4.7 Chloride 104 Carbon Dioxide 27 BUN 71 H Creatinine 2.40 H Glucose 231 H Calcium 9.2 - ABG Interpretation ABG results: PT/INR, D-dimer PT 12.6 Seconds (9.4-12.1) H 10/01/18 11:07 Consult Discharge Plan - Plan [facility]errals: [facility] [Primary Care Provider] - (2) Acute and chronic respiratory failure Qualifiers: Respiratory failure complication: hypoxia Qualified Code(s): J96.21 - Acute and chronic respiratory failure with hypoxia (4) DMII (diabetes mellitus, type 2) Qualifiers: Diabetes mellitus senior living insulin use: without senior living use Diabetes mellitus complication status: with kidney complications Chronic kidney disease stage: stage 3 (moderate) (5) HLD (hyperlipidemia) Qualifiers: Hyperlipidemia type: unspecified Qualified Code(s): E78.5 - Hyperlipidemia, unspecified (6) Hypertension Qualifiers: Hypertension type: unspecified Qualified Code(s): I10 - Essential (primary) hypertension (7) Lung cancer Qualifiers: Laterality: right Lung location: lower lobe of lung Qualified Code(s): C34.31 - Malignant neoplasm of lower lobe, right bronchus or lung (8) [id number] kidney injury Qualifiers: Acute renal failure type: unspecified Chronic kidney disease stage: stage 3 (moderate) Qualified Code(s): N17.9 - Acute kidney failure, unspecified; N18.3 - Chronic kidney disease, stage 3 (moderate)
[2018-10-03] MEDS ORDERED: Ringers Solution, Lactated 500 ML IVC SCH (11:30)
[2018-10-03] MEDS ORDERED: D5% in Lactated Ringers 1,000 ML IVC SCH (16:30)
[2018-10-03 16:40] LABS: ABG Base Excess 0 mEq/L (-2 to 3); ABG HCO3 28 mEq/L (21-27); ABG Oxygen Saturation 90 % (95-98); ABG PCO2 60 mmHg (35-45); ABG PH 7.28 pH Units (7.32-7.45); ABG PO2 69 mmHg (85-104); ABG TCO2 30 mEq/L (20-26)
--- NOTE | 2018-10-03 16:49 | Oncology Inp Consult Note ---
<Dago Gallardo - Last Filed: 10/03/18 17:04> Date of Encounter: 10/03/18 Time of Encounter: 17:04 - Data of Consult Requesting Physician: Eliud Castro MD Primary Care Provider: PCP OR Medications and Allergies Acetaminophen [Tylenol] 650 mg PO QPM 10/27/17 [History] Aspirin Enteric Coated [Aspirin EC] 81 mg PO DAILY 10/27/17 [History] Cholecalciferol (D-3) [Vitamin D] 4,000 unit PO DAILY 10/27/17 [History] DULoxetine [Cymbalta] 30 mg PO BID 10/27/17 [History] Cyanocobalamin (Vitamin B-12) [Vitamin B-12] 1,000 mcg PO Q48H 12/21/17 [History] Lidocaine/Prilocaine [Emla] 1 appl TP DAILY #30 gm 01/02/18 [Rx] Bisacodyl [Dulcolax] 5 mg PO DAILY PRN #30 tablet 04/28/18 [Rx] GuaiFENesin/Dextromethorphan [Robitussin/Dm] 5 ml PO Q6HR PRN #240 ml 04/28/18 [Rx] Budesonide/Formoterol 160/4.5 [Symbicort 160/4.5] 2 puff IH BID #1 hfa.aer.ad 06/09/18 [Rx] Pantoprazole Sodium [Protonix] 40 mg PO DAILY 06/19/18 [History] Ondansetron HCl [Zofran] 4 mg PO TID PRN 06/27/18 [History] Tramadol HCl [Ultram] 50 mg PO BID PRN 06/27/18 [History] Insulin ASPART [Novolog Flexpen] 0 unit SQ TIDAC PRN 09/25/18 [History] Insulin Glargine,Hum.rec.anlog [Lantus Solostar] 14 unit SQ HS 09/25/18 [History] Montelukast [Singulair] 10 mg PO DAILY 09/25/18 [History] Acetaminophen [Tylenol] 325 mg PO QAM 09/30/18 [History] Albuterol Sulfate [Albuterol Inhaler] 2 puff IH QID PRN 09/30/18 [History] Atorvastatin Calcium [Lipitor] 40 mg PO QPM 09/30/18 [History] Chlorhex Gl/Glycerin/He-Cell [Lubricating Jelly] 1 appl TP AD 09/30/18 [History] Gabapentin [Neurontin] 600 mg PO BID 09/30/18 [History] Povidone-Iodine 1 each TP AD PRN 09/30/18 [History] Propylene Glycol/Peg 400 [Systane 0.3-0.4% Eye Drops] 1 drop BOTH EYES DAILY PRN 09/30/18 [History] Tiotropium [place] [Spiriva Respimat] 2 puff IH DAILY 09/30/18 [History] Allergy/AdvReac Type Severity Reaction Status Date / Time Cyclobenzaprine Allergy See Verified 09/25/18 13:37 Comments methocarbamol Allergy See Verified 09/25/18 13:37 Comments doxazosin AdvReac See Verified 09/25/18 13:37 Comments Consult Discharge Plan - Plan [facility]errals: [facility] [Primary Care Provider] - Inpatient Charges Provider: Dr. Nicholas Gallardo Consult - Inpatient: [id number] - Attending Attestation I examined this patient and my medical decision-making was reviewed with the Advanced Practice Nurse. I agree with the documented findings, disposition and treatment plan as described except to the extent set forth below. -Stage IIIA squamous cell carcinoma of the lung s/p chemoradiation and 10 cycles of durvalumab. Durvalumab stopped due to pneumonitis. 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 He was on on adjuvant durvalumab x 10 cycles 03/17/2018-08/21/2018 which was subsequently stopped secondary to pneumonitis. CT of the chest without contrast reveals: 1. Worsening consolidation and volume loss throughout the right lung with obstruction of the right upper lobe bronchi and right interlobar bronchus. It is difficult to assess if this is related to soft tissue mass versus mucoid impaction given respiratory motion artifact. There is also increasing partially loculated moderate right pleural effusion. There is a focus of gas within the right lower lobe which may be related to infection or loculated pneumothorax. 2. Slight interval increase in size of a right paratracheal lymph node. Overall, there appears to be increased soft tissue prominence in the right hilum when compared to the prior exam. These findings raise suspicion for progression of malignancy. 3. Indeterminate 12 mm ground-glass nodule in the lingula. Trace left pleural effusion with patchy consolidative and ground-glass opacities in the left lung, likely infectious or inflammatory in etiology. Attention on follow-up exams is recommended. Plan: CT imaging concerning for infectious vs. malignant etiology S/P bronchoscopy during admission at [facility] end august/September was without significant findings according to most recent office note During assessment, he was altered and confused which is change from baseline, hospitalist was paged stat and ABG obtained with findings of hypercapnic hypoxic respiratory failure Pulmonology consulted for further recommendations and for consideration of bronchoscopy/thoracentesis Qualifiers: Laterality: right Lung location: lower lobe of lung Qualified Code(s): C34.31 - Malignant neoplasm of lower lobe, right bronchus or lung - Data of Consult Patient: known to practice within the last 3 years Consult date: 10/03/18 Requesting Physician: Eliud Castro MD Primary Care Provider: PCP OR - Consult Narrative Reason for consult: squamous cell carcinoma of the right lower lobe of the lung History of present illness: Mr. 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 Prior therapy includes: 1. Concurrent chemoradiotherapy with weekly Carboplatin/Paclitaxel completed 02/17/2018 with curative intent 2. Adjuvant durvalumab x 10 cycles 03/17/2018-08/21/2018. Stopped secondary to pneumonitis At his last visit with Dr. Mc he was most recently admitted to [facility] end august through september for Pneumonia. He was intubated for a short period of time. Bronchoscopy was performed. No offending organism could be identified. 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 He is been placed on Spiriva and Singulair in addition to Symbicort. Most recently, he presented to [facility] ED with complaints of shortness of breath and chills. At [facility] he had a fever 101.5 tachycardia of 105, respiratory rate of 16 and was requiring 4 L of oxygen by nasal cannula. He has been admitted with sepsis, HCAP and COPD exacerbation. 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 Psychiatric history: depression - Past Surgical History Additional surgical history: back sx x 3. - Social History Smoking Status: Former smoker Smokeless Tobacco Status: No Alcohol use: none Drug use: none - Family History Mother Hx Family Neuromuscular Disorders: Yes (Parkinsons) ROS unobtainable: due to mental status Oncology - Exam - Constitutional General appearance: cooperative, no febrile Exam: mild distress, confused - Head Head exam: Present: atraumatic - ENT ENT exam: Present: mucous membranes moist, normal oropharynx - Respiratory Respiratory exam: Present: decreased breath sounds, rhonchi. Absent: respiratory distress - Cardiovascular Cardiovascular exam: Present: RRR, tachycardia - GI/Abdominal GI/Abdominal exam: Present: normal bowel sounds, soft. Absent: tenderness - Extremities Exam Extremities exam: Present: normal inspection. Absent: calf tenderness - Neurological Exam Neurological exam: Present: altered, no focal deficits - Psychiatric Psychiatric exam: Present: normal mood - Skin Skin exam: Present: dry, normal color, warm
[2018-10-03] MEDS ORDERED: D5% in 0.9% NACL 1,000 ML IVC SCH (17:00)
[2018-10-03] MEDS: MethylPREDNISolone 40 MG/ML VIAL IVP SCH (17:54)
[2018-10-03] MEDS: D5% in 0.9% NACL 1,000 ML IVC SCH (17:59)
[2018-10-03 18:05] LABS: Basophils % 0.1 %; Hematocrit 31.3 % (37.5-50.1); Hemoglobin 9.7 g/dL (12.9-16.9); Immature Granulocytes % 1.8 % (0-4); Lymphocytes # 0.4 K/mcL (0.6-4.6); Lymphocytes % 2.9 %; Mean Corpuscular Hemoglobin 29.3 pg (28.0-33.3); Mean Corpuscular Volume 94.6 fL (83.0-100.0); Mean Platelet Volume 9.4 fL (9.4-12.4); Monocytes # 0.5 K/mcL (0.0-1.3); Monocytes % 3.6 %; Neutrophils # 12.3 K/mcL (1.6-8.9); Platelet Count 252 K/mcL (140-400); Red Blood Count 3.31 M/mcL (4.19-5.50); Red Cell Distribution Width 14.3 % (11.5-14.5); Segmented Neutrophils % 91.6 %
[2018-10-03 18:21] LABS: ABG Base Excess 1 mEq/L (-2 to 3); ABG HCO3 29 mEq/L (21-27); ABG Oxygen Saturation 93 % (95-98); ABG PCO2 61 mmHg (35-45); ABG PH 7.28 pH Units (7.32-7.45); ABG PO2 78 mmHg (85-104); ABG TCO2 30 mEq/L (20-26); Blood Gas PEEP 8 cm H2O; Blood Gas Respiration Rate 8
[2018-10-03 18:38] LABS: Calcium 8.7 mg/dL (8.6-10.3); Potassium 5.2 mEq/L (3.5-5.1)
--- NOTE | 2018-10-03 19:07 | Pulmonology Consult Note ---
Date of Encounter: 10/03/18 Time of Encounter: 08:00 Assessment and Plan (1) Acute respiratory failure Current Visit: Yes Status: Acute Patient acutely developed altered mental status blood gas shows acute hypoxic hypercapnic respiratory failure patient are stable on oxygen supplementation patient in spite of altered mental status patient is able to follow commands patient was started on BiPAP therapy. V/Q mismatch is complicated by right- sided loculated pleural effusion which can be malignant versus parapneumonic. Since it is loculated we will consult interventional radiology for possible ultrasound/CT guided thoracentesis. Pleural fluid should be sent for cytology and other biochemical studies. Patient also has changes of the postobstructive pneumonia versus pneumonitis after immunotherapy will continue with broad- spectrum antibiotics will continue vancomycin renally dosed current Vanco levels are around 19. To continue steroids for pneumonitis after immunotherapy. I had extensive conversation with the family and the patient since patient is altered and spoke with his for the possibility off endotracheal intubation and mechanical ventilation patient it declined that as never wanted invasive ventilatory support patient went all aggressive measures until that point of cardiorespiratory failure. For the patient improves with antibiotic steroids with noninvasive ventilation and he is stable V/Q mismatch patient migh t well benefit from bronchoscopy with airway examination for possible tumor extension around the right upper lobe bronchus patient has a past history of stage III a non-small cell lung cancer looks like a salt tumor progression versus pneumonia patient had a recent bronchoscopy at [place] will get the records. Patient at the moment is high risk for intubation for possible bronchoscopy since patient is acutely ill will hold off the procedure. We will get repeat blood gas and adjust between BiPAP and AVAPS. Qualifiers: Respiratory failure complication: hypoxia and hypercapnia Qualified Code(s): J96.01 - Acute respiratory failure with hypoxia; J96.02 - Acute respiratory failure with hypercapnia (2) HCAP (healthcare-associated pneumonia) Current Visit: No Status: Acute Patient pro calcitonin is high suggestive of bacterial infection in the lung to continue broad-spectrum antibiotics will renally dose of vancomycin. (3) COPD exacerbation Current Visit: Yes Status: Resolved ontinue his scheduled bronchodilators and steroids do not de-escalate the steroids quickly as patient has background changes of possible pneumonitis changes secondary to immunotherapy for non-small cell lung cancer. (4) Lung cancer Current Visit: No Status: Chronic Patient was diagnosed with stage IIIa non-small cell lung cancer supported by radiation and immunotherapy after 10 cycles of chemotherapy patient developed a pneumonitis so therapy was stopped patient had a recent bronchoscopy in [place] did not show any evidence of malignancy. Patient is acutely ill with the acute hypoxic hypercapnic respiratory failure with the possible intubation but patient declined invasive mechanical ventilation and willing to try noninvasive and ventilation patient tells around with the bronchodilator steroids and antibiotics and was stable V/Q mismatch we can proceed with bronchoscopy in the future at this moment patient is too sick for bronchoscopy. Reviewing the images looks like that can be tumor progression and the endobronchial airways patient might benefit from an exam and endobronchial biopsy. We will bring him to the patient with the patient gets stable. 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 Psychiatric history: depression - Past Surgical History Additional surgical history: back sx x 3. - Social History Smoking Status: Former smoker Smokeless Tobacco Status: No Alcohol use: none Drug use: none - Family History Mother Hx Family Neuromuscular Disorders: Yes (Parkinsons) Medications and Allergies Acetaminophen [Tylenol] 650 mg PO QPM 10/27/17 [History] Aspirin Enteric Coated [Aspirin EC] 81 mg PO DAILY 10/27/17 [History] Cholecalciferol (D-3) [Vitamin D] 4,000 unit PO DAILY 10/27/17 [History] DULoxetine [Cymbalta] 30 mg PO BID 10/27/17 [History] Cyanocobalamin (Vitamin B-12) [Vitamin B-12] 1,000 mcg PO Q48H 12/21/17 [History] Lidocaine/Prilocaine [Emla] 1 appl TP DAILY #30 gm 01/02/18 [Rx] Bisacodyl [Dulcolax] 5 mg PO DAILY PRN #30 tablet 04/28/18 [Rx] GuaiFENesin/Dextromethorphan [Robitussin/Dm] 5 ml PO Q6HR PRN #240 ml 04/28/18 [Rx] Budesonide/Formoterol 160/4.5 [Symbicort 160/4.5] 2 puff IH BID #1 hfa.aer.ad 06/09/18 [Rx] Pantoprazole Sodium [Protonix] 40 mg PO DAILY 06/19/18 [History] Ondansetron HCl [Zofran] 4 mg PO TID PRN 06/27/18 [History] Tramadol HCl [Ultram] 50 mg PO BID PRN 06/27/18 [History] Insulin ASPART [Novolog Flexpen] 0 unit SQ TIDAC PRN 09/25/18 [History] Insulin Glargine,Hum.rec.anlog [Lantus Solostar] 14 unit SQ HS 09/25/18 [History] Montelukast [Singulair] 10 mg PO DAILY 09/25/18 [History] Acetaminophen [Tylenol] 325 mg PO QAM 09/30/18 [History] Albuterol Sulfate [Albuterol Inhaler] 2 puff IH QID PRN 09/30/18 [History] Atorvastatin Calcium [Lipitor] 40 mg PO QPM 09/30/18 [History] Chlorhex Gl/Glycerin/He-Cell [Lubricating Jelly] 1 appl TP AD 09/30/18 [History] Gabapentin [Neurontin] 600 mg PO BID 09/30/18 [History] Povidone-Iodine 1 each TP AD PRN 09/30/18 [History] Propylene Glycol/Peg 400 [Systane 0.3-0.4% Eye Drops] 1 drop BOTH EYES DAILY PRN 09/30/18 [History] Tiotropium [place] [Spiriva Respimat] 2 puff IH DAILY 09/30/18 [History] Allergy/AdvReac Type Severity Reaction Status Date / Time Cyclobenzaprine Allergy See Verified 09/25/18 13:37 Comments methocarbamol Allergy See Verified 09/25/18 13:37 Comments doxazosin AdvReac See Verified 09/25/18 13:37 Comments All Systems: The remainder of the systems were reviewed and are negative Physical Examination Vital Signs: Vital Signs, Last 4 Hours Temp Pulse Resp BP Pulse Ox 10/03/18 18:20 20 95 10/03/18 17:21 16 93 10/03/18 16:11 97.6 F 86 18 146/70 91 10/03/18 16:00 18 96 Results - Laboratory Findings CBC and BMP: 10/03/18 17:48 10/03/18 17:48 ABG ABG pH 7.28 pH Units (7.32-7.45) L 10/03/18 18:12 ABG pCO2 61 mmHg (35-45) H 10/03/18 18:12 ABG pO2 78 mmHg (85-104) L 10/03/18 18:12 ABG O2 Saturation 93 % (95-98) L 10/03/18 18:12 PT/INR, D-dimer PT 12.6 Seconds (9.4-12.1) H 10/01/18 11:07 Abnormal lab findings: Abnormal lab results WBC 13.4 K/mcL (4.3-11.1) H 10/03/18 17:48 RBC 3.31 M/mcL (4.19-5.50) L 10/03/18 17:48 Hgb 9.7 g/dL (12.9-16.9) L 10/03/18 17:48 Hct 31.3 % (37.5-50.1) L 10/03/18 17:48 MCHC 31.0 g/dL (31.6-35.5) L 10/03/18 17:48 MPV 9.3 fL (9.4-12.4) L 10/03/18 08:26 12.3 K/mcL (1.6-8.9) H 10/03/18 17:48 0.4 K/mcL (0.6-4.6) L 10/03/18 17:48 Nucleated RBCs/100 WBC 0.2 /100 WBC (0) H 10/03/18 08:26 PT 12.6 Seconds (9.4-12.1) H 10/01/18 11:07 ABG pH 7.28 pH Units (7.32-7.45) L 10/03/18 18:12 ABG pCO2 61 mmHg (35-45) H 10/03/18 18:12 ABG pO2 78 mmHg (85-104) L 10/03/18 18:12 ABG HCO3 29 mEq/L (21-27) H 10/03/18 18:12 ABG Total CO2 30 mEq/L (20-26) H 10/03/18 18:12 ABG O2 Saturation 93 % (95-98) L 10/03/18 18:12 Sodium 134 mEq/L (136-145) L 10/01/18 07:45 Potassium 5.2 mEq/L (3.5-5.1) H 10/03/18 17:48 Chloride 97 mEq/L (98-107) L 09/30/18 07:23 BUN 65 mg/dL (8-23) H 10/03/18 17:48 2.22 mg/dL (0.70-1.30) H 10/03/18 17:48 Est GFR ( Amer) 35 (> 60) L 10/03/18 17:48 Est GFR (Non-Af Amer) 29 (> 60) L 10/03/18 17:48 29 (6-26) H 10/03/18 17:48 Glucose 211 mg/dL (70-105) H 10/03/18 17:48 POC Glucose 179 mg/dL (70-99) H 10/03/18 16:14 313 (280-300) H 10/03/18 17:48 Phosphorus 4.9 mg/dL (2.7-4.5) H 10/02/18 06:10 0.05 ng/mL (< 0.04) H* 10/03/18 17:48 3.3 g/dL (3.5-5.7) L 09/30/18 07:23 1.0 (1.1-2.2) L 09/30/18 07:23 1.59 ng/mL (0.00-0.15) H 10/03/18 17:37 Turbid (Clear) A 10/01/18 06:15 100 mg/dL (Neg-Trace) H 10/01/18 06:15 250 mg/dL (Normal) H 10/01/18 06:15 Moderate (Negative) H 10/01/18 06:15 Ur Leukocyte Esterase Small (Negative) H 10/01/18 06:15 5-15 per hpf (0-3) H 10/01/18 06:15 30-50 per hpf (0-3) H 10/01/18 06:15 Ur Squamous Epith Cells Many per lpf (None-Few) H 10/01/18 06:15 Vancomycin Trough 19 mcg/mL (5-10) H 10/02/18 08:16 - Clinical Findings Intake & Output: Intake & Output 10/03/18 10/03/18 10/03/18 07:59 15:59 23:59 Intake Total 590 / 910 220 / 910 100 / 910 Output Total 550 / 1280 380 / 1280 350 / 1280 Balance 40 / -370 -160 / -370 -250 / -370 Consult Discharge Plan - Plan [facility]errals: [facility] [Primary Care Provider] -
[2018-10-03] MEDS: traMADol 50 MG TABLET PO PRN (21:15)
[2018-10-04] MEDS: Piperacillin/Tazobactam 3.375 GM in 0.9 % Sodium Chloride Mini Bag 100 ML IVPB SCH ×3 (00:06→18:11)
[2018-10-04] MEDS: Insulin LISPRO 300 UNITS/3 ML VIAL SQ SCH ×4 (00:08→18:14)
[2018-10-04 01:44] LABS: Basophils % 0.1 %; Hematocrit 32.3 % (37.5-50.1); Immature Granulocytes % 2.1 % (0-4); Lymphocytes # 0.3 K/mcL (0.6-4.6); Lymphocytes % 2.9 %; Mean Corpuscular Hemoglobin 29.4 pg (28.0-33.3); Mean Platelet Volume 9.2 fL (9.4-12.4); Monocytes # 0.2 K/mcL (0.0-1.3); Monocytes % 2.1 %; Neutrophils # 10.4 K/mcL (1.6-8.9); Platelet Count 259 K/mcL (140-400); Red Cell Distribution Width 14.3 % (11.5-14.5); Segmented Neutrophils % 92.8 %
[2018-10-04 01:59] LABS: Calcium 8.6 mg/dL (8.6-10.3); Phosphorous 4.3 mg/dL (2.7-4.5)
[2018-10-04] MEDS: Ipratropium/Albuterol Neb 3 ML IH SCH ×5 (04:02→20:01)
[2018-10-04] MEDS: *HR* Heparin 5,000 UNIT/ML VIAL SQ SCH ×2 (06:24→18:14)
[2018-10-04] MEDS: MethylPREDNISolone 40 MG/ML VIAL IVP SCH ×2 (06:24→18:14)
[2018-10-04] MEDS: Budesonide/Formoterol 160/4.5 1 PUFF INH IH SCH ×2 (07:46→20:01)
[2018-10-04] MEDS: Metoprolol XL (24 HR) Succ 50 MG TAB.ER.24H PO SCH (09:09)
[2018-10-04] MEDS: Gabapentin 300 MG CAPSULE PO SCH ×2 (09:09→21:50)
[2018-10-04] MEDS: Aspirin Enteric Coated 81 MG Tablet PO SCH (09:10)
--- NOTE | 2018-10-04 10:21 | IR Procedure Note ---
Date of procedure: 10/04/18 Consent Obtained: Verbal consent Timeout: Correct patient and procedure verified, Correct site verified, Time out performed, Skin prep completed Local anesthetic: Lidocaine 1% Indications: ultrasound guided right loculated pleural effusion Was there an butcher assistant present: No Results/Findings: clear yellow fluid. 1.4L drained Estimated blood loss (cc): 0 Complications: None; Tolerated procedure well Specimen: sent
--- NOTE | 2018-10-04 12:13 | Pulmonology Progress Note ---
Date of Encounter: 10/04/18 Time of Encounter: 08:00 Assessment and Plan (1) Acute respiratory failure Current Visit: Yes Status: Acute Patient has acute on chronic respiratory failure complicated by COPD and pneumonia worsening of right-sided malignant squamous cell carcinoma. Patient is okay for bronchoscopy with quick airway exam and possible BAL and bronchopulmonary toileting. Qualifiers: Respiratory failure complication: hypoxia and hypercapnia Qualified Code(s): J96.01 - Acute respiratory failure with hypoxia; J96.02 - Acute respiratory failure with hypercapnia (2) HCAP (healthcare-associated pneumonia) Current Visit: No Status: Acute The cover with broad-spectrum antibiotics (3) COPD exacerbation Current Visit: Yes Status: Acute To continue schedule bronchodilators and steroids. To keep him nothing by mouth after midnight patient is scheduled for bronchoscopy for tomorrow. (4) Lung cancer Current Visit: No Status: Chronic Patient has worsening possible metastatic squamous cell carcinoma patient had this right-sided pleural effusion for 1.4 L was drained pleural fluid was sent for cytology I personally called the cytopathologist to do as a priority. Qualifiers: Laterality: right Lung location: lower lobe of lung Qualified Code(s): C34.31 - Malignant neoplasm of lower lobe, right bronchus or lung Subjective Principal diagnosis: acute on chronic respiratory failure Interval history: Patient symptoms are a lot better patient is off BiPAP on nasal cannula patient is more alert than yesterday patient is participate in medical decision-making patient will be open to the idea off bronchoscopy with BAL with possibility of intubation in that case we will change the CODE STATUS temporarily. Patient was there during the conversation. Objective PUL Vital signs: Last Vital Signs Temp 98.2 F 10/04/18 11:57 Pulse 73 10/04/18 11:57 Resp 12 10/04/18 11:57 BP 156/82 10/04/18 11:57 Pulse Ox 100 10/04/18 11:57 Effort: mildly labored Auscultation: bilateral: diminished breath sounds (Basilar), wheezes (Minimal scattered) Cardiovascular: regular rate and rhythm Gastrointestinal: normoactive bowel sounds Extremities: no edema non-focal exam, other (More alert following commands has some episodic confusion.) Results - Laboratory Findings CBC and BMP: 10/04/18 01:21 10/04/18 01:21 ABG ABG pH 7.28 pH Units (7.32-7.45) L 10/03/18 18:12 ABG pCO2 61 mmHg (35-45) H 10/03/18 18:12 ABG pO2 78 mmHg (85-104) L 10/03/18 18:12 ABG O2 Saturation 93 % (95-98) L 10/03/18 18:12 PT/INR, D-dimer PT 12.6 Seconds (9.4-12.1) H 10/01/18 11:07 Abnormal lab findings: Abnormal lab results WBC 11.2 K/mcL (4.3-11.1) H 10/04/18 01:21 RBC 3.40 M/mcL (4.19-5.50) L 10/04/18 01:21 Hgb 10.0 g/dL (12.9-16.9) L 10/04/18 01:21 Hct 32.3 % (37.5-50.1) L 10/04/18 01:21 MCHC 31.0 g/dL (31.6-35.5) L 10/04/18 01:21 MPV 9.2 fL (9.4-12.4) L 10/04/18 01:21 10.4 K/mcL (1.6-8.9) H 10/04/18 01:21 0.3 K/mcL (0.6-4.6) L 10/04/18 01:21 Nucleated RBCs/100 WBC 0.2 /100 WBC (0) H 10/03/18 08:26 PT 12.6 Seconds (9.4-12.1) H 10/01/18 11:07 ABG pH 7.28 pH Units (7.32-7.45) L 10/03/18 18:12 ABG pCO2 61 mmHg (35-45) H 10/03/18 18:12 ABG pO2 78 mmHg (85-104) L 10/03/18 18:12 ABG HCO3 29 mEq/L (21-27) H 10/03/18 18:12 ABG Total CO2 30 mEq/L (20-26) H 10/03/18 18:12 ABG O2 Saturation 93 % (95-98) L 10/03/18 18:12 Sodium 134 mEq/L (136-145) L 10/01/18 07:45 Potassium 5.2 mEq/L (3.5-5.1) H 10/03/18 17:48 Chloride 97 mEq/L (98-107) L 09/30/18 07:23 BUN 62 mg/dL (8-23) H 10/04/18 01:21 2.19 mg/dL (0.70-1.30) H 10/04/18 01:21 Est GFR ( Amer) 36 (> 60) L 10/04/18 01:21 Est GFR (Non-Af Amer) 29 (> 60) L 10/04/18 01:21 28 (6-26) H 10/04/18 01:21 Glucose 235 mg/dL (70-105) H 10/04/18 01:21 POC Glucose 179 mg/dL (70-99) H 10/03/18 16:14 313 (280-300) H 10/04/18 01:21 Phosphorus 4.9 mg/dL (2.7-4.5) H 10/02/18 06:10 0.04 ng/mL (< 0.04) H* 10/04/18 09:17 3.3 g/dL (3.5-5.7) L 09/30/18 07:23 1.0 (1.1-2.2) L 09/30/18 07:23 1.59 ng/mL (0.00-0.15) H 10/03/18 17:37 Turbid (Clear) A 10/01/18 06:15 100 mg/dL (Neg-Trace) H 10/01/18 06:15 250 mg/dL (Normal) H 10/01/18 06:15 Moderate (Negative) H 10/01/18 06:15 Ur Leukocyte Esterase Small (Negative) H 10/01/18 06:15 5-15 per hpf (0-3) H 10/01/18 06:15 30-50 per hpf (0-3) H 10/01/18 06:15 Ur Squamous Epith Cells Many per lpf (None-Few) H 10/01/18 06:15 Positive (Negative) A 10/04/18 00:05 Vancomycin Trough 19 mcg/mL (5-10) H 10/02/18 08:16 - Clinical Findings Intake & Output: Intake & Output 10/03/18 10/04/18 10/04/18 23:59 07:59 15:59 Intake Total 200 / 1010 100 / 100 Output Total 350 / 1280 1500 / 1500 Balance -150 / -270 -1400 / -1400 Consult Discharge Plan - Plan [facility]: [facility] [Primary Care Provider[facility] -
--- NOTE | 2018-10-04 14:45 | Internal Med Progress Note ---
Hospitalist Progress Note - Encounter Date of Encounter: 10/04/18 Time of Encounter: 14:42 - Subjective Interval History: Patient seen and examined earlier today with family present at bedside. Patient resting in bed and is s/p right sided thoracentesis. He states he feels a lot better after the thoracentesis and is breathing better. Reports of generalized weakness but denies any chest pain, abd pain, n/v, fever, or chills. Ten point ROS is negative except as listed above No overnight events reported - Exam Vitals: Temp Pulse Resp BP Pulse Ox 98.2 F 73 12 156/82 100 10/04/18 11:57 10/04/18 11:57 10/04/18 11:57 10/04/18 11:57 10/04/18 11:57 Exam: Vitals: Reviewed General: Alert and oriented x3. In no distress Cardiovascular: Irregularly irregular, normal S1 & S2, no rubs, murmurs or gallops. Lungs: No wheezes, or crackles, equal air entry bilaterally, no rales Abdomen: Soft, non-tender, no rigidity, normal bowel sounds Extremities: 1+ pitting edema, no tenderness Neurological: No focal neurological abnormality. Rest of the physical exam is non contributory - Assessment and Plan (1) Acute and chronic respiratory failure Current Visit: Yes Status: Resolved Assessment and Plan: Clinically improving Respiratory failure likely multifactorial in the setting of PNA and underlying lung ca pulmonology on board and evaluation appreciated continue Solumedrol 40mg IV q12h will defer to pulm for steroid tapering s/p right sided thoracentesis with removal of 1.5L fluid continue O2 supplementation and closely monitor O2 saturation with goal O2 sat 88-92% continue symbicort and singular On bronchodilators Q4RT scheduled will closely monitor respiratory status (2) HCAP (healthcare-associated pneumonia) Current Visit: No Status: Acute Assessment and Plan: continue IV abx awaiting blood culture finalization (3) COPD exacerbation Current Visit: Yes Status: Acute Assessment and Plan: continue systemic steroids and bronchodilator support (4) DMII (diabetes mellitus, type 2) Current Visit: No Status: Chronic Assessment and Plan: continue basal and sliding scale insulin monitor FS and BG ADA diet (5) Lung cancer Current Visit: No Status: Chronic Assessment and Plan: 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 (PET/CT 12/28/2017 revealed resolution of the 2 pulmonary lesions. PET/CT findings also raise concern of possible esophageal lesion.) chemoradiotherapy with weekly Carboplatin/Paclitaxel completed 02/17/2018 Adjuvant durvalumab x 10 cycles 03/17/2018-08/21/2018. Stopped secondary to pneumonitis hematology/oncology evaluation appreciated continue management as per oncology patient chemotherapy port removed tip sent for culture. port removed from the anterior right upper chest. (6) HLD (hyperlipidemia) Current Visit: Yes Status: Chronic (7) Hypertension Current Visit: Yes Status: Chronic Assessment and Plan: BP within acceptable range continue current management closely monitor BP (8) [id number] kidney injury Current Visit: Yes Status: Acute Assessment and Plan: kidney function slightly improving. Off vancomycin. will continue to re-assess kidney function in the morning DVT Prophylaxis: Heparin SQ - Time Spent with Patient Total time spent is greater than 50% in coordination of care (as documented) at patient's floor/unit and/or counseling patient: 25 - 35 minutes Plan of Care Discussed with: patient (patient/RN/family/pharmacist/case management) Internal Medicine: Result - Labs CBC & Chem 7: 10/04/18 01:21 10/04/18 01:21 Labs: Short CBC 10/03/18 10/04/18 Range/Units 17:48 01:21 WBC 13.4 H 11.2 H (4.3-11.1) K/mcL Hgb 9.7 L 10.0 L (12.9-16.9) g/dL Hct 31.3 L 32.3 L (37.5-50.1) % Plt Count 252 259 (140-400) K/mcL Neutrophils # 12.3 H 10.4 H (1.6-8.9) K/mcL BMP 10/03/18 10/04/18 17:48 01:21 Sodium 139 139 Potassium 5.2 H 5.0 Chloride 106 106 Carbon Dioxide 25 27 BUN 65 H 62 H Creatinine 2.22 H 2.19 H Glucose 211 H 235 H Calcium 8.7 8.6 Cardiac Enzymes 10/03/18 10/04/18 10/04/18 Range/Units 17:48 01:21 09:17 Troponin I 0.05 H* 0.05 H* 0.04 H* (< 0.04) ng/mL - ABG Interpretation ABG results: ABG ABG pH 7.28 pH Units (7.32-7.45) L 10/03/18 18:12 ABG pCO2 61 mmHg (35-45) H 10/03/18 18:12 ABG pO2 78 mmHg (85-104) L 10/03/18 18:12 ABG O2 Saturation 93 % (95-98) L 10/03/18 18:12 PT/INR, D-dimer PT 12.6 Seconds (9.4-12.1) H 10/01/18 11:07 - Impressions Impressions Tunnelled Catheter Removal 10/03/18 00:00 IMPRESSION: 1. Successful removal of the right chest wall MediPort as discussed above. D/ / Vini Fountain MD / Vini Fountain MD Interpreting Provider: Vini Fountain MD Chest X-Ray 10/03/18 16:15 IMPRESSION: Increasing right pleural effusion with adjacent airspace opacity. D/ / Lety Carrasco MD / Lety Carrasco MD Interpreting Provider: Lety Carrasco MD Thoracentesis 10/04/18 09:24 IMPRESSION: Successful ultrasound guided thoracentesis. D/ / Davide Kearns MD / Davide Kearns MD Interpreting Provider: Davide Kearns MD Chest X-Ray 10/04/18 10:22 IMPRESSION: No significant pneumothorax seen following right chest thoracentesis. [id number] atelectasis or pneumonia in the lower right lung. Small amount of loculated pleural air laterally and inferiorly in the right chest. D/ / Jamal Cooley MD / Jamal Cooley MD Interpreting Provider: Jamal Cooley MD Chest X-Ray 10/04/18 13:00 IMPRESSION: 1. Status post right thoracentesis with no immediate complications. 2. Otherwise, stable chest x-ray. 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 use: without nursing home use Diabetes mellitus complication status: with kidney complications Chronic kidney disease stage: stage 3 (moderate) (5) Lung cancer Qualifiers: Laterality: right Lung location: lower lobe of lung Qualified Code(s): C34.31 - Malignant neoplasm of lower lobe, right bronchus or lung (6) HLD (hyperlipidemia) Qualifiers: Hyperlipidemia type: unspecified Qualified Code(s): E78.5 - Hyperlipidemia, unspecified (7) Hypertension Qualifiers: Hypertension type: unspecified Qualified Code(s): I10 - Essential (primary) hypertension (8) [id number]-[id number] kidney injury Qualifiers: Acute renal failure type: unspecified Chronic kidney disease stage: stage 3 (moderate) Qualified Code(s): N17.9 - Acute kidney failure, unspecified; N18.3 - Chronic kidney disease, stage 3 (moderate)
--- NOTE | 2018-10-04 16:10 | Oncology Inp Progress Note ---
<PaulinaDago - Last Filed: 10/04/18 17:28> Date of Encounter: 10/04/18 Time of Encounter: 17:28 Oncology: Obj Data - Labs CBC & Chem 7: 10/04/18 01:21 10/04/18 01:21 Consult Discharge Plan - Plan [facility]errals: [facility] [Primary Care Provider] - Inpatient Charges Provider: Dr. Nicholas Gallardo Follow up - Inpatient: [id number] - Attending Attestation I examined this patient and my medical decision-making was reviewed with the Advanced Practice Nurse. I agree with the documented findings, disposition and treatment plan as described except to the extent set forth below. -Patient's SOB improved with BIPAP -He is s/p thoracentesis for pleural effusion. Non-ob/gyn cytology and flow cytometry are pending on pleural fluid. 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 He was on on adjuvant durvalumab x 10 cycles 03/17/2018-08/21/2018 which was subsequently stopped secondary to pneum onitis. CT of the chest without contrast reveals: 1. Worsening consolidation and volume loss throughout the right lung with obstruction of the right upper lobe bronchi and right interlobar bronchus. It is difficult to assess if this is related to soft tissue mass versus mucoid impaction given respiratory motion artifact. There is also increasing partially loculated moderate right pleural effusion. There is a focus of gas within the right lower lobe which may be related to infection or loculated pneumothorax. 2. Slight interval increase in size of a right paratracheal lymph node. Overall, there appears to be increased soft tissue prominence in the right hilum when compared to the prior exam. These findings raise suspicion for progression of malignancy. 3. Indeterminate 12 mm ground-glass nodule in the lingula. Trace left pleural effusion with patchy consolidative and ground-glass opacities in the left lung, likely infectious or inflammatory in etiology. Attention on follow-up exams is recommended. Plan: CT imaging concerning for infectious vs. malignant etiology S/P bronchoscopy during admission at [facility] end of August/Beginning of September was without significant findings according to most recent office note S/P thoracentesis with drainage of 1.4L fluid, cytology is pending Pulmonology consulted for further recommendations and for consideration of bronchoscopy once respiratory status improves for airway examination We [place] and discuss pathology results if resulted during his stay, otherwise will arrange for outpatient follow up to discuss pathology/next steps Qualifiers: Laterality: right Lung location: lower lobe of lung Qualified Code(s): C34.31 - Malignant neoplasm of lower lobe, right bronchus or lung Oncology: Subj Interval history: Mr. Flores is resting comfortably,mental status improved since last assessment since use of bipap, currently on 5L nasal cannula. His son and daughter and law are at bedside. He states he feels well and breathing effort improved since his thoracentesis. We discussed CT imaging findings and cytology testing on pleural fluid. - Constitutional General appearance: cooperative, no acute distress, no febrile - Head Head exam: Present: atraumatic - ENT ENT exam: Present: mucous membranes moist, normal oropharynx - Respiratory Respiratory exam: Present: decreased breath sounds, rhonchi. Absent: respiratory distress - Cardiovascular Cardiovascular exam: Present: RRR - GI/Abdominal GI/Abdominal exam: Present: normal bowel sounds, soft. Absent: tenderness - Extremities Exam Extremities exam: Present: normal inspection. Absent: calf tenderness - Neurological Exam Neurological exam: Present: alert, oriented X3, no focal deficits, strengths equal and symetr throughout - Psychiatric Psychiatric exam: Present: normal affect, normal mood - Skin Skin exam: Present: dry, normal color, warm Oncology: Obj Data - Labs CBC & Chem 7: 10/04/18 01:21 10/04/18 01:21 Inpatient Charges Provider: Dr. Nicholas Gallardo
[2018-10-04] MEDS: D5% in 0.9% NACL 1,000 ML IVC SCH (18:14)
--- NOTE | 2018-10-04 18:36 | Anesthesia Evaluation PreOp ---
Date of Encounter: 10/04/18 Time of Encounter: 18:34 - Past History Planned Operation: Bronchoscopy Cardiac History: HTN, Hyperlipidemia Pulmonary History: Other (squamous cell carcinoma of the right lower lobe of the lung, Acute and chronic respiratory failure, healthcare-associated pneumonia,) GROUP DIRECTOR History: Denies Any Significant HX Other Medical History: Renal (Acute on chronic renal failure), Diabetes Type II Anesthesia History: No Prior Anesthetic Complications, Past Anesthesia (x 3back sx) Alcohol Use: none Drug use: none Medications and Allergies Acetaminophen [Tylenol] 650 mg PO QPM 10/27/17 [History] Aspirin Enteric Coated [Aspirin EC] 81 mg PO DAILY 10/27/17 [History] Cholecalciferol (D-3) [Vitamin D] 4,000 unit PO DAILY 10/27/17 [History] DULoxetine [Cymbalta] 30 mg PO BID 10/27/17 [History] Cyanocobalamin (Vitamin B-12) [Vitamin B-12] 1,000 mcg PO Q48H 12/21/17 [History] Lidocaine/Prilocaine [Emla] 1 appl TP DAILY #30 gm 01/02/18 [Rx] Bisacodyl [Dulcolax] 5 mg PO DAILY PRN #30 tablet 04/28/18 [Rx] GuaiFENesin/Dextromethorphan [Robitussin/Dm] 5 ml PO Q6HR PRN #240 ml 04/28/18 [Rx] Budesonide/Formoterol 160/4.5 [Symbicort 160/4.5] 2 puff IH BID #1 hfa.aer.ad 06/09/18 [Rx] Pantoprazole Sodium [Protonix] 40 mg PO DAILY 06/19/18 [History] Ondansetron HCl [Zofran] 4 mg PO TID PRN 06/27/18 [History] Tramadol HCl [Ultram] 50 mg PO BID PRN 06/27/18 [History] Insulin ASPART [Novolog Flexpen] 0 unit SQ TIDAC PRN 09/25/18 [History] Insulin Glargine,Hum.rec.anlog [Lantus Solostar] 14 unit SQ HS 09/25/18 [History] Montelukast [Singulair] 10 mg PO DAILY 09/25/18 [History] Acetaminophen [Tylenol] 325 mg PO QAM 09/30/18 [History] Albuterol Sulfate [Albuterol Inhaler] 2 puff IH QID PRN 09/30/18 [History] Atorvastatin Calcium [Lipitor] 40 mg PO QPM 09/30/18 [History] Chlorhex Gl/Glycerin/He-Cell [Lubricating Jelly] 1 appl TP AD 09/30/18 [History] Gabapentin [Neurontin] 600 mg PO BID 09/30/18 [History] Povidone-Iodine 1 each TP AD PRN 09/30/18 [History] Propylene Glycol/Peg 400 [Systane 0.3-0.4% Eye Drops] 1 drop BOTH EYES DAILY PRN 09/30/18 [History] Tiotropium [place] [Spiriva Respimat] 2 puff IH DAILY 09/30/18 [History] 3 Allergy/AdvReac Type Severity Reaction Status Date / Time Cyclobenzaprine Allergy See Verified 09/25/18 13:37 Comments methocarbamol Allergy See Verified 09/25/18 13:37 Comments doxazosin AdvReac See Verified 09/25/18 13:37 Comments - Meds/Allergy Pre-op Review Medications Reviewed: Yes Allergies Reviewed: Yes Beta Blockers on Current Med List: Yes Anesthesia Results - Labs 10/04/18 01:21 10/04/18 01:21 - Imaging EKG: report reviewed (Sins tachycardia with a first degree AV block Left axis deviation Anterior and inferior infarct(s), age undetermined) Anesthesia Exam Vital Signs/O2 Sat, Most Current Temp Pulse Resp BP Pulse Ox 98.3 F 71 18 159/81 97 10/04/18 17:02 10/04/18 17:02 10/04/18 17:02 10/04/18 17:02 10/04/18 17:02 NPO (# of Hours): > 8 hrs Pain Scale: 0 Pain Scale Used: Numeric (1 - 10) - HEENT Pupil (Motor): Pupils equal, EOMI Mallampati: III Teeth: Missing, Poor dentition Oral Opening: Greater than 3 - GROUP DIRECTOR LOC: Oriented GROUP DIRECTOR Motor: Normal RUE, Normal LUE, Normal RLE, Normal LLE, Normal Face GROUP DIRECTOR Sensory: Normal: RUE, LUE, RLE, LLE, Face - Cardiac Rhythm: Regular Murmur: None JVD: No Carotid Bruit: No - Pulmonary Breath Sounds: bilateral Clear Respiratory Effort: Asymmetrical Anesthesia Assess/Plan ASA Score: 3 Level of consciousness: Cooperative Anesthetic Plan: General Autologous Blood: Yes Monitoring Plan: Standard Monitors Recovery Plan: PACU
[2018-10-04] MEDS: traMADol 50 MG TABLET PO PRN (21:50)
[2018-10-05] MEDS: Ipratropium/Albuterol Neb 3 ML IH SCH ×6 (00:12→19:54)
[2018-10-05] MEDS: Insulin LISPRO 300 UNITS/3 ML VIAL SQ SCH ×4 (01:15→17:26)
[2018-10-05] MEDS: Piperacillin/Tazobactam 3.375 GM in 0.9 % Sodium Chloride Mini Bag 100 ML IVPB SCH ×3 (01:16→17:25)
[2018-10-05] MEDS: MethylPREDNISolone 40 MG/ML VIAL IVP SCH ×2 (05:39→17:25)
[2018-10-05] MEDS: *HR* Heparin 5,000 UNIT/ML VIAL SQ SCH ×2 (05:39→17:25)
[2018-10-05 06:11] LABS: Calcium 8.3 mg/dL (8.6-10.3); Magnesium 1.9 mg/dL (1.6-2.6); Phosphorous 3.7 mg/dL (2.7-4.5); Potassium 5.2 mEq/L (3.5-5.1)
[2018-10-05 06:33] LABS: Folate 9.3 ng/mL (3.0-16.0)
[2018-10-05] MEDS: Budesonide/Formoterol 160/4.5 1 PUFF INH IH SCH ×2 (07:52→19:54)
[2018-10-05 08:17] LABS: Basophils % 0.1 %; Hematocrit 31.6 % (37.5-50.1); Hemoglobin 9.7 g/dL (12.9-16.9); Immature Granulocytes % 1.5 % (0-4); Lymphocytes # 0.4 K/mcL (0.6-4.6); Mean Corpuscular HGB Conc 30.7 g/dL (31.6-35.5); Mean Corpuscular Hemoglobin 29.2 pg (28.0-33.3); Mean Corpuscular Volume 95.2 fL (83.0-100.0); Mean Platelet Volume 8.9 fL (9.4-12.4); Monocytes # 0.5 K/mcL (0.0-1.3); Monocytes % 4.8 %; Neutrophils # 9.5 K/mcL (1.6-8.9); Platelet Count 265 K/mcL (140-400); Red Blood Count 3.32 M/mcL (4.19-5.50); Red Cell Distribution Width 14.2 % (11.5-14.5); Segmented Neutrophils % 89.6 %
[2018-10-05] MEDS: Insulin DETEMIR 100 UNIT/ML X5UNITS SQ SCH ×2 (09:26→21:34)
[2018-10-05] MEDS ORDERED: Insulin DETEMIR 100 UNIT/ML X5UNITS SQ ONE (09:27)
[2018-10-05] MEDS: Gabapentin 300 MG CAPSULE PO SCH ×2 (09:31→21:34)
[2018-10-05] MEDS: Aspirin Enteric Coated 81 MG Tablet PO SCH (09:31)
[2018-10-05] MEDS: Metoprolol XL (24 HR) Succ 50 MG TAB.ER.24H PO SCH (09:31)
--- NOTE | 2018-10-05 11:28 | Internal Med Progress Note ---
Hospitalist Progress Note - Encounter Date of Encounter: 10/05/18 Time of Encounter: 11:13 - Subjective Interval History: Patient seen and examined earlier this morning with family and RN present at bedside. Pt resting in bed and saturating well on nasal cannula. Pt reports of constipation but denies any abd pain or cramping. No overnight events were reported. Pt is scheduled for bronchoscopy later today Ten point ROS is negative except as listed above - Exam Vitals: Temp Pulse Resp BP Pulse Ox 98.2 F 70 18 152/85 98 10/05/18 06:58 10/05/18 06:58 10/05/18 06:58 10/05/18 06:58 10/05/18 09:41 Exam: Vitals: Reviewed General: Alert and oriented x3. In no distress Cardiovascular: Irregularly irregular, normal S1 & S2, no rubs, murmurs or gallops. Lungs: No wheezes, or crackles, equal air entry bilaterally, no rales Abdomen: Soft, non-tender, no rigidity, normal bowel sounds Extremities: 1+ pitting edema, no tenderness Neurological: No focal neurological abnormality. Rest of the physical exam is non contributory - Assessment and Plan (1) Acute and chronic respiratory failure Current Visit: Yes Status: Resolved Assessment and Plan: Clinically improving Respiratory failure likely multifactorial in the setting of PNA and underlying lung ca pulmonology on board and evaluation appreciated continue Solumedrol 40mg IV q12h will defer to pulm for steroid tapering s/p right sided thoracentesis with removal of 1.5L fluid on 10/04/18 scheduled for bronchoscopy later today continue O2 supplementation and closely monitor O2 saturation with goal O2 sat 88-92% continue symbicort and singular On bronchodilators Q4RT scheduled will closely monitor respiratory status (2) HCAP (healthcare-associated pneumonia) Current Visit: No Status: Acute Assessment and Plan: continue IV abx awaiting blood culture finalization (3) COPD exacerbation Current Visit: Yes Status: Acute Assessment and Plan: continue systemic steroids and bronchodilator support (4) DMII (diabetes mellitus, type 2) Current Visit: No Status: Chronic Assessment and Plan: continue basal and sliding scale insulin monitor FS and BG ADA diet (5) Lung cancer Current Visit: No Status: Chronic Assessment and Plan: 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 (PET/CT 12/28/2017 revealed resolution of the 2 pulmonary lesions. PET/CT findings also raise concern of possible esophageal lesion.) chemoradiotherapy with weekly Carboplatin/Paclitaxel completed 02/17/2018 Adjuvant durvalumab x 10 cycles 03/17/2018-08/21/2018. Stopped secondary to pneumonitis hematology/oncology evaluation appreciated continue management as per oncology patient chemotherapy port removed tip sent for culture. port removed from the anterior right upper chest. (6) HLD (hyperlipidemia) Current Visit: Yes Status: Chronic Assessment and Plan: On atorvastatin 40 mg daily at bedtime. (7) Hypertension Current Visit: Yes Status: Chronic Assessment and Plan: BP within acceptable range continue current management closely monitor BP (8) Lvlst-yj-puyqfps kidney injury Current Visit: Yes Status: Acute Assessment and Plan: kidney function slightly improving. Off vancomycin. will continue to re-assess kidney function in the morning (9) Constipation Current Visit: Yes Status: Acute Assessment and Plan: laxative support DVT Prophylaxis: Heparin sQ - Time Spent with Patient Total time spent is greater than 50% in coordination of care (as documented) at patient's floor/unit and/or counseling patient: 25 - 35 minutes Plan of Care Discussed with: patient (patient/family/RN/consulting provider/case management/pharmacist) Internal Medicine: Result - Labs CBC & Chem 7: 10/05/18 08:04 10/05/18 05:18 Labs: Short CBC 10/05/18 Range/Units 08:04 WBC 10.6 (4.3-11.1) K/mcL Hgb 9.7 L (12.9-16.9) g/dL Hct 31.6 L (37.5-50.1) % Plt Count 265 (140-400) K/mcL Neutrophils # 9.5 H (1.6-8.9) K/mcL BMP 10/05/18 05:18 Sodium 139 Potassium 5.2 H Chloride 106 Carbon Dioxide 29 BUN 52 H Creatinine 1.86 H Glucose 282 H Calcium 8.3 L - ABG Interpretation ABG results: ABG ABG pH 7.28 pH Units (7.32-7.45) L 10/03/18 18:12 ABG pCO2 61 mmHg (35-45) H 10/03/18 18:12 ABG pO2 78 mmHg (85-104) L 10/03/18 18:12 ABG O2 Saturation 93 % (95-98) L 10/03/18 18:12 PT/INR, D-dimer PT 12.6 Seconds (9.4-12.1) H 10/01/18 11:07 - Impressions Impressions Chest CT 10/03/18 13:00 IMPRESSION: 1. Worsening consolidation and volume loss throughout the right lung with obstruction of the right upper lobe bronchi and right interlobar bronchus. It is difficult to assess if this is related to soft tissue mass versus mucoid impaction given respiratory motion artifact. There is also increasing partially loculated moderate right pleural effusion. There is a focus of gas within the right lower lobe which may be related to infection or loculated pneumothorax. 2. Slight interval increase in size of a right paratracheal lymph node. Overall, there appears to be increased soft tissue prominence in the right hilum when compared to the prior exam. These findings raise suspicion for progression of malignancy. 3. Indeterminate 12 mm ground-glass nodule in the lingula. Trace left pleural effusion with patchy consolidative and ground-glass opacities in the left lung, likely infectious or inflammatory in etiology. Attention on follow-up exams is recommended. D/ / 10/03/2018 14:05:21 Lety Carrasco MD / [facility] Interpreting Provider: Lety Carrasco MD Thoracentesis 10/04/18 09:24 IMPRESSION: Successful ultrasound guided thoracentesis. D/ / Davide Kearns MD / Davide Kearns MD Interpreting Provider: Davide Kearns MD Chest X-Ray 10/04/18 13:00 IMPRESSION: 1. Status post right thoracentesis with no immediate complications. 2. Otherwise, stable chest x-ray. D/ / Vini Fountain MD / Vini Fountain MD Interpreting Provider: Vini Fountain MD Chest X-Ray 10/05/18 07:00 IMPRESSION: Patchy airspace opacities, predominantly in the right mid to lower lung field, may be related to pneumonia, atelectasis or asymmetric pulmonary edema, new since the prior study. Recommend follow-up to resolution and exclude underlying lung mass. Mild to moderate right pleural effusion. D/ / Devendra Machado MD / Devendra Machado MD Interpreting Provider: Devendra Machado MD Consult Discharge Plan - Plan [facility]errals: [facility] [Primary Care Provider] - (1) Acute and chronic respiratory failure Qualifiers: Respiratory failure complication: hypoxia Qualified Code(s): J96.21 - Acute and chronic respiratory failure with hypoxia (4) DMII (diabetes mellitus, type 2) Qualifiers: Diabetes mellitus shelter insulin use: without termite exterminator helper use Diabetes mellitus complication status: with kidney complications Chronic kidney disease stage: stage 3 (moderate) (5) Lung cancer Qualifiers: Laterality: right Lung location: lower lobe of lung Qualified Code(s): C34.31 - Malignant neoplasm of lower lobe, right bronchus or lung (6) HLD (hyperlipidemia) Qualifiers: Hyperlipidemia type: unspecified Qualified Code(s): E78.5 - Hyperlipidemia, unspecified (7) Hypertension Qualifiers: Hypertension type: unspecified Qualified Code(s): I10 - Essential (primary) hypertension (8) Uzply-zf-zntsfep kidney injury Qualifiers: Acute renal failure type: unspecified Chronic kidney disease stage: stage 3 (moderate) Qualified Code(s): N17.9 - Acute kidney failure, unspecified; N18.3 - Chronic kidney disease, stage 3 (moderate) (9) Constipation Qualifiers: Constipation type: drug induced constipation Qualified Code(s): K59.03 - Drug induced constipation
[2018-10-05] MEDS: Sennosides/Docusate Sodium TABLET PO SCH ×2 (11:34→21:33)
[2018-10-05] MEDS ORDERED: *HR* Propofol 200 MG/20 ML VIAL IVP ONE (11:41)
[2018-10-05] MEDS ORDERED: Lidocaine -MPF 2% 2 ML VIAL ONE ×2 (11:42→12:05)
[2018-10-05 11:56] LABS: ABG Base Excess 6 mEq/L (-2 to 3); ABG HCO3 34 mEq/L (21-27); ABG Oxygen Saturation 95 % (95-98); ABG PCO2 66 mmHg (35-45); ABG PH 7.31 pH Units (7.32-7.45); ABG PO2 87 mmHg (85-104); ABG TCO2 36 mEq/L (20-26)
--- NOTE | 2018-10-05 15:02 | Pulmonology Progress Note ---
Date of Encounter: 10/05/18 Time of Encounter: 10:00 Assessment and Plan (1) Acute respiratory failure Current Visit: Yes Status: Acute Patient has acute on chronic respiratory failure complicated by COPD and pneumonia worsening of right-sided malignant squamous cell carcinoma. Patient is okay for bronchoscopy with quick airway exam and possible BAL and bronchopulmonary toileting. 10/05 patient has worsening lung malignancy and top of that patient has lot of secretions will do a bronchoscopy today with the BAL Qualifiers: Respiratory failure complication: hypoxia and hypercapnia Qualified Code(s): J96.01 - Acute respiratory failure with hypoxia; J96.02 - Acute respiratory failure with hypercapnia (2) HCAP (healthcare-associated pneumonia) Current Visit: No Status: Acute The cover with broad-spectrum antibiotics. I did do a bronchoscopy with BAL patient has bilateral lobar his thick secretions the right upper lobe was almost 80% occluded due to extrinsic compression after clearing up the thick secretion the bronchus intermedius I could see the right lower lobe and right middle lobe with inflamed mucosa. S neida patient was desaturating to the procedure is going for bronchopulmonary toileting. Didnt attempt bronchoalveolar lavage because of instability. (3) COPD exacerbation Current Visit: Yes Status: Acute To continue schedule bronchodilators and steroids. Continue liberation from BiPAP (4) Lung cancer Current Visit: No Status: Chronic Patient has worsening possible metastatic squamous cell carcinoma patient had this right-sided pleural effusion for 1.4 L was drained pleural fluid was sent for cytology , pleural fluid cytology came negative I did the bronchoscopy there was significant extrinsic compression of the right upper lobe. Qualifiers: Laterality: right Lung location: lower lobe of lung Qualified Code(s): C34.31 - Malignant neoplasm of lower lobe, right bronchus or lung Subjective Principal diagnosis: acute on chronic respiratory failure Interval history: Patient symptoms are a lot better patient is off BiPAP on nasal cannula patient is more alert than yesterday patient is participate in medical decision-making patient will be open to the idea off bronchoscopy with BAL with possibility of intubation in that case we will change the CODE STATUS temporarily. Patient was there during the conversation. 10/05 patient does not have any acute events overnight patient was on BiPAP overnight. if He is stable off BiPAP and proceed with bronchoscopy Objective PUL Vital signs: Last Vital Signs Temp 98.7 F 10/05/18 12:49 Pulse 92 10/05/18 14:15 Resp 16 10/05/18 14:15 BP 136/81 10/05/18 14:15 Pulse Ox 95 10/05/18 14:00 General appearance: no acute distress Auscultation: bilateral: rales Cardiovascular: regular rate and rhythm Gastrointestinal: hypoactive bowel sounds Extremities: no edema non-focal exam, other (Patient is slightly slow to respond.) Results - Laboratory Findings CBC and BMP: 10/05/18 08:04 10/05/18 18:30 ABG ABG pH 7.31 pH Units (7.32-7.45) L 10/05/18 09:05 ABG pCO2 66 mmHg (35-45) H 10/05/18 09:05 ABG pO2 87 mmHg (85-104) 10/05/18 09:05 ABG O2 Saturation 95 % (95-98) 10/05/18 09:05 PT/INR, D-dimer PT 12.6 Seconds (9.4-12.1) H 10/01/18 11:07 Abnormal lab findings: Abnormal lab results WBC 11.2 K/mcL (4.3-11.1) H 10/04/18 01:21 RBC 3.32 M/mcL (4.19-5.50) L 10/05/18 08:04 Hgb 9.7 g/dL (12.9-16.9) L 10/05/18 08:04 Hct 31.6 % (37.5-50.1) L 10/05/18 08:04 MCHC 30.7 g/dL (31.6-35.5) L 10/05/18 08:04 MPV 8.9 fL (9.4-12.4) L 10/05/18 08:04 9.5 K/mcL (1.6-8.9) H 10/05/18 08:04 0.4 K/mcL (0.6-4.6) L 10/05/18 08:04 Nucleated RBCs/100 WBC 0.2 /100 WBC (0) H 10/03/18 08:26 PT 12.6 Seconds (9.4-12.1) H 10/01/18 11:07 ABG pH 7.31 pH Units (7.32-7.45) L 10/05/18 09:05 ABG pCO2 66 mmHg (35-45) H 10/05/18 09:05 ABG pO2 78 mmHg (85-104) L 10/03/18 18:12 ABG HCO3 34 mEq/L (21-27) H 10/05/18 09:05 ABG Total CO2 36 mEq/L (20-26) H 10/05/18 09:05 ABG O2 Saturation 93 % (95-98) L 10/03/18 18:12 ABG Base Excess 6 mEq/L (-2 to 3) H 10/05/18 09:05 Sodium 134 mEq/L (136-145) L 10/01/18 07:45 Potassium 5.2 mEq/L (3.5-5.1) H 10/05/18 05:18 Chloride 97 mEq/L (98-107) L 09/30/18 07:23 BUN 52 mg/dL (8-23) H 10/05/18 05:18 1.86 mg/dL (0.70-1.30) H 10/05/18 05:18 Est GFR ( Amer) 43 (> 60) L 10/05/18 05:18 Est GFR (Non-Af Amer) 35 (> 60) L 10/05/18 05:18 28 (6-26) H 10/05/18 05:18 Glucose 282 mg/dL (70-105) H 10/05/18 05:18 POC Glucose 181 mg/dL (70-99) H 10/05/18 07:05 312 (280-300) H 10/05/18 05:18 Calcium 8.3 mg/dL (8.6-10.3) L 10/05/18 05:18 Phosphorus 4.9 mg/dL (2.7-4.5) H 10/02/18 06:10 Iron 52 mcg/dL (65-175) L 10/05/18 05:18 161 mg/dL (203-362) L 10/05/18 05:18 680 ng/mL (20-250) H 10/05/18 05:18 0.04 ng/mL (< 0.04) H* 10/04/18 09:17 3.3 g/dL (3.5-5.7) L 09/30/18 07:23 1.0 (1.1-2.2) L 09/30/18 07:23 1.59 ng/mL (0.00-0.15) H 10/03/18 17:37 Turbid (Clear) A 10/01/18 06:15 100 mg/dL (Neg-Trace) H 10/01/18 06:15 250 mg/dL (Normal) H 10/01/18 06:15 Moderate (Negative) H 10/01/18 06:15 Ur Leukocyte Esterase Small (Negative) H 10/01/18 06:15 5-15 per hpf (0-3) H 10/01/18 06:15 30-50 per hpf (0-3) H 10/01/18 06:15 Ur Squamous Epith Cells Many per lpf (None-Few) H 10/01/18 06:15 Positive (Negative) A 10/04/18 00:05 Vancomycin Trough 19 mcg/mL (5-10) H 10/02/18 08:16 - Microbiology Findings Microbiology Findings: Microbiology, Last 48 Hours 09/30/18 07:23 Blood Culture - Final Peripheral Venipuncture No growth. Final report. 09/30/18 07:32 Blood Culture - Final Peripheral Venipuncture No growth. Final report. - Clinical Findings Intake & Output: Intake & Output 10/04/18 10/05/18 10/05/18 23:59 07:59 15:59 Intake Total 1340 / 1540 100 / 100 Output Total 950 / 2450 750 / 750 Balance 390 / -910 -650 / -650 Consult Discharge Plan - Plan [facility]errals: [facility] [Primary Care Provider] -
--- NOTE | 2018-10-05 15:23 | Oncology Inp Progress Note ---
<PaulinaDago - Last Filed: 10/05/18 16:17> Date of Encounter: 10/05/18 Time of Encounter: 16:17 Oncology: Obj Data - Labs CBC & Chem 7: 10/05/18 08:04 10/05/18 05:18 Consult Discharge Plan - Plan Referrals: [facility] [Primary Care Provider] - Inpatient Charges Provider: Dr. Nicholas Gallardo Follow up - Inpatient: [id number] - Attending Attestation I examined this patient and my medical decision-making was reviewed with the Advanced Practice Nurse. I agree with the documented findings, disposition and treatment plan as described except to the extent set forth below. -Right pleural fluid cytology negative for malignancy -Patient had bronchoscopy / BAL done earlier today and his respiratory status is improving. 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 He was on on adjuvant durvalumab x 10 cycles 03/17/2018-08/21/2018 which was subsequently stopped secondary to pneumonitis. CT of the chest without contrast reveals: 1. Worsening consolidation and volume loss throughout the right lung with obstruction of the right upper lobe bronchi and right interlobar bronchus. It is difficult to assess if this is related to soft tissue mass versus mucoid impaction given respiratory motion artifact. There is also increasing partially loculated moderate right pleural effusion. There is a focus of gas within the right lower lobe which may be related to infection or loculated pneumothorax. 2. Slight interval increase in size of a right paratracheal lymph node. Overall, there appears to be increased soft tissue prominence in the right hilum when compared to the prior exam. These findings raise suspicion for progression of malignancy. 3. Indeterminate 12 mm ground-glass nodule in the lingula. Trace left pleural effusion with patchy consolidative and ground-glass opacities in the left lung, likely infectious or inflammatory in etiology. Attention on follow-up exams is recommended. Plan: CT imaging concerning for infectious vs. malignant etiology S/P bronchoscopy during admission at [place] end of August/Beginning of September was without significant findings according to most recent office note S/P thoracentesis with drainage of 1.4L fluid, cytology is negative for malignancy Bronchoscopy today which revealed extrinsic compression in the right upper lobe secondary to posterior mass effect, no endobronchial lesion, mucosal inflammtion, copious secretions in the left mainstem bronchus, no BAL obtained since patient was desaturating, no other specimens collected Qualifiers: Laterality: right Lung location: lower lobe of lung Qualified Code(s): C34.31 - Malignant neoplasm of lower lobe, right bronchus or lung Oncology: Subj Interval history: Mr. Flores continues to feel improved since admission. Denies pain, nausea, vomiting, fever/chills. He has continued to intermittently require bipap. Currently doing well on nasal cannula. - Constitutional General appearance: cooperative, no acute distress, no febrile - Head Head exam: Present: atraumatic - Respiratory Respiratory exam: Present: decreased breath sounds, rhonchi. Absent: respiratory distress - Cardiovascular Cardiovascular exam: Present: RRR - GI/Abdominal GI/Abdominal exam: Present: normal bowel sounds, soft. Absent: tenderness - Extremities Exam Extremities exam: Absent: calf tenderness - Neurological Exam Neurological exam: Present: alert, oriented X3, no focal deficits, strengths equal and symetr throughout - Psychiatric Psychiatric exam: Present: normal affect, normal mood - Skin Skin exam: Present: dry, normal color, warm Oncology: Obj Data - Labs CBC & Chem 7: 10/05/18 08:04 10/05/18 05:18 Inpatient Charges Provider: Dr. Nicholas Gallardo
[2018-10-05] MEDS: D5% in 0.9% NACL 1,000 ML IVC SCH (17:25)
[2018-10-05 19:08] LABS: Calcium 8.8 mg/dL (8.6-10.3); Potassium 5.4 mEq/L (3.5-5.1)
[2018-10-05] MEDS: traMADol 50 MG TABLET PO PRN (21:33)
[2018-10-06] MEDS: Piperacillin/Tazobactam 3.375 GM in 0.9 % Sodium Chloride Mini Bag 100 ML IVPB SCH ×3 (00:52→16:14)
[2018-10-06] MEDS: Insulin LISPRO 300 UNITS/3 ML VIAL SQ SCH ×4 (02:30→17:23)
[2018-10-06] MEDS: Ipratropium/Albuterol Neb 3 ML IH SCH ×6 (03:47→21:14)
[2018-10-06] MEDS: MethylPREDNISolone 40 MG/ML VIAL IVP SCH ×2 (05:56→17:23)
[2018-10-06] MEDS: *HR* Heparin 5,000 UNIT/ML VIAL SQ SCH ×2 (05:56→17:23)
[2018-10-06 07:19] LABS: Basophils % 0.2 %; Eosinophils % 0.2 %; Hemoglobin 10.3 g/dL (12.9-16.9); Immature Granulocytes % 1.9 % (0-4); Lymphocytes # 0.7 K/mcL (0.6-4.6); Lymphocytes % 5.7 %; Mean Corpuscular HGB Conc 30.3 g/dL (31.6-35.5); Mean Corpuscular Hemoglobin 29.5 pg (28.0-33.3); Mean Corpuscular Volume 97.4 fL (83.0-100.0); Mean Platelet Volume 9.4 fL (9.4-12.4); Monocytes # 0.9 K/mcL (0.0-1.3); Monocytes % 6.8 %; Neutrophils # 10.7 K/mcL (1.6-8.9); Platelet Count 258 K/mcL (140-400); Red Blood Count 3.49 M/mcL (4.19-5.50); Red Cell Distribution Width 14.4 % (11.5-14.5); Segmented Neutrophils % 85.2 %
[2018-10-06 07:38] LABS: Calcium 8.7 mg/dL (8.6-10.3); Magnesium 1.9 mg/dL (1.6-2.6); Phosphorous 3.8 mg/dL (2.7-4.5)
[2018-10-06] MEDS: Budesonide/Formoterol 160/4.5 1 PUFF INH IH SCH ×2 (07:53→21:15)
[2018-10-06] MEDS: Aspirin Enteric Coated 81 MG Tablet PO SCH (08:43)
[2018-10-06] MEDS: Sennosides/Docusate Sodium TABLET PO SCH ×2 (08:43→20:40)
[2018-10-06] MEDS: Gabapentin 300 MG CAPSULE PO SCH ×2 (08:43→20:40)
[2018-10-06] MEDS: Insulin DETEMIR 100 UNIT/ML X5UNITS SQ SCH ×2 (08:43→20:40)
[2018-10-06] MEDS: Metoprolol XL (24 HR) Succ 50 MG TAB.ER.24H PO SCH (08:43)
[2018-10-06] MEDS: amLODIPine 5 MG TABLET PO SCH (10:44)
--- NOTE | 2018-10-06 13:01 | Internal Med Progress Note ---
Hospitalist Progress Note - Encounter Date of Encounter: 10/06/18 Time of Encounter: 12:59 - Subjective Interval History: Patient seen and examined earlier today with family present at bedside. Patient resting in bed and saturating well on nasal cannula. He was reported of having lower abd discomfort and was noted to be incontinent despite mcgarry support. Bedside bladder scan reported 1000cc of urine, mcgarry catheter was removed and pt was straight catheterized with removal of 1300 cc of urine. Pt reported significant improvement in his abd discomfort after this. He also reports of a productive cough but no fever or chills. Ten point ROS is negative except as listed above. - Exam Vitals: Temp Pulse Resp BP Pulse Ox 97.8 F 74 20 151/85 99 10/06/18 12:10 10/06/18 12:10 10/06/18 12:10 10/06/18 12:10 10/06/18 12:10 Exam: Vitals: Reviewed General: Alert and oriented x3. In no distress Cardiovascular: Irregularly irregular, normal S1 & S2, no rubs, murmurs or gallops. Lungs: No wheezes, or crackles, equal air entry bilaterally, no rales Abdomen: Soft, non-tender, no rigidity, normal bowel sounds Extremities: trace pedal edema, no tenderness Neurological: No focal neurological abnormality. Rest of the physical exam is non contributory - Assessment and Plan (1) Acute and chronic respiratory failure Current Visit: Yes Status: Acute Assessment and Plan: Clinically improving Respiratory failure likely multifactorial in the setting of PNA and underlying lung ca pulmonology on board and evaluation appreciated continue Solumedrol 40mg IV q12h will defer to pulm for steroid tapering s/p right sided thoracentesis with removal of 1.5L fluid on 10/04/18 s/p bronchoscopy on 10/05/18 reporting compression of right upper lobe. Will f/u with pulmonology continue O2 supplementation and closely monitor O2 saturation with goal O2 sat 88-92% continue symbicort and singular On bronchodilators Q4RT scheduled will closely monitor respiratory status (2) HCAP (healthcare-associated pneumonia) Current Visit: No Status: Acute Assessment and Plan: continue IV abx awaiting blood culture finalization (3) COPD exacerbation Current Visit: Yes Status: Acute Assessment and Plan: continue systemic steroids and bronchodilator support (4) DMII (diabetes mellitus, type 2) Current Visit: No Status: Chronic Assessment and Plan: continue basal and sliding scale insulin monitor FS and BG ADA diet (5) Lung cancer Current Visit: No Status: Chronic Assessment and Plan: 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 (PET/CT 12/28/2017 revealed resolution of the 2 pulmonary lesions. PET/CT fin dings also raise concern of possible esophageal lesion.) chemoradiotherapy with weekly Carboplatin/Paclitaxel completed 02/17/2018 Adjuvant durvalumab x 10 cycles 03/17/2018-08/21/2018. Stopped secondary to pneumonitis hematology/oncology evaluation appreciated continue management as per oncology patient chemotherapy port removed tip sent for culture. port removed from the anterior right upper chest. (6) HLD (hyperlipidemia) Current Visit: Yes Status: Chronic Assessment and Plan: On atorvastatin 40 mg daily at bedtime. (7) Hypertension Current Visit: Yes Status: Chronic Assessment and Plan: continues to remain hypertensive Added amlodipine 5mg PO qdaily in addition to continuation of current managementnt closely monitor BP (8) Ictzb-mk-kxfdyta kidney injury Current Visit: Yes Status: Acute Assessment and Plan: kidney function slightly worsened from previous day likely secondary to urinary outlet obstruction Off vancomycin. will continue to re-assess kidney function in the morning (9) Constipation Current Visit: Yes Status: Resolved Assessment and Plan: laxative support DVT Prophylaxis: Heparin sQ - Time Spent with Patient Total time spent is greater than 50% in coordination of care (as documented) at patient's floor/unit and/or counseling patient: 25 - 35 minutes Plan of Care Discussed with: patient (patient/RN/family/case management/pharmacist) Internal Medicine: Result - Labs CBC & Chem 7: 10/06/18 07:06 10/06/18 07:06 Labs: Short CBC 10/06/18 Range/Units 07:06 WBC 12.6 H (4.3-11.1) K/mcL Hgb 10.3 L (12.9-16.9) g/dL Hct 34.0 L (37.5-50.1) % Plt Count 258 (140-400) K/mcL Neutrophils # 10.7 H (1.6-8.9) K/mcL BMP 10/05/18 10/06/18 18:30 07:06 Sodium 138 141 Potassium 5.4 H 5.0 Chloride 109 H 105 Carbon Dioxide 27 29 BUN 48 H 45 H Creatinine 1.83 H 1.88 H Glucose 249 H 244 H Calcium 8.8 8.7 - ABG Interpretation ABG results: ABG ABG pH 7.31 pH Units (7.32-7.45) L 10/05/18 09:05 ABG pCO2 66 mmHg (35-45) H 10/05/18 09:05 ABG pO2 87 mmHg (85-104) 10/05/18 09:05 ABG O2 Saturation 95 % (95-98) 10/05/18 09:05 PT/INR, D-dimer PT 12.6 Seconds (9.4-12.1) H 10/01/18 11:07 Consult Discharge Plan - Plan [facility]errals: [facility] [Primary Care Provider] - (1) Acute and chronic respiratory failure Qualifiers: Respiratory failure complication: hypoxia Qualified Code(s): J96.21 - Acute and chronic respiratory failure with hypoxia (4) DMII (diabetes mellitus, type 2) Qualifiers: Diabetes mellitus care home insulin use: without exterminator use Diabetes me llitus complication status: with kidney complications Chronic kidney disease stage: stage 3 (moderate) (5) Lung cancer Qualifiers: Laterality: right Lung location: lower lobe of lung Qualified Code(s): C34.31 - Malignant neoplasm of lower lobe, right bronchus or lung (6) HLD (hyperlipidemia) Qualifiers: Hyperlipidemia type: unspecified Qualified Code(s): E78.5 - Hyperlipidemia, unspecified (7) Hypertension Qualifiers: Hypertension type: unspecified Qualified Code(s): I10 - Essential (primary) hypertension (8) Pbgnh-yi-kedyjdm kidney injury Qualifiers: Acute renal failure type: unspecified Chronic kidney disease stage: stage 3 (moderate) Qualified Code(s): N17.9 - Acute kidney failure, unspecified; N18.3 - Chronic kidney disease, stage 3 (moderate) (9) Constipation Qualifiers: Constipation type: drug induced constipation Qualified Code(s): K59.03 - Drug induced constipation
[2018-10-06] MEDS: D5% in 0.9% NACL 1,000 ML IVC SCH (16:15)
--- NOTE | 2018-10-06 16:58 | Oncology Inp Progress Note ---
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 He was on on adjuvant durvalumab x 10 cycles 03/17/2018-08/21/2018 which was subsequently stopped secondary to pneumonitis. CT of the chest without contrast reveals: 1. Worsening consolidation and volume loss throughout the right lung with obstruction of the right upper lobe bronchi and right interlobar bronchus. It is difficult to assess if this is related to soft tissue mass versus mucoid impaction given respiratory motion artifact. There is also increasing partially loculated moderate right pleural effusion. There is a focus of gas within the right lower lobe which may be related to infection or loculated pneumothorax. 2. Slight interval increase in size of a right paratracheal lymph node. Overall, there appears to be increased soft tissue prominence in the right hilum when compared to the prior exam. These findings raise suspicion for progression of malignancy. 3. Indeterminate 12 mm ground-glass nodule in the lingula. Trace left pleural effusion with patchy consolidative and ground-glass opacities in the left lung, likely infectious or inflammatory in etiology. Attention on follow-up exams is recommended. Plan: CT imaging concerning for infectious vs. malignant etiology S/P bronchoscopy during admission at [place] end of August/Beginning of September was without significant findings according to most recent office note S/P thoracentesis with drainage of 1.4L fluid, cytology is negative for malignancy Bronchoscopy 10/05/2018 which revealed extrinsic compression in the right upper lobe secondary to posterior mass effect, no endobronchial lesion, mucosal inflammation, copious secretions in the left mainstem bronchus, no BAL obtained since patient was desaturating, no other specimens collected Further recommendations per Dr. Mc, likely plan for repeat CT imaging in about 6-8 weeks time, to consider repeat bronchoscopy with biopsy Overall, respiratory function appears to be improving with ATB, systemic steroids and bronchodilator support Qualifiers: Laterality: right Lung location: lower lobe of lung Qualified Code(s): C34.31 - Malignant neoplasm of lower lobe, right bronchus or lung Oncology: Subj Interval history: Mr. Carter is resting in a chair. No family present currently. He is maintaining adequate O2 sats on nasal cannula at 4L. He denies pain and continues to feel improved since admission. Respiratory function improved following thoracentesis and bronchoscopy. - Constitutional General appearance: cooperative, no acute distress, no febrile - Head Head exam: Present: atraumatic - ENT ENT exam: Present: mucous membranes moist, normal oropharynx - Respiratory Respiratory exam: Present: decreased breath sounds. Absent: respiratory distres s - Cardiovascular Cardiovascular exam: Present: RRR - GI/Abdominal GI/Abdominal exam: Present: normal bowel sounds, soft. Absent: tenderness - Extremities Exam Extremities exam: Present: normal inspection. Absent: calf tenderness - Neurological Exam Neurological exam: Present: alert, oriented X3, no focal deficits, strengths equal and symetr throughout - Psychiatric Psychiatric exam: Present: normal affect, normal mood - Skin Skin exam: Present: dry, normal color, warm Oncology: Obj Data - Labs CBC & Chem 7: 10/06/18 07:06 10/06/18 07:06 Consult Discharge Plan - Plan [facility] [Primary Care Provider[facility] - Inpatient Charges Provider: Dr. Chad Mc <Jose Manuel Mc S - Last Filed: 10/06/18 21:05> Date of Encounter: 10/06/18 Oncology: Obj Data - Labs CBC & Chem 7: 10/06/18 07:06 10/06/18 07:06 Inpatient Charges Provider: Dr. Chad Mc Follow up - Inpatient: [id number] - Attending Attestation I examined this patient and my medical decision-making was reviewed with the Advanced Practice Nurse. I agree with the documented findings, disposition and treatment plan as described except to the extent set forth below. Bo appears to be recovering. He is sitting up in the chair on 4 L of option second 97. He is breathing currently. Cough is still productive of white-yellow sputum. No further fever. Exam reveals diminished breath sounds with rhonchi bilaterally. Heart regular rate and rhythm. Overall, he appears to be recovering with supportive measures approximate pressure antibiotics for presumed hospital- acquired pneumonia, recent bronchoscopy to address mucus plugging as well as prednisone in case of a component of immunotherapy-related pneumonitis. He is status post thoracentesis without evidence of malignant cytology. I recommend repeat CT imaging in 6-8 weeks' time to reevaluate lung parenchyma and effusion. I will order this as an outpatient. Continue steroid taper over 6 weeks. We will otherwise sign off.
[2018-10-07] MEDS: Piperacillin/Tazobactam 3.375 GM in 0.9 % Sodium Chloride Mini Bag 100 ML IVPB SCH ×3 (00:01→16:10)
[2018-10-07] MEDS: Ipratropium/Albuterol Neb 3 ML IH SCH ×7 (01:26→23:28)
[2018-10-07] MEDS: Melatonin 3 MG TABLET PO PRN ×2 (01:54→21:16)
[2018-10-07] MEDS: MethylPREDNISolone 40 MG/ML VIAL IVP SCH ×2 (05:44→18:29)
[2018-10-07] MEDS: *HR* Heparin 5,000 UNIT/ML VIAL SQ SCH ×2 (05:44→18:29)
[2018-10-07] MEDS: Budesonide/Formoterol 160/4.5 1 PUFF INH IH SCH ×2 (07:46→20:46)
[2018-10-07] MEDS: Insulin LISPRO 300 UNITS/3 ML VIAL SQ SCH ×4 (08:36→21:17)
[2018-10-07] MEDS: Aspirin Enteric Coated 81 MG Tablet PO SCH (08:42)
[2018-10-07] MEDS: Gabapentin 300 MG CAPSULE PO SCH ×2 (08:42→21:16)
[2018-10-07] MEDS: Sennosides/Docusate Sodium TABLET PO SCH ×2 (08:42→21:16)
[2018-10-07] MEDS: Metoprolol XL (24 HR) Succ 50 MG TAB.ER.24H PO SCH (08:43)
[2018-10-07] MEDS: Insulin DETEMIR 100 UNIT/ML X5UNITS SQ SCH ×2 (08:43→21:16)
[2018-10-07] MEDS: amLODIPine 5 MG TABLET PO SCH (08:43)
--- NOTE | 2018-10-07 11:22 | Pulmonology Progress Note ---
Date of Encounter: 10/07/18 Time of Encounter: 11:21 Assessment and Plan (1) Acute and chronic respiratory failure Current Visit: Yes Status: Acute This appears to be improving patient was 100% oxygen saturation on 3 L which can be weaned to keep saturation greater than 92% Qualifiers: Respiratory failure complication: hypoxia Qualified Code(s): J96.21 - Acute and chronic respiratory failure with hypoxia (2) HCAP (healthcare-associated pneumonia) Current Visit: No Status: Acute He is on broad-spectrum antibiotics cultures as far remains negative will need to 7-10 day course based upon clinical response can likely be de-escalated to respiratory fluoroquinolone or Augmentin to complete coverage (3) COPD exacerbation Current Visit: Yes Status: Acute He will benefit from aggressive bronchopulmonary hygiene will start Aerobika we will schedule bronchodilators encourage patient to engage in airway clearance as well with incentive spirometry out of bed to chair and ambulation/PT OT consultation Recommend transitioning from IV to oral prednisone (4) Lung cancer Current Visit: No Status: Chronic Status post bronchoscopy was noted extrinsic compression of the right upper lobe and bronchus intermedius with mucus plugging. Oncology is following his establish with there service May need repeat bronchoscopy down the line. Recommend outpatient pulmonary follow-up in 2-4 weeks of the time of discharge. Patient should be on a steroid taper over the next 3 weeks ideally until clinic follow-up Pulmonary will sign off call with any questions Qualifiers: Laterality: right Lung location: lower lobe of lung Qualified Code(s): C34.31 - Malignant neoplasm of lower lobe, right bronchus or lung Subjective Principal diagnosis: acute on chronic respiratory failure Interval history: When I examined the patient he was sitting up in a chair he says he is feeling good breathing is improving slowly he denies any complaints he has had difficulty expectorating phlegm Objective PUL Vital signs: Last Vital Signs Temp 97.6 F 10/07/18 11:08 Pulse 71 10/07/18 11:08 Resp 18 10/07/18 11:08 BP 135/73 10/07/18 11:08 Pulse Ox 100 10/07/18 11:08 General appearance: no acute distress Eyes: nonicteric Auscultation: right: diminished breath sounds, bilateral: wheezes (Faint expiratory wheezes with prolonged expiratory phase), rhonchi Cardiovascular: regular rate and rhythm Gastrointestinal: normoactive bowel sounds Integumentary: normal Extremities: no cyanosis, edema Musculoskeletal: no deformities normal mental status, non-focal exam mood appropriate Results - Laboratory Findings CBC and BMP: 10/07/18 11:58 10/06/18 07:06 ABG ABG pH 7.31 pH Units (7.32-7.45) L 10/05/18 09:05 ABG pCO2 66 mmHg (35-45) H 10/05/18 09:05 ABG pO2 87 mmHg (85-104) 10/05/18 09:05 ABG O2 Saturation 95 % (95-98) 10/05/18 09:05 PT/INR, D-dimer PT 12.6 Seconds (9.4-12.1) H 10/01/18 11:07 Abnormal lab findings: Abnormal lab results WBC 12.6 K/mcL (4.3-11.1) H 10/06/18 07:06 RBC 3.49 M/mcL (4.19-5.50) L 10/06/18 07:06 Hgb 10.3 g/dL (12.9-16.9) L 10/06/18 07:06 Hct 34.0 % (37.5-50.1) L 10/06/18 07:06 MCHC 30.3 g/dL (31.6-35.5) L 10/06/18 07:06 MPV 8.9 fL (9.4-12.4) L 10/05/18 08:04 10.7 K/mcL (1.6-8.9) H 10/06/18 07:06 0.4 K/mcL (0.6-4.6) L 10/05/18 08:04 Nucleated RBCs/100 WBC 0.2 /100 WBC (0) H 10/03/18 08:26 PT 12.6 Seconds (9.4-12.1) H 10/01/18 11:07 ABG pH 7.31 pH Units (7.32-7.45) L 10/05/18 09:05 ABG pCO2 66 mmHg (35-45) H 10/05/18 09:05 ABG pO2 78 mmHg (85-104) L 10/03/18 18:12 ABG HCO3 34 mEq/L (21-27) H 10/05/18 09:05 ABG Total CO2 36 mEq/L (20-26) H 10/05/18 09:05 ABG O2 Saturation 93 % (95-98) L 10/03/18 18:12 ABG Base Excess 6 mEq/L (-2 to 3) H 10/05/18 09:05 Sodium 134 mEq/L (136-145) L 10/01/18 07:45 Potassium 5.4 mEq/L (3.5-5.1) H 10/05/18 18:30 Chloride 109 mEq/L (98-107) H 10/05/18 18:30 BUN 45 mg/dL (8-23) H 10/06/18 07:06 1.88 mg/dL (0.70-1.30) H 10/06/18 07:06 Est GFR ( Amer) 42 (> 60) L 10/06/18 07:06 Est GFR (Non-Af Amer) 35 (> 60) L 10/06/18 07:06 28 (6-26) H 10/05/18 05:18 Glucose 244 mg/dL (70-105) H 10/06/18 07:06 POC Glucose 220 mg/dL (70-99) H 10/06/18 12:12 312 (280-300) H 10/06/18 07:06 Calcium 8.3 mg/dL (8.6-10.3) L 10/05/18 05:18 Phosphorus 4.9 mg/dL (2.7-4.5) H 10/02/18 06:10 Iron 52 mcg/dL (65-175) L 10/05/18 05:18 161 mg/dL (203-362) L 10/05/18 05:18 680 ng/mL (20-250) H 10/05/18 05:18 0.04 ng/mL (< 0.04) H* 10/04/18 09:17 3.3 g/dL (3.5-5.7) L 09/30/18 07:23 1.0 (1.1-2.2) L 09/30/18 07:23 1.59 ng/mL (0.00-0.15) H 10/03/18 17:37 Turbid (Clear) A 10/01/18 06:15 100 mg/dL (Neg-Trace) H 10/01/18 06:15 250 mg/dL (Normal) H 10/01/18 06:15 Moderate (Negative) H 10/01/18 06:15 Ur Leukocyte Esterase Small (Negative) H 10/01/18 06:15 5-15 per hpf (0-3) H 10/01/18 06:15 30-50 per hpf (0-3) H 10/01/18 06:15 Ur Squamous Epith Cells Many per lpf (None-Few) H 10/01/18 06:15 Positive (Negative) A 10/04/18 00:05 Vancomycin Trough 19 mcg/mL (5-10) H 10/02/18 08:16 - Microbiology Findings Microbiology Findings: Microbiology, Last 48 Hours 09/30/18 07:23 Blood Culture - Final Peripheral Venipuncture No growth. Final report. 09/30/18 07:32 Blood Culture - Final Peripheral Venipuncture No growth. Final report. - Diagnostic Findings Chest x-ray: report reviewed, image reviewed CT scan - chest: report reviewed, image reviewed - Clinical Findings Intake & Output: Intake & Output 10/06/18 10/07/18 10/07/18 23:59 07:59 15:59 Intake Total 1100 / 1420 100 / 460 360 / 460 Output Total 550 / 1900 450 / 1450 1000 / 1450 Balance 550 / -480 -350 / -990 -640 / -990 Weight 97.9 kg Consult Discharge Plan - Plan [facility]errals: [facility] [Primary Care Provider] -
--- NOTE | 2018-10-07 11:38 | Internal Med Progress Note ---
Hospitalist Progress Note - Encounter Date of Encounter: 10/07/18 Time of Encounter: 11:35 - Subjective Interval History: Patient seen and examined earlier today. resting in chair and sleeping comfortably. He is easily arousable but confused compared to previous day. Unclear if pt wore his bipap overnight. Pt easily arousable but not able to converse appropriately as he continues to fall asleep in the middle of a sentence. Will obtain repeat ABG pulmonary follow up has been requested No overnight events reported - Exam Vitals: Temp Pulse Resp BP Pulse Ox 97.6 F 71 18 135/73 100 10/07/18 11:08 10/07/18 11:08 10/07/18 11:08 10/07/18 11:08 10/07/18 11:08 Exam: Vitals: Reviewed General: Somnolent but easily arousable, In no distress Cardiovascular: Irregularly irregular, normal S1 & S2, no rubs, murmurs or gallops. Lungs: No wheezes, or crackles, equal air entry bilaterally, no rales Abdomen: Soft, non-tender, no rigidity, normal bowel sounds Extremities: trace pedal edema, no tenderness Neurological: No focal neurological abnormality. Rest of the physical exam is non contributory - Assessment and Plan (1) Acute and chronic respiratory failure Current Visit: Yes Status: Acute Assessment and Plan: Clinically improving Respiratory failure likely multifactorial in the setting of PNA and underlying lung ca pulmonology on board and evaluation appreciated continue Solumedrol 40mg IV q12h will defer to pulm for steroid tapering s/p right sided thoracentesis with removal of 1.5L fluid on 10/04/18 s/p bronchoscopy on 10/05/18 reporting compression of right upper lobe. Will f/u with pulmonology continue O2 supplementation and closely monitor O2 saturation with goal O2 sat 88-92% continue symbicort and singular On bronchodilators Q4RT scheduled will closely monitor respiratory status (2) HCAP (healthcare-associated pneumonia) Current Visit: No Status: Acute Assessment and Plan: continue IV abx blood cultures reporting no growth (3) COPD exacerbation Current Visit: Yes Status: Acute Assessment and Plan: continue systemic steroids and bronchodilator support (4) DMII (diabetes mellitus, type 2) Current Visit: No Status: Chronic Assessment and Plan: continue basal and sliding scale insulin increased to medium dose insulin sliding scale monitor FS and BG ADA diet (5) Lung cancer Current Visit: No Status: Chronic Assessment and Plan: 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 (PET/CT 12/28/2017 revealed resolution of the 2 pulmonary lesions. PET/CT findings also raise concern of possible esophageal lesion.) chemoradiotherapy with weekly Carboplatin/Paclitaxel completed 02/17/2018 Adjuvant durvalumab x 10 cycles 03/17/2018-08/21/2018. Stopped secondary to pneumonitis hematology/oncology evaluation appreciated continue management as per oncology (6) HLD (hyperlipidemia) Current Visit: Yes Status: Chronic Assessment and Plan: On atorvastatin 40 mg daily at bedtime. (7) Hypertension Current Visit: Yes Status: Chronic Assessment and Plan: BP within acceptable range continue current management closely monitor BP (8) Czsib-[id number]-lwlcbxh kidney injury Current Visit: Yes Status: Acute Assessment and Plan: will f/u labs from today Off vancomycin. will continue to re-assess kidney function in the morning (9) Constipation Current Visit: Yes Status: Resolved Assessment and Plan: laxative support as needed DVT Prophylaxis: Heparin sQ - Time Spent with Patient Total time spent is greater than 50% in coordination of care (as documented) at patient's floor/unit and/or counseling patient: 25 - 35 minutes Plan of Care Discussed with: patient (patient/RN/consulting provider) Internal Medicine: Result - Labs CBC & Chem 7: 10/06/18 07:06 10/06/18 07:06 - ABG Interpretation ABG results: ABG ABG pH 7.31 pH Units (7.32-7.45) L 10/05/18 09:05 ABG pCO2 66 mmHg (35-45) H 10/05/18 09:05 ABG pO2 87 mmHg (85-104) 10/05/18 09:05 ABG O2 Saturation 95 % (95-98) 10/05/18 09:05 PT/INR, D-dimer PT 12.6 Seconds (9.4-12.1) H 10/01/18 11:07 Consult Discharge Plan - Plan [facility]errals: [facility] [Primary Care Provider] - (1) Acute and chronic respiratory failure Qualifiers: Respiratory failure complication: hypoxia Qualified Code(s): J96.21 - Acute and chronic respiratory failure with hypoxia (4) DMII (diabetes mellitus, type 2) Qualifiers: Diabetes mellitus retirement insulin use: without retirement use Diabetes mellitus complication status: with kidney complications Chronic kidney disease stage: stage 3 (moderate) (5) Lung cancer Qualifiers: Laterality: right Lung location: lower lobe of lung Qualified Code(s): C34.31 - Malignant neoplasm of lower lobe, right bronchus or lung (6) HLD (hyperlipidemia) Qualifiers: Hyperlipidemia type: unspecified Qualified Code(s): E78.5 - Hyperlipidemia, unspecified (7) Hypertension Qualifiers: Hypertension type: unspecified Qualified Code(s): I10 - Essential (primary) hypertension (8) Flhub-jz-fbljrai kidney injury Qualifiers: Acute renal failure type: unspecified Chronic kidney disease stage: stage 3 (moderate) Qualified Code(s): N17.9 - Acute kidney failure, unspecified; N18.3 - Chronic kidney disease, stage 3 (moderate) (9) Constipation Qualifiers: Constipation type: drug induced constipation Qualified Code(s): K59.03 - Drug induced constipation
[2018-10-07 12:19] LABS: Basophils % 0.1 %; Eosinophils % 0.1 %; Hematocrit 33.4 % (37.5-50.1); Hemoglobin 10.1 g/dL (12.9-16.9); Immature Granulocytes % 1.8 % (0-4); Lymphocytes # 0.5 K/mcL (0.6-4.6); Lymphocytes % 4.7 %; Mean Corpuscular HGB Conc 30.2 g/dL (31.6-35.5); Mean Corpuscular Hemoglobin 29.3 pg (28.0-33.3); Mean Corpuscular Volume 96.8 fL (83.0-100.0); Mean Platelet Volume 9.4 fL (9.4-12.4); Monocytes # 0.3 K/mcL (0.0-1.3); Monocytes % 2.8 %; Platelet Count 248 K/mcL (140-400); Red Blood Count 3.45 M/mcL (4.19-5.50); Red Cell Distribution Width 14.5 % (11.5-14.5); Segmented Neutrophils % 90.5 %
[2018-10-07 12:40] LABS: Calcium 8.2 mg/dL (8.6-10.3); Magnesium 1.8 mg/dL (1.6-2.6); Phosphorous 4.2 mg/dL (2.7-4.5); Potassium 4.6 mEq/L (3.5-5.1)
[2018-10-08] MEDS: Piperacillin/Tazobactam 3.375 GM in 0.9 % Sodium Chloride Mini Bag 100 ML IVPB SCH ×3 (00:09→17:31)
[2018-10-08 03:00] LABS: Basophils % 0.2 %; Eosinophils % 0.1 %; Hematocrit 33.7 % (37.5-50.1); Hemoglobin 10.4 g/dL (12.9-16.9); Immature Granulocytes % 1.9 % (0-4); Lymphocytes # 0.5 K/mcL (0.6-4.6); Lymphocytes % 4.2 %; Mean Corpuscular HGB Conc 30.9 g/dL (31.6-35.5); Mean Corpuscular Hemoglobin 29.4 pg (28.0-33.3); Mean Corpuscular Volume 95.2 fL (83.0-100.0); Mean Platelet Volume 9.9 fL (9.4-12.4); Monocytes # 0.3 K/mcL (0.0-1.3); Monocytes % 2.9 %; Neutrophils # 10.5 K/mcL (1.6-8.9); Platelet Count 274 K/mcL (140-400); Red Blood Count 3.54 M/mcL (4.19-5.50); Red Cell Distribution Width 14.4 % (11.5-14.5); Segmented Neutrophils % 90.7 %
[2018-10-08 03:18] LABS: Calcium 8.4 mg/dL (8.6-10.3); Magnesium 1.7 mg/dL (1.6-2.6); Phosphorous 4.1 mg/dL (2.7-4.5); Potassium 4.4 mEq/L (3.5-5.1)
[2018-10-08] MEDS: Ipratropium/Albuterol Neb 3 ML IH SCH ×5 (04:06→20:20)
[2018-10-08] MEDS: *HR* Heparin 5,000 UNIT/ML VIAL SQ SCH ×2 (06:09→17:30)
[2018-10-08] MEDS: MethylPREDNISolone 40 MG/ML VIAL IVP SCH (06:09)
[2018-10-08] MEDS: Budesonide/Formoterol 160/4.5 1 PUFF INH IH SCH ×2 (07:37→20:20)
[2018-10-08] MEDS: Insulin LISPRO 300 UNITS/3 ML VIAL SQ SCH ×4 (07:47→20:40)
[2018-10-08] MEDS: Gabapentin 300 MG CAPSULE PO SCH ×2 (09:58→20:39)
[2018-10-08] MEDS: Sennosides/Docusate Sodium TABLET PO SCH ×2 (09:58→20:39)
[2018-10-08] MEDS: Metoprolol XL (24 HR) Succ 50 MG TAB.ER.24H PO SCH (09:58)
[2018-10-08] MEDS: Aspirin Enteric Coated 81 MG Tablet PO SCH (09:58)
[2018-10-08] MEDS: amLODIPine 5 MG TABLET PO SCH (09:58)
[2018-10-08] MEDS: Insulin DETEMIR 100 UNIT/ML X5UNITS SQ SCH ×2 (09:59→20:40)
--- NOTE | 2018-10-08 10:21 | Internal Med Progress Note ---
Hospitalist Progress Note - Encounter Date of Encounter: 10/08/18 Time of Encounter: 10:18 - Subjective Interval History: Patient seen and examined earlier this morning. Sitting in bed, AAO x 3. Yesterday pt was reported of receiving his bedtime dose of Melatonin extremely late which contributed to his somnolent status yesterday. He reports of feeling weak but reports improvement in his breathing. Denies any chest pain, abd pain,n/v, fever, or chills. No overnight events reported. Ten point ROS is negative except as listed above - Exam Vitals: Temp Pulse Resp BP Pulse Ox 97.8 F 70 18 144/71 91 10/08/18 07:20 10/08/18 07:20 10/08/18 07:37 10/08/18 07:20 10/08/18 07:37 Exam: Vitals: Reviewed General: AAO x 3, in no distress Cardiovascular: Irregularly irregular, normal S1 & S2, no rubs, murmurs or gallops. Lungs: No wheezes, or crackles, equal air entry bilaterally Abdomen: Soft, non-tender, no rigidity, normal bowel sounds Extremities: trace pedal edema, no tenderness Neurological: No focal neurological abnormality. Rest of the physical exam is non contributory - Assessment and Plan (1) Acute and chronic respiratory failure Current Visit: Yes Status: Acute Assessment and Plan: Clinically improving Respiratory failure likely multifactorial in the setting of PNA and underlying lung ca pulmonology on board and evaluation appreciated continue Solumedrol 40mg IV q12h will start on Prednisone 40mg PO qdaily in am s/p right sided thoracentesis with removal of 1.5L fluid on 10/04/18 s/p bronchoscopy on 10/05/18 reporting compression of right upper lobe. continue O2 supplementation and closely monitor O2 saturation with goal O2 sat 88-92% continue symbicort and singular On bronchodilators Q4RT scheduled will closely monitor respiratory status (2) HCAP (healthcare-associated pneumonia) Current Visit: No Status: Acute Assessment and Plan: continue IV abx blood cultures reporting no growth (3) COPD exacerbation Current Visit: Yes Status: Acute Assessment and Plan: continue systemic steroids and bronchodilator support (4) DMII (diabetes mellitus, type 2) Current Visit: No Status: Chronic Assessment and Plan: continue basal and sliding scale insulin continue medium dose insulin sliding scale monitor FS and BG ADA diet (5) Lung cancer Current Visit: No Status: Chronic Assessment and Plan: 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 (PET/CT 12/28/2017 revealed resolution of the 2 pulmonary lesions. PET/CT findings also raise concern of possible esophageal lesion.) chemoradiotherapy with weekly Carboplatin/Paclitaxel completed 02/17/2018 Adjuvant durvalumab x 10 cycles 03/17/2018-08/21/2018. Stopped secondary to pneumonitis hematology/oncology evaluation appreciated continue management as per oncology (6) HLD (hyperlipidemia) Current Visit: Yes Status: Chronic Assessment and Plan: On atorvastatin 40 mg daily at bedtime. (7) Hypertension Current Visit: Yes Status: Chronic Assessment and Plan: BP within acceptable range continue current management closely monitor BP (8) Iroyb-oh-fvhrqkp kidney injury Current Visit: Yes Status: Acute Assessment and Plan: renal function improved from previous day will continue to re-assess kidney function in the morning (9) Constipation Current Visit: Yes Status: Resolved Assessment and Plan: laxative support as needed DVT Prophylaxis: Heparin sQ - Time Spent with Patient Total time spent is greater than 50% in coordination of care (as documented) at patient's floor/unit and/or counseling patient: 25 - 35 minutes Plan of Care Discussed with: patient (patient/RN) Internal Medicine: Result - Labs CBC & Chem 7: 10/08/18 01:49 10/08/18 01:49 Labs: Short CBC 10/07/18 10/08/18 Range/Units 11:58 01:49 WBC 10.0 11.6 H (4.3-11.1) K/mcL Hgb 10.1 L 10.4 L (12.9-16.9) g/dL Hct 33.4 L 33.7 L (37.5-50.1) % Plt Count 248 274 (140-400) K/mcL Neutrophils # 9.0 H 10.5 H (1.6-8.9) K/mcL BMP 10/07/18 10/08/18 11:58 01:49 Sodium 139 140 Potassium 4.6 4.4 Chloride 104 102 Carbon Dioxide 31 H 29 BUN 42 H 42 H Creatinine 1.90 H 1.85 H Glucose 153 H 163 H Calcium 8.2 L 8.4 L - ABG Interpretation ABG results: ABG ABG pH 7.31 pH Units (7.32-7.45) L 10/05/18 09:05 ABG pCO2 66 mmHg (35-45) H 10/05/18 09:05 ABG pO2 87 mmHg (85-104) 10/05/18 09:05 ABG O2 Saturation 95 % (95-98) 10/05/18 09:05 PT/INR, D-dimer PT 12.6 Seconds (9.4-12.1) H 10/01/18 11:07 Consult Discharge Plan - Plan Referrals: [facility] [Primary Care Provider] - (1) Acute and chronic respiratory failure Qualifiers: Respiratory failure complication: hypoxia Qualified Code(s): J96.21 - Acute and chronic respiratory failure with hypoxia (4) DMII (diabetes mellitus, type 2) Qualifiers: Diabetes mellitus [facility] insulin use: without [facility] use Diabetes mellitus complication status: with kidney complications Chronic kidney disease stage: stage 3 (moderate) (5) Lung cancer Qualifiers: Laterality: right Lung location: lower lobe of lung Qualified Code(s): C34.31 - Malignant neoplasm of lower lobe, right bronchus or lung (6) HLD (hyperlipidemia) Qualifiers: Hyperlipidemia type: unspecified Qualified Code(s): E78.5 - Hyperlipidemia, unspecified (7) Hypertension Qualifiers: Hypertension type: unspecified Qualified Code(s): I10 - Essential (primary) hypertension (8) Chndd-vg-ftgrnat kidney injury Qualifiers: Acute renal failure type: unspecified Chronic kidney disease stage: stage 3 (moderate) Qualified Code(s): N17.9 - Acute kidney failure, unspecified; N18.3 - Chronic kidney disease, stage 3 (moderate) (9) Constipation Qualifiers: Constipation type: drug induced constipation Qualified Code(s): K59.03 - Drug induced constipation
[2018-10-09] MEDS: Ipratropium/Albuterol Neb 3 ML IH SCH ×7 (00:02→23:46)
[2018-10-09] MEDS: Piperacillin/Tazobactam 3.375 GM in 0.9 % Sodium Chloride Mini Bag 100 ML IVPB SCH ×4 (00:26→23:59)
[2018-10-09] MEDS: *HR* Heparin 5,000 UNIT/ML VIAL SQ SCH ×2 (06:12→16:47)
[2018-10-09 06:37] LABS: Basophils % 0.2 %; Eosinophils # 0.2 K/mcL (0.0-0.6); Eosinophils % 1.2 %; Hematocrit 35.6 % (37.5-50.1); Hemoglobin 11.1 g/dL (12.9-16.9); Immature Granulocytes % 1.8 % (0-4); Lymphocytes # 1.8 K/mcL (0.6-4.6); Lymphocytes % 12.6 %; Mean Corpuscular HGB Conc 31.2 g/dL (31.6-35.5); Mean Corpuscular Hemoglobin 29.4 pg (28.0-33.3); Mean Corpuscular Volume 94.2 fL (83.0-100.0); Mean Platelet Volume 9.9 fL (9.4-12.4); Monocytes # 1.1 K/mcL (0.0-1.3); Monocytes % 7.8 %; Neutrophils # 10.8 K/mcL (1.6-8.9); Platelet Count 295 K/mcL (140-400); Red Blood Count 3.78 M/mcL (4.19-5.50); Red Cell Distribution Width 14.6 % (11.5-14.5); Segmented Neutrophils % 76.4 %
[2018-10-09 06:58] LABS: Calcium 8.6 mg/dL (8.6-10.3); Magnesium 1.7 mg/dL (1.6-2.6); Phosphorous 3.7 mg/dL (2.7-4.5); Potassium 4.4 mEq/L (3.5-5.1)
[2018-10-09] MEDS: Budesonide/Formoterol 160/4.5 1 PUFF INH IH SCH ×2 (07:26→20:24)
[2018-10-09] MEDS: Insulin LISPRO 300 UNITS/3 ML VIAL SQ SCH ×4 (07:45→20:53)
[2018-10-09] MEDS: Insulin DETEMIR 100 UNIT/ML X5UNITS SQ SCH ×2 (07:47→20:56)
[2018-10-09] MEDS: predniSONE 20 MG TABLET PO SCH (07:56)
[2018-10-09] MEDS: Gabapentin 300 MG CAPSULE PO SCH ×2 (07:56→20:55)
[2018-10-09] MEDS: Metoprolol XL (24 HR) Succ 50 MG TAB.ER.24H PO SCH (07:56)
[2018-10-09] MEDS: amLODIPine 5 MG TABLET PO SCH (07:56)
[2018-10-09] MEDS: Aspirin Enteric Coated 81 MG Tablet PO SCH (07:56)
[2018-10-09] MEDS: Sennosides/Docusate Sodium TABLET PO SCH ×2 (07:56→20:55)
[2018-10-09 09:06] LABS: ABG Base Excess 3 mEq/L (-2 to 3); ABG HCO3 30 mEq/L (21-27); ABG Oxygen Saturation 95 % (95-98); ABG PCO2 53 mmHg (35-45); ABG PH 7.36 pH Units (7.32-7.45); ABG PO2 81 mmHg (85-104); ABG TCO2 31 mEq/L (20-26); Blood Gas VT 600 cc
--- NOTE | 2018-10-09 10:52 | Internal Med Progress Note ---
Hospitalist Progress Note - Encounter Date of Encounter: 10/09/18 Time of Encounter: 08:20 - Subjective Interval History: Patient seen and examined with RN present at bedside. Pt was in his usual state of health until around 8am this morning, he became very somnolent requiring sternal rub for any response. He was noted to have FS glucose of 35 at 0739am and was given dextrose and orange juice with improvement in BG to 76. Pt was placed on bipap support and given another dose of dextrose. Pt started to improve after second dose of dextrose administration along with bipap support. Pt has been refusing to wear bipap overnight STAT ABG was done, which reported chronic primary compensated respiratory acidosis. I re-evaluated the patient later, he was easily awakened to verbal stimuli. Reported of feeling better since morning and stated he was tired. Ten point ROS is negative except as listed above - Exam Vitals: Temp Pulse Resp BP Pulse Ox 97.3 F L 63 16 163/110 90 10/09/18 07:39 10/09/18 07:39 10/09/18 07:39 10/09/18 07:39 10/09/18 07:39 Exam: Vitals: Reviewed General: AAO x 3, on bipap support Cardiovascular: Irregularly irregular, normal S1 & S2, no rubs, murmurs or gallops. Lungs: No wheezes, or crackles, decreased breath sounds Abdomen: Soft, non-tender, no rigidity, normal bowel sounds Extremities: trace pedal edema, no tenderness Neurological: No focal neurological abnormality. Rest of the physical exam is non contributory - Assessment and Plan (1) Acute and chronic respiratory failure Current Visit: Yes Status: Acute Assessment and Plan: Clinically improving Respiratory failure likely multifactorial in the setting of PNA and underlying lung ca pulmonology on board and evaluation appreciated started Prednisone 40mg PO qdaily today (day 1) s/p right sided thoracentesis with removal of 1.5L fluid on 10/04/18 s/p bronchoscopy on 10/05/18 reporting compression of right upper lobe. continue O2 supplementation and closely monitor O2 saturation with goal O2 sat 88-92% continue symbicort and singular On bronchodilators Q4RT scheduled will closely monitor respiratory status Pt encouraged to wear bipap at bedtime (2) HCAP (healthcare-associated pneumonia) Current Visit: No Status: Acute Assessment and Plan: continue IV abx blood cultures reporting no growth (3) COPD exacerbation Current Visit: Yes Status: Acute Assessment and Plan: continue systemic steroids and bronchodilator support (4) DMII (diabetes mellitus, type 2) Current Visit: No Status: Chronic Assessment and Plan: continue basal and sliding scale insulin continue medium dose insulin sliding scale monitor FS and BG Unclear reason for this morning's hypoglycemic episode as pt was noted to have FS Glucose of 146 prior to administration of HS levemir dose. Will closely monitor. Holding this morning's levemir dose. Will hold bedtime levemir dose if hypoglycemia occurs. 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 (PET/CT 12/28/2017 revealed resolution of the 2 pulmonary lesions. PET/CT findings also raise concern of possible esophageal lesion.) chemoradiotherapy with weekly Carboplatin/Paclitaxel completed 02/17/2018 Adjuvant durvalumab x 10 cycles 03/17/2018-08/21/2018. Stopped secondary to pneumonitis hematology/oncology evaluation appreciated continue management as per oncology (6) HLD (hyperlipidemia) Current Visit: Yes Status: Chronic Assessment and Plan: On atorvastatin 40 mg daily at bedtime. (7) Hypertension Current Visit: Yes Status: Chronic Assessment and Plan: Noted to be hypertensive this morning repeat BP improved: 152/83 continue current management closely monitor BP (8) Edbzc-bb-xdebdcp kidney injury Current Visit: Yes Status: Acute Assessment and Plan: renal function worsened from previous day will continue to re-assess kidney function in the morning this appears to be around patient's baseline CKD (9) Constipation Current Visit: Yes Status: Resolved Assessment and Plan: laxative support as needed DVT Prophylaxis: Heparin sQ - Time Spent with Patient Total time spent is greater than 50% in coordination of care (as documented) at patient's floor/unit and/or counseling patient: 40minutes Greater than 35 minutes Plan of Care Discussed with: patient (patient/RN) Internal Medicine: Result - Labs CBC & Chem 7: 10/09/18 05:16 10/09/18 05:16 Labs: Short CBC 10/09/18 Range/Units 05:16 WBC 14.1 H (4.3-11.1) K/mcL Hgb 11.1 L (12.9-16.9) g/dL Hct 35.6 L (37.5-50.1) % Plt Count 295 (140-400) K/mcL Neutrophils # 10.8 H (1.6-8.9) K/mcL BMP 10/09/18 05:16 Sodium 142 Potassium 4.4 Chloride 104 Carbon Dioxide 30 H BUN 42 H Creatinine 2.02 H Glucose 39 L* Calcium 8.6 - ABG Interpretation ABG results: ABG ABG pH 7.36 pH Units (7.32-7.45) 10/09/18 09:02 ABG pCO2 53 mmHg (35-45) H 10/09/18 09:02 ABG pO2 81 mmHg (85-104) L 10/09/18 09:02 ABG O2 Saturation 95 % (95-98) 10/09/18 09:02 PT/INR, D-dimer PT 12.6 Seconds (9.4-12.1) H 10/01/18 11:07 Consult Discharge Plan - Plan [facility]errals: [facility] [Primary Care Provider] - (1) Acute and chronic respiratory failure Qualifiers: Respiratory failure complication: hypoxia Qualified Code(s): J96.21 - Acute and chronic respiratory failure with hypoxia (4) DMII (diabetes mellitus, type 2) Qualifiers: Diabetes mellitus sider mechanic insulin use: without sider mechanic use Diabetes mellitus complication status: with kidney complications Chronic kidney disease stage: stage 3 (moderate) (5) Lung cancer Qualifiers: Laterality: right Lung location: lower lobe of lung Qualified Code(s): C34.31 - Malignant neoplasm of lower lobe, right bronchus or lung (6) HLD (hyperlipidemia) Qualifiers: Hyperlipidemia type: unspecified Qualified Code(s): E78.5 - Hyperlipidemia, unspecified (7) Hypertension Qualifiers: Hypertension type: unspecified Qualified Code(s): I10 - Essential (primary) hypertension (8) Xeojj-im-ammehmf kidney injury Qualifiers: Acute renal failure type: unspecified Chronic kidney disease stage: stage 3 (moderate) Qualified Code(s): N17.9 - Acute kidney failure, unspecified; N18.3 - Chronic kidney disease, stage 3 (moderate) (9) Constipation Qualifiers: Constipation type: drug induced constipation Qualified Code(s): K59.03 - Drug induced constipation
[2018-10-10] MEDS: Ipratropium/Albuterol Neb 3 ML IH SCH ×5 (04:24→19:51)
[2018-10-10] MEDS: *HR* Heparin 5,000 UNIT/ML VIAL SQ SCH ×2 (05:31→16:14)
[2018-10-10] MEDS: Budesonide/Formoterol 160/4.5 1 PUFF INH IH SCH ×2 (07:32→19:51)
[2018-10-10] MEDS: Insulin LISPRO 300 UNITS/3 ML VIAL SQ SCH ×4 (08:04→21:13)
[2018-10-10] MEDS: amLODIPine 5 MG TABLET PO SCH (08:09)
[2018-10-10] MEDS: Gabapentin 300 MG CAPSULE PO SCH ×2 (08:09→21:11)
[2018-10-10] MEDS: Aspirin Enteric Coated 81 MG Tablet PO SCH (08:09)
[2018-10-10] MEDS: Metoprolol XL (24 HR) Succ 50 MG TAB.ER.24H PO SCH (08:09)
[2018-10-10] MEDS: Insulin DETEMIR 100 UNIT/ML X5UNITS SQ SCH ×2 (08:09→21:12)
[2018-10-10] MEDS: Sennosides/Docusate Sodium TABLET PO SCH ×2 (08:09→21:12)
[2018-10-10] MEDS: predniSONE 20 MG TABLET PO SCH (08:09)
[2018-10-10] MEDS: Piperacillin/Tazobactam 3.375 GM in 0.9 % Sodium Chloride Mini Bag 100 ML IVPB SCH (08:09)
[2018-10-10 09:35] LABS: Basophils % 0.1 %; Eosinophils % 0.2 %; Hematocrit 33.2 % (37.5-50.1); Hemoglobin 10.3 g/dL (12.9-16.9); Immature Granulocytes % 0.7 % (0-4); Lymphocytes # 0.8 K/mcL (0.6-4.6); Lymphocytes % 4.6 %; Mean Corpuscular Hemoglobin 29.5 pg (28.0-33.3); Mean Corpuscular Volume 95.1 fL (83.0-100.0); Mean Platelet Volume 10.2 fL (9.4-12.4); Monocytes # 1.2 K/mcL (0.0-1.3); Monocytes % 7.1 %; Neutrophils # 14.5 K/mcL (1.6-8.9); Platelet Count 206 K/mcL (140-400); Red Blood Count 3.49 M/mcL (4.19-5.50); Red Cell Distribution Width 14.9 % (11.5-14.5); Segmented Neutrophils % 87.3 %
[2018-10-10 09:54] LABS: Calcium 8.2 mg/dL (8.6-10.3); Magnesium 1.7 mg/dL (1.6-2.6); Phosphorous 3.4 mg/dL (2.7-4.5); Potassium 4.1 mEq/L (3.5-5.1)
--- NOTE | 2018-10-10 10:44 | Internal Med Progress Note ---
Hospitalist Progress Note - Encounter Date of Encounter: 10/10/18 Time of Encounter: 10:40 - Subjective Interval History: Patient seen and examined earlier today. Resting in bed and saturating well on nasal cannula. No recurrent hypoglycemic episodes have been reported. Pt reports of feeling weak and frail, but states he is breathing comfortably. Denies any chest pain, abd pain, fever, or chills. No overnight events reported Ten point ROS is negative except as listed above - Exam Vitals: Temp Pulse Resp BP Pulse Ox 98.2 F 66 16 133/77 86 10/10/18 07:48 10/10/18 07:48 10/10/18 07:48 10/10/18 07:48 10/10/18 07:48 Exam: Vitals: Reviewed General: AAO x 3, on bipap support Cardiovascular: Irregularly irregular, normal S1 & S2, no rubs, murmurs or gallops. Lungs: No wheezes, decreased breath sounds Abdomen: Soft, non-tender, no rigidity, normal bowel sounds Extremities: trace pedal edema, no tenderness Neurological: No focal neurological abnormality. Rest of the physical exam is non contributory - Assessment and Plan (1) Acute and chronic respiratory failure Current Visit: Yes Status: Acute Assessment and Plan: Clinically improving Respiratory failure likely multifactorial in the setting of PNA and underlying lung ca pulmonology on board and evaluation appreciated continue Prednisone 40mg PO qdaily today (day 2) will d/c IV zosyn and start Augmentin to complete therapy for fourteen days (Day 1114) s/p right sided thoracentesis with removal of 1.5L fluid on 10/04/18 s/p bronchoscopy on 10/05/18 reporting compression of right upper lobe. continue O2 supplementation and closely monitor O2 saturation with goal O2 sat 88-92% continue symbicort and singular On bronchodilators Q4RT scheduled will closely monitor respiratory status Pulmonary follow up requested Pt encouraged to wear bipap at bedtime (2) HCAP (healthcare-associated pneumonia) Current Visit: No Status: Acute Assessment and Plan: will d/c IV zosyn and start Augmentin blood cultures reporting no growth (3) COPD exacerbation Current Visit: Yes Status: Acute Assessment and Plan: continue systemic steroids and bronchodilator support (4) DMII (diabetes mellitus, type 2) Current Visit: No Status: Chronic Assessment and Plan: continue basal and sliding scale insulin continue medium dose insulin sliding scale monitor FS and BG ADA diet (5) Lung cancer Current Visit: No Status: Chronic Assessment and Plan: 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 (PET/CT 12/28/2017 revealed resolution of the 2 pulmonary lesions. PET/CT findings also raise concern of possible esophageal lesion.) chemoradiotherapy with weekly Carboplatin/Paclitaxel completed 02/17/2018 Adjuvant durvalumab x 10 cycles 03/17/2018-08/21/2018. Stopped secondary to pneumonitis hematology/oncology evaluation appreciated continue management as per oncology (6) HLD (hyperlipidemia) Current Visit: Yes Status: Chronic Assessment and Plan: On atorvastatin 40 mg daily at bedtime. (7) Hypertension Current Visit: Yes Status: Chronic Assessment and Plan: BP within acceptable range continue current management closely monitor BP (8) Ndlma-mu-gugincl kidney injury Current Visit: Yes Status: Acute Assessment and Plan: renal function worsened from previous day will continue to re-assess kidney function in the morning this appears to be around patient's baseline CKD will closely monitor (9) Constipation Current Visit: Yes Status: Resolved Assessment and Plan: laxative support as needed DVT Prophylaxis: Heparin sQ - Time Spent with Patient Total time spent is greater than 50% in coordination of care (as documented) at patient's floor/unit and/or counseling patient: 25 - 35 minutes Plan of Care Discussed with: patient (patient/RN/pharmacist/case management) Internal Medicine: Result - Labs CBC & Chem 7: 10/10/18 09:08 10/10/18 09:08 Labs: Short CBC 10/10/18 Range/Units 09:08 WBC 16.6 H (4.3-11.1) K/mcL Hgb 10.3 L (12.9-16.9) g/dL Hct 33.2 L (37.5-50.1) % Plt Count 206 (140-400) K/mcL Neutrophils # 14.5 H (1.6-8.9) K/mcL BMP 10/10/18 09:08 Sodium 137 Potassium 4.1 Chloride 102 Carbon Dioxide 30 H BUN 44 H Creatinine 2.17 H Glucose 237 H Calcium 8.2 L - ABG Interpretation ABG results: ABG ABG pH 7.36 pH Units (7.32-7.45) 10/09/18 09:02 ABG pCO2 53 mmHg (35-45) H 10/09/18 09:02 ABG pO2 81 mmHg (85-104) L 10/09/18 09:02 ABG O2 Saturation 95 % (95-98) 10/09/18 09:02 PT/INR, D-dimer PT 12.6 Seconds (9.4-12.1) H 10/01/18 11:07 Consult Discharge Plan - Plan [facility]errals: [facility] [Primary Care Provider] - (1) Acute and chronic respiratory failure Qualifiers: Respiratory failure complication: hypoxia Qualified Code(s): J96.21 - Acute and chronic respiratory failure with hypoxia (4) DMII (diabetes mellitus, type 2) Qualifiers: Diabetes mellitus nursing home insulin use: without terminal block assembler use Diabetes mellitus complication status: with kidney complications Chronic kidney disease stage: stage 3 (moderate) (5) Lung cancer Qualifiers: Laterality: right Lung location: lower lobe of lung Qualified Code(s): C3 4.31 - Malignant neoplasm of lower lobe, right bronchus or lung (6) HLD (hyperlipidemia) Qualifiers: Hyperlipidemia type: unspecified Qualified Code(s): E78.5 - Hyperlipidemia, unspecified (7) Hypertension Qualifiers: Hypertension type: unspecified Qualified Code(s): I10 - Essential (primary) hypertension (8) Urjfg-cp-dczcvet kidney injury Qualifiers: Acute renal failure type: unspecified Chronic kidney disease stage: stage 3 (moderate) Qualified Code(s): N17.9 - Acute kidney failure, unspecified; N18.3 - Chronic kidney disease, stage 3 (moderate) (9) Constipation Qualifiers: Constipation type: drug induced constipation Qualified Code(s): K59.03 - Drug induced constipation
[2018-10-11] MEDS: Ipratropium/Albuterol Neb 3 ML IH SCH ×7 (00:16→23:54)
[2018-10-11] MEDS: *HR* Heparin 5,000 UNIT/ML VIAL SQ SCH ×2 (06:21→17:01)
[2018-10-11] MEDS: Budesonide/Formoterol 160/4.5 1 PUFF INH IH SCH ×2 (07:34→19:45)
[2018-10-11] MEDS: Insulin LISPRO 300 UNITS/3 ML VIAL SQ SCH ×4 (09:00→21:08)
[2018-10-11] MEDS: Sennosides/Docusate Sodium TABLET PO SCH ×2 (09:06→21:08)
[2018-10-11] MEDS: Metoprolol XL (24 HR) Succ 50 MG TAB.ER.24H PO SCH (09:06)
[2018-10-11] MEDS: Aspirin Enteric Coated 81 MG Tablet PO SCH (09:06)
[2018-10-11] MEDS: amLODIPine 5 MG TABLET PO SCH (09:06)
[2018-10-11] MEDS: Gabapentin 300 MG CAPSULE PO SCH ×2 (09:06→21:07)
[2018-10-11] MEDS: predniSONE 20 MG TABLET PO SCH (09:06)
[2018-10-11] MEDS: Insulin DETEMIR 100 UNIT/ML X5UNITS SQ SCH ×2 (09:07→21:08)
[2018-10-11 11:11] LABS: Basophils % 0.1 %; Eosinophils % 0.3 %; Hematocrit 30.4 % (37.5-50.1); Hemoglobin 9.6 g/dL (12.9-16.9); Immature Granulocytes % 0.6 % (0-4); Lymphocytes # 0.8 K/mcL (0.6-4.6); Lymphocytes % 5.7 %; Mean Corpuscular HGB Conc 31.6 g/dL (31.6-35.5); Mean Corpuscular Hemoglobin 29.4 pg (28.0-33.3); Mean Platelet Volume 9.7 fL (9.4-12.4); Monocytes % 7.2 %; Neutrophils # 11.5 K/mcL (1.6-8.9); Platelet Count 204 K/mcL (140-400); Red Blood Count 3.27 M/mcL (4.19-5.50); Red Cell Distribution Width 14.9 % (11.5-14.5); Segmented Neutrophils % 86.1 %
[2018-10-11 11:20] LABS: Calcium 8.1 mg/dL (8.6-10.3); Magnesium 1.8 mg/dL (1.6-2.6); Phosphorous 3.2 mg/dL (2.7-4.5); Potassium 4.1 mEq/L (3.5-5.1)
--- NOTE | 2018-10-11 11:37 | Internal Med Progress Note ---
Hospitalist Progress Note - Encounter Date of Encounter: 10/11/18 Time of Encounter: 11:34 - Subjective Interval History: Patient seen and examined earlier this morning. Resting in bed and states he feels better today. Breathing comfortably on nasal cannula. Denies any chest pain, fever, or chills. No overnight events reported Ten point ROS is negative except as listed balcony worker on board for placement, discharge placement has been started discharge pending placement Tentative d/c in am - Exam Vitals: Temp Pulse Resp BP Pulse Ox 98.6 F 75 17 107/69 93 10/11/18 11:15 10/11/18 11:15 10/11/18 11:18 10/11/18 11:15 10/11/18 11:18 Exam: Vitals: Reviewed General: AAO x 3, no acute distress Cardiovascular: Irregularly irregular, normal S1 & S2, no rubs, murmurs or gallops. Lungs: No wheezes, decreased breath sounds Abdomen: Soft, non-tender, no rigidity, normal bowel sounds Extremities: trace pedal edema, no tenderness Neurological: No focal neurological abnormality. Rest of the physical exam is non contributory - Assessment and Plan (1) Acute and chronic respiratory failure Current Visit: Yes Status: Acute Assessment and Plan: Clinically improving Respiratory failure likely multifactorial in the setting of PNA and underlying lung ca pulmonology on board and evaluation appreciated continue Prednisone 40mg PO qdaily today (day 3) continue Augmentin to complete therapy for fourteen days (Day 12/14) s/p right sided thoracentesis with removal of 1.5L fluid on 10/04/18 s/p bronchoscopy on 10/05/18 reporting compression of right upper lobe. continue O2 supplementation and closely monitor O2 saturation with goal O2 sat 88-92% continue symbicort and singular On bronchodilators Q4RT scheduled will closely monitor respiratory status I spoke with driller portable, who is recommending continuation of current management with outpatient follow up with oncology and pulmonology Pt encouraged to wear bipap at bedtime (2) HCAP (healthcare-associated pneumonia) Current Visit: No Status: Acute Assessment and Plan: continue Augmentin blood cultures reporting no growth (3) COPD exacerbation Current Visit: Yes Status: Acute Assessment and Plan: continue systemic steroids and bronchodilator support (4) DMII (diabetes mellitus, type 2) Current Visit: No Status: Chronic Assessment and Plan: continue basal and sliding scale insulin continue medium dose insulin sliding scale monitor FS and BG ADA diet (5) Lung cancer Current Visit: No Status: Chronic Assessment and Plan: 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 (PET/CT 12/28/2017 revealed resolution of the 2 pulmonary lesions. PET/CT findings also raise concern of possible esophageal lesion.) chemoradiotherapy with weekly Carboplatin/Paclitaxel completed 02/17/2018 Adjuvant durvalumab x 10 cycles 03/17/2018-08/21/2018. Stopped secondary to pneumonitis hematology/oncology evaluation appreciated continue management as per oncology (6) HLD (hyperlipidemia) Current Visit: Yes Status: Chronic Assessment and Plan: On atorvastatin 40 mg daily at bedtime. (7) Hypertension Current Visit: Yes Status: Chronic Assessment and Plan: BP within acceptable range continue current management closely monitor BP (8) Tqaqw-jy-lhkcllf kidney injury Current Visit: Yes Status: Acute Assessment and Plan: renal function improved from previous day will continue to re-assess kidney function in the morning this appears to be around patient's baseline CKD will closely monitor (9) Constipation Current Visit: Yes Status: Resolved Assessment and Plan: laxative support as needed DVT Prophylaxis: Heparin sQ - Time Spent with Patient Total time spent is greater than 50% in coordination of care (as documented) at patient's floor/unit and/or counseling patient: 25 - 35 minutes Internal Medicine: Result - Labs CBC & Chem 7: 10/11/18 10:49 10/11/18 10:49 Labs: Short CBC 10/11/18 Range/Units 10:49 WBC 13.4 H (4.3-11.1) K/mcL Hgb 9.6 L (12.9-16.9) g/dL Hct 30.4 L (37.5-50.1) % Plt Count 204 (140-400) K/mcL Neutrophils # 11.5 H (1.6-8.9) K/mcL BMP 10/11/18 10:49 Sodium 138 Potassium 4.1 Chloride 104 Carbon Dioxide 30 H BUN 41 H Creatinine 1.91 H Glucose 136 H Calcium 8.1 L - ABG Interpretation ABG results: ABG ABG pH 7.36 pH Units (7.32-7.45) 10/09/18 09:02 ABG pCO2 53 mmHg (35-45) H 10/09/18 09:02 ABG pO2 81 mmHg (85-104) L 10/09/18 09:02 ABG O2 Saturation 95 % (95-98) 10/09/18 09:02 PT/INR, D-dimer PT 12.6 Seconds (9.4-12.1) H 10/01/18 11:07 Consult Discharge Plan - Plan [facility]errals: [facility] [Primary Care Provider] - (1) Acute and chronic respiratory failure Qualifiers: Respiratory failure complication: hypoxia Qualified Code(s): J96.21 - Acute and chronic respiratory failure with hypoxia (4) DMII (diabetes mellitus, type 2) Qualifiers: Diabetes mellitus intermodal customer service insulin use: without intermodal customer service use Diabetes mellitus complication status: with kidney complications Chronic kidney disease stage: stage 3 (moderate) (5) Lung cancer Qualifiers: Laterality: right Lung location: lower lobe of lung Qualified Code(s): C34.31 - Malignant neoplasm of lower lobe, right bronchus or lung (6) HLD (hyperlipidemia) Qualifiers: Hyperlipidemia type: unspecified Qualified Code(s): E78.5 - Hyperlipidemia, unspecified (7) Hypertension Qualifiers: Hypertension type: unspecified Qualified Code(s): I10 - Essential (primary) hypertension (8) Oqtse-wo-rxufygs kidney injury Qualifiers: Acute renal failure type: unspecified Chronic kidney disease stage: stage 3 (moderate) Qualified Code(s): N17.9 - Acute kidney failure, unspecified; N18.3 - Chronic kidney disease, stage 3 (moderate) (9) Constipation Qualifiers: Constipation type: drug induced constipation Qualified Code(s): K59.03 - Drug induced constipation
[2018-10-12] MEDS: Ipratropium/Albuterol Neb 3 ML IH SCH ×3 (03:30→11:43)
[2018-10-12] MEDS: *HR* Heparin 5,000 UNIT/ML VIAL SQ SCH (05:39)
[2018-10-12 05:56] LABS: Basophils % 0.1 %; Eosinophils % 0.2 %; Hematocrit 31.1 % (37.5-50.1); Hemoglobin 9.4 g/dL (12.9-16.9); Immature Granulocytes % 0.6 % (0-4); Lymphocytes # 0.7 K/mcL (0.6-4.6); Lymphocytes % 5.4 %; Mean Corpuscular HGB Conc 30.2 g/dL (31.6-35.5); Mean Corpuscular Hemoglobin 28.8 pg (28.0-33.3); Mean Corpuscular Volume 95.4 fL (83.0-100.0); Mean Platelet Volume 10.1 fL (9.4-12.4); Monocytes # 0.8 K/mcL (0.0-1.3); Monocytes % 6.3 %; Neutrophils # 10.9 K/mcL (1.6-8.9); Platelet Count 193 K/mcL (140-400); Red Blood Count 3.26 M/mcL (4.19-5.50); Red Cell Distribution Width 14.8 % (11.5-14.5); Segmented Neutrophils % 87.4 %
[2018-10-12 06:25] LABS: Calcium 8.2 mg/dL (8.6-10.3); Magnesium 1.9 mg/dL (1.6-2.6); Phosphorous 3.4 mg/dL (2.7-4.5); Potassium 4.7 mEq/L (3.5-5.1)
[2018-10-12] MEDS: Budesonide/Formoterol 160/4.5 1 PUFF INH IH SCH (07:27)
[2018-10-12] MEDS: Sennosides/Docusate Sodium TABLET PO SCH (08:51)
[2018-10-12] MEDS: predniSONE 20 MG TABLET PO SCH (08:51)
[2018-10-12] MEDS: Gabapentin 300 MG CAPSULE PO SCH (08:51)
[2018-10-12] MEDS: Insulin DETEMIR 100 UNIT/ML X5UNITS SQ SCH (08:52)
[2018-10-12] MEDS: Aspirin Enteric Coated 81 MG Tablet PO SCH (08:52)
[2018-10-12] MEDS: Insulin LISPRO 300 UNITS/3 ML VIAL SQ SCH ×2 (08:52→12:17)
[2018-10-12] MEDS: amLODIPine 5 MG TABLET PO SCH (08:52)
[2018-10-12] MEDS: Metoprolol XL (24 HR) Succ 50 MG TAB.ER.24H PO SCH (08:52)
[2018-10-12] MEDS ORDERED: amLODIPine 5 MG TABLET PO ONE (10:02)
--- NOTE | 2018-10-12 10:46 | Physician Discharge Referral ---
[facility] Referral Info Transfer To: F Provider in Charge after Transfer: PCP Institutional Level of Care: Skilled - Diagnosis (1) Acute and chronic respiratory failure Priority: Primary Status: Resolved (2) HCAP (healthcare-associated pneumonia) Priority: Secondary Status: Acute (3) COPD exacerbation Priority: Secondary Status: Acute (4) DMII (diabetes mellitus, type 2) Priority: Secondary Status: Chronic (5) Lung cancer Priority: Secondary Status: Chronic (6) HLD (hyperlipidemia) Priority: Secondary Status: Chronic (7) Hypertension Priority: Secondary Status: Chronic (8) Ifzyx-ki-meooedu kidney injury Priority: Secondary Status: Resolved (9) Constipation Priority: Secondary Status: Resolved - Transfer Medications Prescriptions: Tramadol HCl [Ultram] 50 mg PO BID PRN 2 Days #5 tablet PRN Reason: Pain Home Medications: Aspirin Enteric Coated [Aspirin EC] 81 mg PO DAILY 10/27/17 [History] Cholecalciferol (D-3) [Vitamin D] 4,000 unit PO DAILY 10/27/17 [History] DULoxetine [Cymbalta] 30 mg PO BID 10/27/17 [History] Cyanocobalamin (Vitamin B-12) [Vitamin B-12] 1,000 mcg PO Q48H 12/21/17 [History] Lidocaine/Prilocaine [Emla] 1 appl TP DAILY #30 gm 01/02/18 [Rx] GuaiFENesin/Dextromethorphan [Robitussin/Dm] 5 ml PO Q6HR PRN #240 ml 04/28/18 [Rx] Budesonide/Formoterol 160/4.5 [Symbicort 160/4.5] 2 puff IH BID #1 hfa.aer.ad 06/09/18 [Rx] Pantoprazole Sodium [Protonix] 40 mg PO DAILY 06/19/18 [History] Ondansetron HCl [Zofran] 4 mg PO TID PRN 06/27/18 [History] Insulin ASPART [Novolog Flexpen] 0 unit SQ TIDAC PRN 09/25/18 [History] Insulin Glargine,Hum.rec.anlog [Lantus Solostar] 14 unit SQ HS 09/25/18 [History] Montelukast [Singulair] 10 mg PO DAILY 09/25/18 [History] Albuterol Sulfate [Albuterol Inhaler] 2 puff IH QID PRN 09/30/18 [History] Atorvastatin Calcium [Lipitor] 40 mg PO QPM 09/30/18 [History] Chlorhex Gl/Glycerin/He-Cell [Lubricating Jelly] 1 appl TP AD 09/30/18 [History] Gabapentin [Neurontin] 600 mg PO BID 09/30/18 [History] Povidone-Iodine 1 each TP AD PRN 09/30/18 [History] Propylene Glycol/Peg 400 [Systane 0.3-0.4% Eye Drops] 1 drop BOTH EYES DAILY PRN 09/30/18 [History] Tiotropium [place] [Spiriva Respimat] 2 puff IH DAILY 09/30/18 [History] Acetaminophen [Tylenol] 650 mg PO Q6HR PRN tablet 10/12/18 [Rx] Amoxicillin/Clavulanate [Augmentin] 875 mg PO BIDWM #3 tablet 10/12/18 [Rx] Ipratropium/Albuterol Neb [Duoneb] 3 ml IH [id number] inhsol 10/12/18 [Rx] Melatonin 3 mg PO HS PRN tablet 10/12/18 [Rx] Metoprolol XL (24 HR) Succ [Toprol Xl] 50 mg PO DAILY tab.er.24h 10/12/18 [Rx] Sennosides/Docusate Sodium [Senna Plus] 1 each PO BID tablet 10/12/18 [Rx] Tramadol HCl [Ultram] 50 mg PO BID PRN 2 Days #5 tablet 10/12/18 [Rx] amLODIPine [Norvasc] 5 mg PO DAILY tablet 10/12/18 [Rx] predniSONE [PredniSONE] 40 mg PO DAILY #2 tablet 10/12/18 [Rx] Allergies/Adverse Reactions: Allergy/AdvReac Type Severity Reaction Status Date / Time Cyclobenzaprine Allergy See Verified 09/25/18 13:37 Comments methocarbamol Allergy See Verified 09/25/18 13:37 Comments doxazosin AdvReac See Verified 09/25/18 13:37 Comments - Respiratory Orders Smoking Cessation: Smoking cessation has been advised. For more information, call the [place] Tobacco Quit Line at 7-651-JHTO-NOW. CERTIFICATION: I certify that the transfer of the above named patient to an Extended Care Facility is necessary for the continuing treatment of the diagnosis listed. The above information is true and accurate reflection of patient's current co ndition. Confidential - Redisclosure prohibited without a patient's written consent.
--- NOTE | 2018-10-12 10:51 | Discharge Summary ---
- NOTES TO OUTPATIENT PROVIDER Notes to Outpatient Provider: patient was admitted for acute on chronic respiratory failure secondary to COPD exacerbation, PNA, and pleural effusion secondary to underlying malignancy. He was treated with systemic steroids, abx support and underwent therapeutic thoracentesis and bronchoscopy. Date of Encounter: 10/12/18 Time of Encounter: 09:45 - Discharge Diagnosis (1) Acute and chronic respiratory failure Priority: Primary Status: Resolved Qualifiers: Respiratory failure complication: hypoxia Qualified Code(s): J96.21 - Acute and chronic respiratory failure with hypoxia (2) HCAP (healthcare-associated pneumonia) Priority: Secondary Status: Acute (3) COPD exacerbation Priority: Secondary Status: Acute (4) DMII (diabetes mellitus, type 2) Priority: Secondary Status: Chronic Qualifiers: Diabetes mellitus [facility] insulin use: without oil heaterman use Diabetes mellitus complication status: with unspecified complications Qualified Code(s): E11.8 - Type 2 diabetes mellitus with unspecified complications (5) Lung cancer Priority: Secondary Status: Chronic Qualifiers: Laterality: right Lung location: lower lobe of lung Qualified Code(s): C34.31 - Malignant neoplasm of lower lobe, right bronchus or lung (6) HLD (hyperlipidemia) Priority: Secondary Status: Chronic Qualifiers: Hyperlipidemia type: unspecified Qualified Code(s): E78.5 - Hyperlipidemia, unspecified (7) Hypertension Priority: Secondary Status: Chronic Qualifiers: Hypertension type: unspecified Qualified Code(s): I10 - Essential (primary) hypertension (8) [place] kidney injury Priority: Secondary Status: Resolved Qualifiers: Acute renal failure type: unspecified Chronic kidney disease stage: stage 3 (moderate) Qualified Code(s): N17.9 - Acute kidney failure, unspecified; N18.3 - Chronic kidney disease, stage 3 (moderate) (9) Constipation Priority: Secondary Status: Resolved Qualifiers: Constipation type: drug induced constipation Qualified Code(s): K59.03 - Drug induced constipation Hospital course: Mr. 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 Patient was closely followed by pulmonology and oncology during this hospitalization. He underwent therapeutic thoracentesis and was started on systemic steroids and IV antibiotics. He also underwent bronchoscopy which reported compression of right upper lobe due to mucous plugging. Patient responded appropriately to steroids, therapeutic thoracentesis, IV antibiotic support. Patient was evaluated by physical therapy and [facility] facility was recommended. Patient is currently back to baseline respiratory status and is medically stable for discharge to [facility]. Patient is seen and examined earlier today and reported of improvement in his respiratory status. Denied any abdominal pain, shortness of breath, chest pain, nausea, vomiting, fever or chills. Patient is to follow-up with PCP, oncology, pulmonology after discharge. Discharge discussed with: patient, nurse, social work, case management - Time Spent with Patient Total time spent providing and/or coordinating discharge services: 38minutes Time spent: Greater than 30 minutes - Discharge Medications Prescriptions: New Amoxicillin/Clavulanate [Augmentin] 875 mg PO BIDWM #3 tablet Ipratropium/Albuterol Neb [Duoneb] 3 ml IH [id number] inhsol amLODIPine [Norvasc] 5 mg PO DAILY tablet predniSONE [PredniSONE] 40 mg PO DAILY #2 tablet Sennosides/Docusate Sodium [Senna Plus] 1 each PO BID tablet Metoprolol XL (24 HR) Succ [Toprol Xl] 50 mg PO DAILY tab.er.24h Acetaminophen [Tylenol] 650 mg PO Q6HR PRN tablet PRN Reason: Mild Pain Melatonin 3 mg PO HS PRN tablet PRN Reason: Insomnia Continued Aspirin Enteric Coated [Aspirin EC] 81 mg PO DAILY Cholecalciferol (D-3) [Vitamin D] 4,000 unit PO DAILY DULoxetine [Cymbalta] 30 mg PO BID Cyanocobalamin (Vitamin B-12) [Vitamin B-12] 1,000 mcg PO Q48H Lidocaine/Prilocaine [Emla] 1 appl TP DAILY #30 gm GuaiFENesin/Dextromethorphan [Robitussin/Dm] 5 ml PO Q6HR PRN #240 ml PRN Reason: Cough Budesonide/Formoterol 160/4.5 [Symbicort 160/4.5] 2 puff IH BID #1 hfa.aer.ad Pantoprazole Sodium [Protonix] 40 mg PO DAILY Ondansetron HCl [Zofran] 4 mg PO TID PRN PRN Reason: Nausea Insulin Glargine,Hum.rec.anlog [Lantus Solostar] 14 unit SQ HS Montelukast [Singulair] 10 mg PO DAILY Insulin ASPART [Novolog Flexpen] 0 unit SQ TIDAC PRN PRN Reason: PER SLIDING SCALE Gabapentin [Neurontin] 600 mg PO BID Albuterol Sulfate [Albuterol Inhaler] 2 puff IH QID PRN PRN Reason: Shortness Of Breath Atorvastatin Calcium [Lipitor] 40 mg PO QPM Povidone-Iodine 1 each TP AD PRN PRN Reason: WOUND CARE Propylene Glycol/Peg 400 [Systane 0.3-0.4% Eye Drops] 1 drop BOTH EYES DAILY PRN PRN Reason: Dry Eye(S) Tiotropium Chancellor [Spiriva Respimat] 2 puff IH DAILY Chlorhex Gl/Glycerin/He-Cell [Lubricating Jelly] 1 appl TP AD Tramadol HCl [Ultram] 50 mg PO BID PRN 2 Days #5 tablet PRN Reason: Pain Discontinued Acetaminophen [Tylenol] 650 mg PO QPM Bisacodyl [Dulcolax] 5 mg PO DAILY PRN #30 tablet PRN Reason: Constipation Acetaminophen [Tylenol] 325 mg PO QAM Home Medications: Aspirin Enteric Coated [Aspirin EC] 81 mg PO DAILY 10/27/17 [History] Cholecalciferol (D-3) [Vitamin D] 4,000 unit PO DAILY 10/27/17 [History] DULoxetine [Cymbalta] 30 mg PO BID 10/27/17 [History] Cyanocobalamin (Vitamin B-12) [Vitamin B-12] 1,000 mcg PO Q48H 12/21/17 [History] Lidocaine/Prilocaine [Emla] 1 appl TP DAILY #30 gm 01/02/18 [Rx] GuaiFENesin/Dextromethorphan [Robitussin/Dm] 5 ml PO Q6HR PRN #240 ml 04/28/18 [Rx] Budesonide/Formoterol 160/4.5 [Symbicort 160/4.5] 2 puff IH BID #1 hfa.aer.ad 06/09/18 [Rx] Pantoprazole Sodium [Protonix] 40 mg PO DAILY 06/19/18 [History] Ondansetron HCl [Zofran] 4 mg PO TID PRN 06/27/18 [History] Insulin ASPART [Novolog Flexpen] 0 unit SQ TIDAC PRN 09/25/18 [History] Insulin Glargine,Hum.rec.anlog [Lantus Solostar] 14 unit SQ HS 09/25/18 [History] Montelukast [Singulair] 10 mg PO DAILY 09/25/18 [History] Albuterol Sulfate [Albuterol Inhaler] 2 puff IH QID PRN 09/30/18 [History] Atorvastatin Calcium [Lipitor] 40 mg PO QPM 09/30/18 [History] Chlorhex Gl/Glycerin/He-Cell [Lubricating Jelly] 1 appl TP AD 09/30/18 [History] Gabapentin [Neurontin] 600 mg PO BID 09/30/18 [History] Povidone-Iodine 1 each TP AD PRN 09/30/18 [History] Propylene Glycol/Peg 400 [Systane 0.3-0.4% Eye Drops] 1 drop BOTH EYES DAILY PRN 09/30/18 [History] Tiotropium Chancellor [Spiriva Respimat] 2 puff IH DAILY 09/30/18 [History] Acetaminophen [Tylenol] 650 mg PO Q6HR PRN tablet 10/12/18 [Rx] Amoxicillin/Clavulanate [Augmentin] 875 mg PO BIDWM #3 tablet 10/12/18 [Rx] Ipratropium/Albuterol Neb [Duoneb] 3 ml IH [id number] inhsol 10/12/18 [Rx] Melatonin 3 mg PO HS PRN tablet 10/12/18 [Rx] Metoprolol XL (24 HR) Succ [Toprol Xl] 50 mg PO DAILY tab.er.24h 10/12/18 [Rx] Sennosides/Docusate Sodium [Senna Plus] 1 each PO BID tablet 10/12/18 [Rx] Tramadol HCl [Ultram] 50 mg PO BID PRN 2 Days #5 tablet 10/12/18 [Rx] amLODIPine [Norvasc] 5 mg PO DAILY tablet 10/12/18 [Rx] predniSONE [PredniSONE] 40 mg PO DAILY #2 tablet 10/12/18 [Rx] Allergies/Adverse Reactions: Allergy/AdvReac Type Severity Reaction Status Date / Time Cyclobenzaprine Allergy See Verified 09/25/18 13:37 Comments methocarbamol Allergy See Verified 09/25/18 13:37 Comments doxazosin AdvReac See Verified 09/25/18 13:37 Comments Date of admission: 09/30/18 06:03 [facility] care physician[facility] Consults: 10/02/18 09:05 Consult to Nurse Navigator [CONS] Routine Comment: pn,copd 10/02/18 09:45 Consult to Interventional Radiology [CONS] Routine Consulting Provider: Radiology Interventional Cols Reason for Consult: evalute aport Time Notified: 09:45 Call Completed: Yes 10/02/18 12:12 Consult to Interventional Radiology [CONS] Routine Consulting Provider: Radiology Interventional Cols Reason for Consult: aport removal Time Notified: 12:13 Call Completed: Yes 10/03/18 11:34 Consult to Oncology Hematology [CONS] Routine Consulting Provider: Venita West Reason for Consult: defective port Call Completed: Yes 10/03/18 16:51 Consult to Pulmonology [CONS] Routine Consulting Provider: Pulm [facility] Reason for Consult: reviec CT chest, consider bronch Call Completed: Yes 10/03/18 19:42 Consult to Interventional Radiology [CONS] Routine Consulting Provider: Radiology Interventional Cols Reason for Consult: Loculated possible malignant pleural effusion need to be sent for cytology for thoracentesis Time Notified: 20:00 Call Completed: No 10/04/18 15:09 Consult to Occupational Therapy [CONS] Routine Comment: Evaluate, develop and implement POC Reason for Consult: eval for [facility], will need [facility], need notes MARIANO once pt is seen Does patient have active BEDREST order?: No Is patient medically & hemodynamically stable?: Yes Consult to Physical Therapy [CONS] Routine Comment: Evaluate, develop and implement POC Reason for Consult: eval for poss ecf, will need [facility], need notes MARIANO once pt is seen Does patient have active BEDREST order?: No Is patient medically & hemodynamically stable?: Yes 10/11/18 14:18 Consult to International Project Engineer [CONS] Routine Reason for SW Consult: needs [facility] Discharging clinician: Janet Rubi Anticipated date of discharge: 10/12/18 - Constitutional Vitals: Temp Pulse Resp BP Pulse Ox 97.9 F 85 18 144/69 91 10/12/18 07:21 10/12/18 07:21 10/12/18 07:27 10/12/18 10:27 10/12/18 07:27 Exam: Vitals: Reviewed General: AAO x 3, no acute distress Cardiovascular: Irregularly irregular, normal S1 & S2, no rubs, murmurs or gallops. Lungs: No wheezes, decreased breath sounds, equal air entry bilaterally Abdomen: Soft, non-tender, no rigidity, normal bowel sounds Extremities: trace pedal edema, no tenderness Neurological: No focal neurological abnormality. Rest of the physical exam is non contributory - Patient Status Disposition: Transfer SNF - Discharge Instructions Instructions: Acute Respiratory Distress Syndrome (DC), Chronic Obstructive Pulmonary Disease (DC) Follow Up With: [facility] [Primary Care Provider] - Additional Instructions: 1. Please follow up with your primary care physician, oncologist, and postdoctoral research fellow within one week after your discharge from the hospital. 2. Please continue oral antibiotic and prednisone as prescribed 3. Please seek medical help if you have difficulty breathing or if chest pain occurs. 4. Please continue all your medications as prescribed - Diet and Activity Activity: wear oxygen at all times, wear oxygen at night (bipap at bedtime ) Diet: diabetic diet, low fat, low cholesterol, low salt diet
[2018-10-12 11:51] VITALS: BP 145/62
[2018-10-13] MEDS ORDERED: amLODIPine 5 MG TABLET PO SCH ×2 (09:00)
== END 2018-10-12 12:15 | DRG 871 ==
LOC: 2ANU → SUATTDRO 06:03
PROVIDERS: ADMIT Internal Medicine; ATTEND Internal Medicine
PROC: ENDOBRF (2018-10-05 11:45)